=== PATIENT | female | born 1965 | race Caucasian/White ===

== ENCOUNTER 2019-11-27 10:09 | Outpatient (CLI) | payer OTHER, SELFPAY ==
--- NOTE | 2019-11-27 10:27 | XR_ITS ---
WS: [id number] Lumbar spine, 3 views, 11/27/2019 Clinical Data: sciatic nerve pain Comparison: Lumbar spine, 12/17/2013. Findings: No compression fractures or subluxation is seen. There is degenerative disc narrowing at L4-L5. Anter ior osteophyte formation at L4 and L5 is noted.. The transverse processes and SI joints are normal. XR/XR lumbar spine 2-3V* [id number] Impression: 1. Degenerative disc narrowing at L4-L5. 2. Moderate anterior osteophytes at L4 and L5.
== END 2019-11-27 10:10 | disposition home or self-care (01) ==
LOC: RAD 10:14
PROVIDERS: Family Provider Nurse Practitioner; PCP Nurse Practitioner; Visit Provider Nurse Practitioner Family
DX: M54.31 Sciatica, right side (principal); M54.32 Sciatica, left side; M47.896 Other spondylosis, lumbar region; M25.78 Osteophyte, vertebrae
CPT/HCPCS: 72100

== ENCOUNTER → 2021-03-26 11:26 | Outpatient (BNVA) | payer OTHER, SELFPAY | PROVIDERS: Family Provider Nurse Practitioner; PCP Nurse Practitioner; Visit Provider Family Medicine | DX: M35.3 Polymyalgia rheumatica (principal); M25.50 Pain in unspecified joint | CPT/HCPCS: 84550; 85651; 86160; 86162; 86235; 86255; 86376; 86431 ==

== ENCOUNTER 2021-05-09 15:45 | Emergency (ER) | payer OTHER, SELFPAY ==
[2021-05-09 16:16] VITALS: BP 144/89; PULSE 78; RESP 18; TEMP 36.7; O2SAT 98; BMI 23.6
[2021-05-09 16:37] VITALS: BP 128/82; PULSE 78; RESP 16; O2SAT 99
--- NOTE | 2021-05-09 17:51 | W.ED.GENADLT ---
HPI - General Adult General: Chief complaint: COVID symptoms Stated complaint: covid + with symptoms Time Seen by Provider: 05/09/21 16:26 History of Present Illness: HPI narrative: HPI: This is a 56 yo patient w/ hx of COVID diagnosis 7 days ago presenting to the ED with nausea/vomiting/diarrhea and decreased p.o. intake since diagnosis. Denies cough, malaise, generalized weakness, loss of taste, chest pain, N/V, diaphoresis, exertional shortness of breath, or complaints. Denies any pleuritic chest pain, recent surgery/immobilization/travel, or hematemesis or hx of VTE in the past. Patient has a portable pulse ox at home with normal reading, denies any exertional chest pain or shortness of breath Onset: 7 days ago Duration: ongoing for the last 7 days Location: home Severity: mild Review of Systems Narrative: Constitutional: No subjective fever, no generalized weakness HEENT: No vision changes CV: No chest pain, no palpitations PULM: no cough, no dyspnea. GI: No abdominal pain, +N/+V/+D. : No dysuria MSKEL: No muscle pain SKIN: No new rashes, no lesions. NEURO: No headache, no focal weakness. HEME: No visible bruises PSYCH: Normal mood PFSH ED PFSH: Medical History (Updated 05/09/21 @ 18:16 by Rose Phillips MD) Lumbago with sciatica Polymyalgia rheumatica Surgical History No history of previous surgery Family History Father Cancer Colon cancer Sister Cancer Colon cancer Diabetes Mother Diabetes Rheumatoid arthritis Grandmother CAD (coronary artery disease) Social History Smoking and tobacco status: never smoked Alcohol intake: never Lives independently: Yes Household members: family Housing: House Marital status: / History of recent travel: No Physical Exam Narrative: EXAM NARRATIVE: Head: Atraumatic Eyes: PERRL, conjunctiva without injection ENT: Mucous membrane moist NECK: Supple without lymphadenopathy LUNGS: Clear lung sounds, no crackles/wheezes/rhonchi on exam CV: RRR ABDOMEN: Soft, nontender in all quadrants, no guarding or rebound tenderness no CVA tenderness EXTREMITY: Normal ROM SKIN: No rash or erythema NEURO: Awake and alert. No focal motor deficits. PSYCH: Normal mood and affect. Course Vital Signs: Vital signs: Vital Signs Temperature 98.1 F 05/09/21 16:16 Pulse Rate 65 05/09/21 18:42 Respiratory Rate 18 05/09/21 18:42 Blood Pressure 121/83 05/09/21 18:42 Pulse Oximetry 97 05/09/21 18:42 MDM - General Adult MDM Narrative: Medical decision making narrative: 56yo patient presenting to the ED nausea vomiting diarrhea after diagnosis of Covid 7 days ago. Patient has had decreased p.o. intake. On arrival, patient has O2 sat greater than 95%. No signs of increased work of breathing. Intervention: Zofran, reassess [6:13] On reassessment, patient continues to in in respiratory distress. No signs of hypoxia. On ambulation, patient continues to have persistent O2 sat > 95%. Patient has been to tolerate p.o. without any difficulty in the emergency room after Zofran. Rx: Zofran as needed nausea vomiting Disposition: Discharge. Strict return instructions discussed at bedside including any signs of respiratory distress, dehydration, persistent fever, or any new or concerning symptoms. Patient in agreement with the plan and reassures me that the patient will follow up a primary care provider in 24-48 hrs for revaluation for any concerns or other issues. Discharge Plan Discharge Patient Disposition: Home Clinical Impression: Nausea & vomiting, Diarrhea, COVID-19 Condition: Stable Prescriptions: New Zofran 4 mg tablet 4 mg PO TID PRN (Reason: nausea and vomiting) 3 Days RF: 0 No Action celecoxib [Celebrex] 200 mg capsule 200 mg PO BID Qty: 60 RF: 1 ondansetron 8 mg tablet,disintegrating 8 mg PO Q8H PRN (Reason: nausea and vomiting) Qty: 20 RF: 1 Discharge Orders: Discharge ED (Routine); Ordered 05/09/21 Ordered By: Rose Phillips Referrals: Julisa Santiago MD [Primary Care Provider] - Discharge Diet: Advance as tolerated Discharge Activity: Resume usual activity Patient Instructions: Severe Acute Respiratory Syndrome (SARS) (ED) Activity Restrictions/Additional Instructions: Come back if your symptoms worsen. 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
[2021-05-09] MEDS: ondansetron 4 MG Tablet PO (17:52)
[2021-05-09 18:42] VITALS: BP 121/83; PULSE 65; RESP 18; O2SAT 97
== END 2021-05-09 18:42 | disposition home or self-care (01) ==
PROVIDERS: Emergency Provider Emergency Medicine; PCP Family Medicine
DX: U07.1 COVID-19 (principal)
CPT/HCPCS: 99282; Q0162

== ENCOUNTER 2021-05-19 11:37 | Outpatient (CLI) | payer OTHER, SELFPAY ==
--- NOTE | 2021-05-19 11:58 | XRR_ITS ---
PROCEDURE INFORMATION: Exam: XR Right Foot Exam date and time: 05/19/2021 11:58 AM Age: 56 years old Clinical indication: Pain; Foot; Bilateral; Additional info: Z79.899 - other retirement (current) drug therapy TECHNIQUE: Imaging protocol: XR Right foot. Views: 3 or more views. COMPARISON: CR XR knee RT 3V* [id number] 05/19/2021 12:20 PM FINDINGS: Bones/joints: No irregular osseous erosions. Joint spaces of the foot are preserved. Negative for fracture. Soft tissues: Normal. XR/XR foot RT min 3V* [id number] IMPRESSION: No radiographic sequela of inflammatory arthropathy involving the right foot.
--- NOTE | 2021-05-19 11:58 | XRR_ITS ---
PROCEDURE INFORMATION: Exam: XR Right Hand Exam date and time: 05/19/2021 11:58 AM Age: 56 years old Clinical indication: Pain; Hand; Bilateral; Additional info: Z79.899 - other skilled nursing (current) drug therapy TECHNIQUE: Imaging protocol: XR Right hand. Views: 3 or more views. COMPARISON: No relevant prior studies available. FINDINGS: Bones/joints: No irregular osseous erosions. Joint spaces of the hand and wrist are preserved. Negative for fracture. Soft tissues: Normal. XR/XR hand RT min 3V* [id number] IMPRESSION: No radiographic sequela of inflammatory arthropathy involving the right hand/wrist.
--- NOTE | 2021-05-19 11:58 | XRR_ITS ---
PROCEDURE INFORMATION: Exam: XR Chest Exam date and time: 05/19/2021 11:58 AM Age: 56 years old Clinical indication: Pain; Other: Joint; Additional info: Z79.899 - other [facility] (current[facility] drug therapy TECHNIQUE: Imaging protocol: XR of the chest. Views: 2 views. COMPARISON: CT Cervical Spine wo* [id number] 07/24/2016 12:02 PM FINDINGS: Lungs: Mild biapical scarring. Some suspected minor scarring at the right lung base. No consolidation. Pleural spaces: Unremarkable. No pleural effusion. No pneumothorax. Heart/Mediastinum: Unremarkable. No cardiomegaly. Bones/joints: Visualized osseous structures are intact. XR/XR chest 2V* [id number] IMPRESSION: Minor areas of scarring. No focal consolidation.
--- NOTE | 2021-05-19 11:58 | XRR_ITS ---
PROCEDURE INFORMATION: Exam: XR Left Foot Exam date and time: 05/19/2021 11:58 AM Age: 56 years old Clinical indication: Pain; Foot; Bilateral; Additional info: Z79.899 - other group home (current) drug therapy TECHNIQUE: Imaging protocol: XR Left foot. Views: 3 or more views. COMPARISON: CR XR knee LT 3V* [id number] 05/19/2021 12:23 PM FINDINGS: Bones/joints: No irregular osseous erosions. Joint spaces of the left foot are preserved. Negative for fracture. Soft tissues: Normal. XR/XR foot LT min 3V* [id number] IMPRESSION: No radiographic sequela of inflammatory arthropathy involving the left foot.
--- NOTE | 2021-05-19 11:58 | XRR_ITS ---
PROCEDURE INFORMATION: Exam: XR Left Hand Exam date and time: 05/19/2021 11:58 AM Age: 56 years old Clinical indication: Pain; Hand; Bilateral; Additional info: Z79.899 - other shelter (current) drug therapy TECHNIQUE: Imaging protocol: XR Left hand. Views: 3 or more views. COMPARISON: No relevant prior studies available. FINDINGS: Bones/joints: No irregular osseous erosions. Joint spaces are preserved. Negative for fracture. Soft tissues: Normal. XR/XR hand LT min 3V* [id number] IMPRESSION: No radiographic sequela of inflammatory arthropathy involving the left hand/wrist.
--- NOTE | 2021-05-19 11:58 | XRR_ITS ---
PROCEDURE INFORMATION: Exam: XR Right Knee Exam date and time: 05/19/2021 11:58 AM Age: 56 years old Clinical indication: Pain and condition or disease; Multiple sites; Type of osteoarthritis not specified; Bilateral; Knee; Additional info: M19.90 - unspecified osteoarthritis, unspecified site TECHNIQUE: Imaging protocol: XR Right knee. Views: 3 views. COMPARISON: No relevant prior studies available. FINDINGS: Bones/joints: No irregular osseous erosions. Joint spaces are preserved. Negative for fracture. Soft tissues: Normal. XR/XR knee RT 3V* [id number] IMPRESSION: No radiographic sequela of inflammatory arthropathy involving the right knee.
--- NOTE | 2021-05-19 11:58 | XRR_ITS ---
PROCEDURE INFORMATION: Exam: XR Left Knee Exam date and time: 05/19/2021 11:58 AM Age: 56 years old Clinical indication: Pain and condition or disease; Multiple sites; Type of osteoarthritis not specified; Bilateral; Knee; Additional info: M19.90 - unspecified osteoarthritis, unspecified site TECHNIQUE: Imaging protocol: XR Left knee. Views: 3 views. COMPARISON: No relevant prior studies available. FINDINGS: Bones/joints: No irregular osseous erosions. Joint spaces of the knee are preserved. Negative for fracture. Soft tissues: Normal. XR/XR knee LT 3V* [id number] IMPRESSION: No radiographic sequela of inflammatory arthropathy involving the left knee.
[2021-05-19 14:27] LABS: 25 Hydroxy Vitamin D 28 ng/mL (30-100); Alanine Aminotransferase 21 U/L (0-33); Alkaline Phosphatase 68 IU/L (35-105); Aspartate Amino Transferase 24 U/L (0-32); Globulin 3.3 g/dL (1.3-4.6); Glomerular Filtration Rate 56.9 mL/min (90-130); Total Bilirubin 0.2 mg/dL (0.15-1.2); Total Protein 7.3 g/dL (6.6-8.7)
[2021-05-19 15:06] LABS: Hepatitis B Core AB, Total Non-Reactive (Nonreactive); Hepatitis B Surface Antigen Non-Reactive (Nonreactive); Hepatitis C Virus Antibody Non-Reactive (Nonreactive)
[2021-05-20 15:28] LABS: Cyclic Citrullinated Peptide <16 UNITS
[2021-05-21 10:28] LABS: HLA-B27 NEGATIVE (NEGATIVE)
[2021-05-21 15:32] LABS: Quantiferon Mitogen 7.88 IU/mL; Quantiferon Nil 0.01 IU/mL; Quantiferon TB Gold NEGATIVE (NEGATIVE)
== END 2021-05-19 11:38 | disposition home or self-care (01) ==
LOC: RAD 11:50
PROVIDERS: PCP Family Medicine; Visit Provider Internal Medicine Rheumatology
DX: M19.90 Unspecified osteoarthritis, unspecified site (principal); M45.9 Ankylosing spondylitis of unspecified sites in spine; Z79.899 Other long term (current) drug therapy; Z11.59 Encounter for screening for other viral diseases; Z11.1 Encounter for screening for respiratory tuberculosis; Z82.61 Family history of arthritis; Z71.89 Other specified counseling
CPT/HCPCS: 71046; 73130; 73562; 73630; 80076; 82306; 82565; 86480; 86704; 86803; 86812; 87340; 99204

== ENCOUNTER → 2021-07-08 09:20 | Outpatient (BNVA) | payer OTHER, SELFPAY | PROVIDERS: PCP Family Medicine; Visit Provider Internal Medicine Rheumatology | DX: M19.90 Unspecified osteoarthritis, unspecified site (principal); Z79.899 Other long term (current) drug therapy; M70.61 Trochanteric bursitis, right hip; M70.62 Trochanteric bursitis, left hip; Y93.9 Activity, unspecified; Z82.61 Family history of arthritis; Z71.89 Other specified counseling | CPT/HCPCS: 99214 ==

== ENCOUNTER → 2021-08-06 14:39 | Outpatient (BNVA) | payer OTHER, SELFPAY | PROVIDERS: PCP Internal Medicine Rheumatology; Visit Provider Internal Medicine Rheumatology | DX: M19.90 Unspecified osteoarthritis, unspecified site (principal); Z79.899 Other long term (current) drug therapy | CPT/HCPCS: 80076; 82565; 85025; 86140 ==

== ENCOUNTER 2021-08-16 18:36 | Emergency (ER) | payer OTHER, SELFPAY ==
[2021-08-16 19:01] VITALS: BP 105/68; PULSE 108; RESP 18; TEMP 36.9; O2SAT 98; BMI 23.8
[2021-08-16 20:25] LABS: Hematocrit 37.7 % (37.0-47.0); Hemoglobin 12.7 g/dL (11.5-15.3); Mean Corpuscular HGB Conc 33.7 g/dL (30.0-36.0); Mean Corpuscular Hemoglobin 28.9 pg (28.0-34.0); Mean Corpuscular Volume 85.9 fl (81-99); Mean Platelet Volume 9.9 fL (7.4-10.4); Platelet Count 423 10^3/cmm (130-400); Red Blood Count 4.39 10^6/uL (4.1-5.3); Red Cell Distribution Width 13.5 % (12.1-15.1); White Blood Count 9.7 10^3/uL (4.0-10.0)
--- NOTE | 2021-08-16 20:31 | W.ED.GENADLT ---
HPI - General Adult General: Chief complaint: Nausea/Vomiting/Diarrhea Stated complaint: Dehydrated From Medicine Time Seen by Provider: 08/16/21 20:01 History of Present Illness: HPI narrative: Patient is a 56-year-old female with w/ hx of RA presenting to the emergency room with watery stool the source exacerbated with p.o. intake. Patient states that no other family member has had similar symptoms. Patient denies any recent antibiotics, recent hospitalization. Patient has any melena or hematochezia in stool. Patient tells me that every time she eats, she has to go to the bathroom and has liquidy stool. Patient reports mild retching without any significant nausea or vomiting. Patient denies any fever or chills, or abdominal pain. Patient has no associated chest pain, shortness breath, palpitation, lightheadedness, complaints. No hx of Crohn's or ulcerative colitis. Onset:3 days ago Duration:3 days Location:home Severity:moderate Review of Systems Narrative: Constitutional: No fever, no chills. HEENT: No vision changes CV: No chest pain, no palpitations PULM: no cough, no dyspnea. GI: No abdominal pain, -N/-V/+D. : No dysuria MSKEL: No muscle pain SKIN: No new rashes, no lesions. NEURO: No headache, no focal weakness. HEME: No visible bruises PSYCH: Normal mood PFSH ED PFSH: Medical History High risk medication use Immunization counseling Inflammatory arthritis Lumbago with sciatica Polymyalgia rheumatica Surgical History No history of previous surgery Family History Father Cancer Colon cancer Sister Cancer Colon cancer Diabetes Mother Diabetes Rheumatoid arthritis Grandmother CAD (coronary artery disease) Other Psychiatric illness Denies family history of PMR (polymyalgia rheumatica) Lupus Hyperlipidemia Lung disease Hypertension Stroke Social History Smoking and tobacco status: never smoked Alcohol intake: never Lives independently: Yes Household members: family Housing: House Marital status: / History of recent travel: No Physical Exam Narrative: EXAM NARRATIVE: Head: Atraumatic Eyes: PERRL, conjunctiva without injection ENT: Mucous membrane moist NECK: Supple, ROM intact LUNGS: LCTAB, no crackles/rhonchi CV: Sinus tachycardia ABDOMEN: Soft, no focal TTP. NO guarding rebound, guarding, rigidity. No CVA tenderness to percussion. Neg Palacio/Neg McBurney's point tenderness, no suprabupic tenderness to palpation. EXTREMITY: Normal ROM SKIN: No rash or erythema NEURO: Awake and alert, no focal motor deficits PSYCH: Normal mood and affect Course Vital Signs: Vital signs: Vital Signs Temperature 98.4 F 08/16/21 21:07 Pulse Rate 97 08/16/21 22:22 Respiratory Rate 16 08/16/21 22:22 Blood Pressure 96/54 08/16/21 22:22 Pulse Oximetry 98 08/16/21 21:07 MDM - General Adult MDM Narrative: Medical decision making narrative: Patient is a 56 female with a history of rheumatoid arthritis presenting to the emergency room with diarrhea x3 days worse with p.o. intake. On exam, patient is mild noted to be mild tachycardic. Afebrile. Abdominal exam benign. Otherwise does not appear to be dry on exam. Work-up today includes CBC, CMP, lipase, UA, and C diff Intervention: IVF, p.o. challenge On reassessment, patient's heart rate improved with IVF. Patient is able to tolerate p.o. White count of blank which is consistent with baseline. Do not suspect acute infection as patient is afebrile. Rx maalox, pepcid PRN dyspepsia I have given patient follow up with our correctional casework specialist to be seen by our PCP for evaluation of diarrhea. Patient aware of a call from our correctional casework specialist to schedule for appointment(s) and verbalizes understanding of the importance of following up. Patient is encouraged to drink plenty water and eat food to keep up with volume output from diarrhea. Suspect gastroenteritis at this time. No suspicion for other acute intra-abdominal pathology including SBO, biliary pathology, appendicitis, diverticulitis, or other emergent condition requiring surgery. Disposition: Discharge. Patient counseled regarding diagnostic impression, treatment plan. Patient given ED strict return precautions to return for continuation, worsening, or development of new symptoms. Instructed to f/u w/ PCP regarding symptoms today. Patient verbalized understanding. Lab Data: Labs: Lab Results 08/16/21 08/16/21 20:15 20:15 WBC 9.7 10^3/uL 10^3/ uL (4.0-10.0) RBC 4.39 10^6/uL 10^6 /uL (4.1-5.3) Hgb 12.7 g/dL g/dL (11.5-15.3) Hct 37.7 % % (37.0-47.0) MCV 85.9 fl fl (81-99) MCH 28.9 pg pg (28.0-34.0) MCHC 33.7 g/dL g/dL (30.0-36.0) RDW 13.5 % % (12.1-15.1) Plt Count 423 10^3/cmm H 10 ^3/cmm (130-400) MPV 9.9 fL fL (7.4-10.4) Lymph % (Auto) Not Reportable Daggett % (Auto) Not Reportable Lymph # (Auto) Not Reportable Daggett # (Auto) Not Reportable Total Counted 100 (0-100) Atypical Lymphs % 0.0 % % (0-5) Absolute Neutrophi ls 7.6 10^3/cmm H 10 ^3/cmm (1.4-6.5) Segmented Neutroph ils 52 % % Abs Segm Neuts (Ma n) 5.0 10/cmm 10/cmm (1.6-7.1) Band Neutrophils 26.0 % % Abs Band Neuts (Ma n) 2.5 10^3/cmm H 10 ^3/cmm (0.0-1.2) Absolute Lymphocyt es 1.4 10^3/cmm 10^3 /cmm (1.2-3.4) Lymphocytes (Manua l) 14 % % Monocytes (Manual) 4.0 % % Absolute Monocytes 0.4 10^3/cmm 10^3 /cmm (0.1-0.6) Eosinophils (Manua l) 1 % % Absolute Eosinophi ls 0.0 10^3/cmm 10^3 /cmm (0.0-0.7) Basophils (Manual) 0.0 % % Absolute Basophils 0.0 10^3/cmm 10^3 /cmm (0.0-0.2) Metamyelocytes 3.0 % % Platelet Estimate Increased H (Normal) Giant Platelets 1+ H Polychromasia Trace Spherocytes Trace Sodium 137 mmol/L mmol/L (136-145) Potassium 3.8 mmol/L mmol/L (3.5-5.1) Chloride 99 mmol/L mmol/L (98-107) Carbon Dioxide 22 mmol/L mmol/L (22-29) Anion Gap 19.8 H (5-19) BUN 11 mg/dL mg/dL (6-20) Creatinine 1.1 mg/dL H mg/dL (0.5-0.9) GFR Calculation 51.0 mL/min L mL/ min (90-130) Glucose 105 mg/dL mg/dL (65-115) Calculated Osmolal ity 284 mOsm/kg L mOs m/kg (285-295) Calcium 8.5 mg/dL mg/dL (8.5-10.5) Total Bilirubin 0.4 mg/dL mg/dL (0.15-1.2) AST 31 U/L U/L (0-32) ALT 36 U/L H U/L (0-33) Alkaline Phosphata se 144 IU/L H IU/L (35-105) Total Protein 6.7 g/dL g/dL (6.6-8.7) Albumin 3.9 g/dL g/dL (3.5-5.2) Globulin 2.8 g/dL g/dL (1.3-4.6) Lipase 46 U/L U/L (13-60) Discharge Plan Discharge Patient Disposition: Home Clinical Impression: Diarrhea Condition: Stable Prescriptions: New Pepcid 20 mg tablet 20 mg PO BID PRN (Reason: abdominal pain) 10 Days Qty: 20 RF: 0 Maalox Advanced 1,000-60 mg tablet,chewable 1 tab PO TID PRN (Reason: abdominal pain) 7 Days Qty: 21 RF: 0 No Action hydroxychloroquine 200 mg tablet 200 mg PO BID Qty: 60 RF: 3 prednisone 20 mg tablet See Rx Instructions PO .COMPLEX PRN (Reason: joint pain flare) Qty: 30 RF: 1 diclofenac sodium 1 % gel 2 g topical QID Qty: 100 RF: 2 leflunomide 20 mg tablet 20 mg PO DAILY Qty: 30 RF: 3 diclofenac sodium 75 mg tablet,delayed release (DR/EC) 75 mg PO BID PRN (Reason: PRN for moderate to severe pain ) Qty: 30 RF: 1 Discharge Orders: Discharge ED (Routine); Ordered 08/16/21 Ordered By: Rose Phillips Referrals: Ty Asif MD [Primary Care Provider] - Discharge Diet: Advance as tolerated Discharge Activity: Resume usual activity Patient Instructions: Acute Diarrhea (ED) Activity Restrictions/Additional Instructions: Follow-up with your primary care provider for evaluation of your diarrhea. Come back to the emergency room you have any new or concerning complaints including fever chills, pain, worsening diarrhea, blood in the stool, or any new concerning complaints. Coding Level of Care Code ED Shark Biologist for Bert Smith
[2021-08-16] MEDS: lactated ringers 1,000 ML 999 ML IV ×2 (20:39→22:03)
[2021-08-16 20:43] LABS: Alanine Aminotransferase 36 U/L (0-33); Albumin Level 3.9 g/dL (3.5-5.2); Alkaline Phosphatase 144 IU/L (35-105); Anion Gap 19.8 (5-19); Aspartate Amino Transferase 31 U/L (0-32); Blood Urea Nitrogen 11 mg/dL (6-20); Calcium 8.5 mg/dL (8.5-10.5); Carbon Dioxide 22 mmol/L (22-29); Chloride 99 mmol/L (98-107); Globulin 2.8 g/dL (1.3-4.6); Glucose 105 mg/dL (65-115); Lipase 46 U/L (13-60); Osmolality Calculated 284 mOsm/kg (285-295); Potassium 3.8 mmol/L (3.5-5.1); Sodium 137 mmol/L (136-145); Total Bilirubin 0.4 mg/dL (0.15-1.2); Total Protein 6.7 g/dL (6.6-8.7)
[2021-08-16 20:52] LABS: Slide Review Slide Review Perform; Total Cells Counted 100 (0-100)
[2021-08-16 20:53] LABS: Absolute Neutrophil 7.6 10^3/cmm (1.4-6.5); Band Neutrophils Absolute 2.5 10^3/cmm (0.0-1.2); Eosinophils 1 %; Giant Platelets 1+; Lymphocytes 14 %; Lymphocytes Absolute 1.4 10^3/cmm (1.2-3.4); Monocytes Absolute 0.4 10^3/cmm (0.1-0.6); Platelet Estimate Increased (Normal); Polychromasia Trace; Segmented Neutrophils 52 %; Spherocytes Trace
[2021-08-16 21:07] VITALS: BP 98/67; PULSE 101; RESP 18; TEMP 36.9; O2SAT 98
[2021-08-16] MEDS: lidocaine 2% viscous 15 ML, aluminum-mag hydrox-simethicon 30 ML, sucralfate oral liq 1 GM PO (21:31)
[2021-08-16 22:22] VITALS: BP 96/54; PULSE 97; RESP 16
[2021-08-16 23:17] VITALS: BP 109/60; PULSE 94; RESP 16; O2SAT 98
--- NOTE | 2021-08-24 14:03 | DCPLANNER ---
banquet manager had message to speak with patient about getting established with a primary care physician. banquet manager called phone number [phone], unable to speak with patient at this time. banquet manager did leave a voicemail for patient to return case investigator phone call.
== END 2021-08-16 23:21 | disposition home or self-care (01) ==
PROVIDERS: Emergency Provider Emergency Medicine; PCP Internal Medicine Rheumatology
DX: R19.7 Diarrhea, unspecified (principal)
CPT/HCPCS: 80053; 83690; 85007; 85025; 87493; 96360; 96361; 99284

== ENCOUNTER → 2021-08-19 13:25 | Outpatient (BNVA) | payer OTHER, SELFPAY | PROVIDERS: PCP Internal Medicine Rheumatology; Visit Provider Nurse Practitioner Family | DX: R19.7 Diarrhea, unspecified (principal); R11.0 Nausea; K29.70 Gastritis, unspecified, without bleeding; R11.10 Vomiting, unspecified | CPT/HCPCS: 80053; 85007 ==

== ENCOUNTER 2021-08-23 01:25 | Inpatient (IN) | payer OTHER, SELFPAY ==
[2021-08-23] VITALS (7 sets, daily range): BP systolic 90–110; BP diastolic 59–72; PULSE 91–123; RESP 14–20; TEMP 36.1–37.7; O2SAT 93–98; BMI 22.8
--- NOTE | 2021-08-23 02:11 | CTR_ITS ---
PROCEDURE INFORMATION: Exam: CT Abdomen And Pelvis With Contrast Exam date and time: 08/23/2021 2:11 AM Age: 56 years old Clinical indication: Nausea and vomiting; Abdominal pain; Epigastric; Additional info: Nausea vomiting abd pain TECHNIQUE: Imaging protocol: Computed tomography of the abdomen and pelvis with contrast. Radiation optimization: All CT scans at this facility use at least one of these dose optimization techniques: automated exposure control; mA and/or kV adjustment per patient size (includes targeted exams where dose is matched to clinical indication); or iterative reconstruction. Contrast material: OMNI 300; Contrast volume: 95 ml; Contrast route: INTRAVENOUS (IV); COMPARISON: CR XR chest 2V* [id number] 05/19/2021 12:15 PM RADIATION DOSE METRICS: Total DLP (mGy-cm): 1192.46 FINDINGS: Lungs: The lung bases are clear. No effusion Liver: There is a subcentimeter low-attenuation lesion of the liver which is too small to accurately characterize but may represent a cyst. There is focal fatty infiltration along the falciform ligament. Gallbladder and bile ducts: No wall thickening, pericholecystic fluid or stones. Pancreas: There is mild peripancreatic fat stranding. Normal pancreatic enhancement. Spleen: Spleen is normal. Adrenal glands: Normal. No mass. Kidneys and ureters: There is a subcentimeter low-attenuation lesion/lesions, of the left kidney which are too small to accurately characterize by CT. Stomach and bowel: Unremarkable. No obstruction. No mucosal thickening. Appendix: No evidence of appendicitis. Intraperitoneal space: Unremarkable. No free air. No significant fluid collection. Vasculature: Unremarkable. No abdominal aortic aneurysm. Lymph nodes: Unremarkable. No enlarged lymph nodes. Urinary bladder: Unremarkable as visualized. Reproductive: Unremarkable as visualized. Bones/joints: Unremarkable. No acute fracture. Soft tissues: Unremarkable. CT/CT abdomen pelvis w con* [id number] IMPRESSION: Mild Acute pancreatitis without necrosis. COMMENTS: Consistent with the [employer]'s Incidental Findings Committee white paper (J Am Vannesa Radiol 2018): Any incidental renal lesion less than 1 cm or classified as too small to characterize, or any incidental cystic renal lesion characterized as simple-appearing, is likely benign. No follow-up imaging is recommended for these lesions per consensus recommendations based on imaging criteria. Radiation Dose CTDIVOL = (mGy): DLP = 1192.46 (mGy-cm)
[2021-08-23] MEDS: ondansetron 2 mg/ML SDV 2 mL 4 MG IVP ×3 (02:21→14:07)
[2021-08-23] MEDS: sodium chloride 0.9% 1,000 ML 999 ML IV (02:21)
[2021-08-23 02:27] LABS: Basophils # 0.2 10^3/uL (0.0-0.1); Basophils % 0.9 %; Eosinophils # 0.1 10^3/uL (0.0-0.8); Eosinophils % 0.3 %; Hematocrit 40.2 % (37.0-47.0); Hemoglobin 13.5 g/dL (11.5-15.3); Lymphocytes # 0.4 10^3/uL (0.8-4.8); Lymphocytes % 2.3 %; Mean Corpuscular HGB Conc 33.6 g/dL (30.0-36.0); Mean Corpuscular Hemoglobin 28.2 pg (28.0-34.0); Mean Corpuscular Volume 84.1 fl (81-99); Mean Platelet Volume 9.8 fL (7.4-10.4); Monocytes # 0.8 10^3/uL (0.2-0.9); Monocytes % 4.7 %; Neutrophils # 15.36 10^3/uL (1.8-7.7); Nucleated Red Blood Cells % 0 %; Platelet Count 573 10^3/cmm (130-400); Red Blood Count 4.78 10^6/uL (4.1-5.3); Red Cell Distribution Width 13.8 % (12.1-15.1); White Blood Count 16.9 10^3/uL (4.0-10.0)
[2021-08-23 02:46] LABS: Alanine Aminotransferase 22 U/L (0-33); Albumin Level 3.8 g/dL (3.5-5.2); Alkaline Phosphatase 132 IU/L (35-105); Anion Gap 22.3 (5-19); Aspartate Amino Transferase 19 U/L (0-32); Blood Urea Nitrogen 21 mg/dL (6-20); C Reactive Protein 61.8 mg/L (0.0-4.9); Calcium 8.2 mg/dL (8.5-10.5); Carbon Dioxide 21 mmol/L (22-29); Chloride 96 mmol/L (98-107); Globulin 3.3 g/dL (1.3-4.6); Glomerular Filtration Rate 22.9 mL/min (90-130); Glucose 147 mg/dL (65-115); Lipase 215 U/L (13-60); Osmolality Calculated 288 mOsm/kg (285-295); Potassium 3.3 mmol/L (3.5-5.1); Sodium 136 mmol/L (136-145); Total Bilirubin 0.5 mg/dL (0.15-1.2); Total Protein 7.1 g/dL (6.6-8.7)
[2021-08-23] MEDS: iohexol 300 mg/mL 100 mL Btl IV (02:49)
[2021-08-23 02:53] LABS: Procalcitonin 0.61 ng/mL (0-0.5)
[2021-08-23 03:07] LABS: Add Urine Microscopic? YES; Bilirubin Urine 1+ (Negative); Blood Urine Neg (Negative); Glucose Urine UA Norm (Normal); Ketones Urine 1+ (Negative); Leukocyte Esterase Urine 2+ (Negative); Nitrate Urine Positive (Negative); Protein Urine 2+ (Negative); Specific Gravity, Urine 1.025 (1.005-1.030); Urine Appearance SL Hazy (CLEAR); Urine Color Amber (Yellow); Urobilinogen Urine 4 mg/dL (Negative); pH Urine 5 (5-7)
[2021-08-23 03:23] LABS: RBC Urine 0-4 /hpf (0-2); WBC Urine 80-100 /hpf (0-5)
[2021-08-23 03:25] LABS: Add Urine Culture? Yes; Amorphous Sediment Urine 1+ /hpf; Bacteria Urine 3+ /hpf; Calcium Oxalate Crystals Urine 0-4 /hpf
[2021-08-23] MEDS: cefTRIAXone 1,000 MG in sodium chloride 0.9% (plus) 50 ML 100 MG IV ×2 (04:14→15:35)
--- NOTE | 2021-08-23 05:15 | ED_ITS ---
HPI - Nausea/Vomiting/Diarrhea General: Chief complaint: Nausea/Vomiting/Diarrhea Stated complaint: N/V Time Seen by Provider: 08/23/21 01:58 History of Present Illness: HPI Narrative: 56-year-old female with no prior history of belly surgery. She presents for the second time for similar complaints of nausea and vomiting and diarrhea. She notes her diarrhea resolved after her visit to the ER, but she is continued to have vomiting. She saw her PCP, got a shot for nausea and is still vomiting. She complains of epigastric pain wrapping around her belly into her back. No fever. No blood in the vomitus. MD elicited complaint: nausea, vomiting and abdominal pain Onset (ago): day(s) Description of vomiting: food contents and watery Associated nausea: Yes Associated abdominal pain: Yes Location of pain: Epigastric Radiation: other Pain consistency: constant Quality: aching Exacerbating factors: eating Relieving factors: none Associated symtoms: Reports decreased urine output, dizziness and nausea; Denies altered mental status, bloating, chest pain, cough, diaphoresis, dysuria, epistaxis or fevers/chills Review of Systems Const: Denies: diaphoresis ENMT: Denies: epistaxis Card: Denies: chest pain GI: Reports: nausea; Denies: bloating : Denies: dysuria Neuro: Reports: dizziness PFSH ED PFSH: Medical History High risk medication use Immunization counseling Inflammatory arthritis Lumbago with sciatica Polymyalgia rheumatica Surgical History No history of previous surgery Family History Father Cancer Colon cancer Sister Cancer Colon cancer Diabetes Mother Diabetes Rheumatoid arthritis Grandmother CAD (coronary artery disease) Other Psychiatric illness Denies family history of PMR (polymyalgia rheumatica) Lupus Hyperlipidemia Lung disease Hypertension Stroke Social History Smoking and tobacco status: never smoked Alcohol intake: never Lives independently: Yes Household members: family Housing: House Marital status: / History of recent travel: No Physical Exam Const: EXAM LIMITATIONS: no altered mental status HENMT: COMMON NORMALS: normocephalic and atraumatic HEAD & SCALP: normocephalic and atraumatic MOUTH: moist mucous membranes not abnormal Chest: COMMONS NORMALS: normal inspection of the chest Resp: COMMON NORMALS: normal respiratory effort, No use of accessory muscles and clear to auscultation bilaterally AUSCULTATION: clear to auscultation bilaterally Cardio: COMMON NORMALS: regular rate and regular rhythm RATE: regular rate RHYTHM: regular rhythm GI: COMMON NORMALS: Soft to palpation INSPECTION: Yes normal to inspection and Yes abdominal distension (Mild) PALPATION: Yes Soft to palpation and Yes Tenderness to palpation present (GI) (Epigastric) Extremity: GENERAL: No edema Course Vital Signs: Vital signs: Vital Signs Temperature 97 F L 08/23/21 01:35 Pulse Rate 100 08/23/21 05:18 Respiratory Rate 14 08/23/21 04:12 Blood Pressure 94/67 08/23/21 05:18 Pulse Oximetry 97 08/23/21 05:18 MDM - Nausea/Vomiting/Diarrhea MDM Narrative: Medical decision making narrative: White blood cell count is 17. Potassium 3.3, bicarbonate 21. Creatinine is up to 2.2 from 1.1 a few days ago. She has a urinary tract infection by urinalysis as well. She is receiving antibiotics for that. Fluid resuscitation for the pancreatitis, which appears mild by CT. Lab Data: Labs: Lab Results 08/23/21 08/23/21 08/23/21 02:18 02:18 02:40 WBC 16.9 10^3/uL H 10 ^3/uL (4.0-10.0) RBC 4.78 10^6/uL 10^6 /uL (4.1-5.3) Hgb 13.5 g/dL g/dL (11.5-15.3) Hct 40.2 % % (37.0-47.0) MCV 84.1 fl fl (81-99) MCH 28.2 pg pg (28.0-34.0) MCHC 33.6 g/dL g/dL (30.0-36.0) RDW 13.8 % % (12.1-15.1) Plt Count 573 10^3/cmm H 10 ^3/cmm (130-400) MPV 9.8 fL fL (7.4-10.4) Neut % (Auto) 91.0 % % Lymph % (Auto) 2.3 % % [place] % (Auto) 4.7 % % Eos % (Auto) 0.3 % % Baso % (Auto) 0.9 % % Neut # (Auto) 15.36 10^3/uL H 1 0^3/uL (1.8-7.7) Lymph # (Auto) 0.4 10^3/uL L 10^ 3/uL (0.8-4.8) [place] # (Auto) 0.8 10^3/uL 10^3/ uL (0.2-0.9) Eos # (Auto) 0.1 10^3/uL 10^3/ uL (0.0-0.8) Baso # (Auto) 0.2 10^3/uL H 10^ 3/uL (0.0-0.1) Nucleated RBC % (a uto) 0 % % Nucleated RBCs # 0.0 /100WBC /100W BC Sodium 136 mmol/L mmol/L (136-145) Potassium 3.3 mmol/L L mmol /L (3.5-5.1) Chloride 96 mmol/L L mmol/ L (98-107) Carbon Dioxide 21 mmol/L L mmol/ L (22-29) Anion Gap 22.3 H (5-19) BUN 21 mg/dL H mg/dL (6-20) Creatinine 2.2 mg/dL H mg/dL (0.5-0.9) GFR Calculation 22.9 mL/min L mL/ min (90-130) Glucose 147 mg/dL H mg/dL (65-115) Calculated Osmolal ity 288 mOsm/kg mOsm/ kg (285-295) Calcium 8.2 mg/dL L mg/dL (8.5-10.5) Total Bilirubin 0.5 mg/dL mg/dL (0.15-1.2) AST 19 U/L U/L (0-32) ALT 22 U/L U/L (0-33) Alkaline Phosphata se 132 IU/L H IU/L (35-105) C-Reactive Protein 61.8 mg/L H mg/L (0.0-4.9) Total Protein 7.1 g/dL g/dL (6.6-8.7) Albumin 3.8 g/dL g/dL (3.5-5.2) Globulin 3.3 g/dL g/dL (1.3-4.6) Lipase 215 U/L H U/L (13-60) Procalcitonin 0.61 ng/mL H ng/m L (0-0.5) Urine Color Gisel (Yellow) Urine Appearance Sl hazy (CLEAR) Urine pH 5 (5-7) Ur Specific Gravit y 1.025 (1.005-1.030) Urine Protein 2+ H (Negative) Urine Glucose (UA) Norm (Normal) Urine Ketones 1+ H (Negative) Urine Blood Neg (Negative) Urine Nitrate Positive H (Negative) Urine Bilirubin 1+ H (Negative) Urine Urobilinogen 4 mg/dL H mg/dL (Negative) Ur Leukocyte Gale ase 2+ H (Negative) Urine RBC 0-4 /hpf H /hpf (0-2) Urine WBC 80-100 /hpf H /hp f (0-5) Ur Squamous Epith Cells 5-10 /hpf H /hpf (0-5) Calcium Oxalate Cr ystal 0-4 /hpf H /hpf Amorphous Sediment 1+ /hpf /hpf Urine Bacteria 3+ /hpf H /hpf (NONE) Hyaline Casts 5-10 /lpf H /lpf Discharge Plan Discharge Patient Disposition: Admitted As Inpatient Admit Provider: Karely Siu Clinical Impression: Acute pancreatitis, Urinary tract infection Condition: Stable Discharge Diet: Advance as tolerated Discharge Activity: Increase activity as tolerated Coding Level of Care Code ED Multigraph Operator for [facility] Fwd Exam Detailed
--- NOTE | 2021-08-23 05:35 | PC.NURSE ---
Patient arrived to room 252 bed 2 from ER. Patient c/o of upper abd pain rates at a 4/10. Will call hospitalist for orders. No other needs voiced at this time.
--- NOTE | 2021-08-23 07:30 | P.HP_ITS ---
Providers/Chief Complaint Admitting Physician: Karely Siu MD Primary Care Provider: Julisa Santiago MD Chief Complaint: N/V History of Present Illness Jana Arriaga is a 56 year old female with past medical history of polyarthralgia, concerning for inflammatory arthritis, currently on treatment with leflunomide and hydroxychloroquine as outpatient, history of COVID-07 May 2021, currently presenting with 1 week of nausea vomiting and diarrhea which has not resolved with conservative measures. She presents today with epigastric pain, intractable nausea vomiting dehydration and MONICA. CT of the abdomen and pe, lvis showed mild acute pancreatitis. Elevated lipase noted. UA positive for nitrates, leukocyte esterase, WBC 80-100. No signs of hydronephrosis. Review of Systems General: Reports: 10 or more systems reviewed and unremarkable except in HPI and below Const: Denies: fever(s), chills or body aches Eyes: Denies: change in vision, blurry vision or photophobia ENMT: Reports: hoarseness; Denies: throat pain, enlarged tonsils, odynophagia or nasal congestion Card: Denies: chest pain, palpitations, irregular heart rhythm, edema, swelling of feet/ankles, lightheadedness, pre-syncope, dyspnea on exertion or or thopnea Resp: Denies: dyspnea, productive cough, non-productive cough, wheezing, stridor, pain on inspiration, change in phlegm color, hemoptysis or chest congestion GI: Reports: abdominal pain, nausea and vomiting; Denies: hematemesis, coffee ground emesis, dysphagia, heartburn, diarrhea, constipation, GI cramping, change in stool character, hematochezia or melena : Denies: flank pain, difficulty voiding, dysuria, urinary frequency, urinary urgency, urinary hesitancy or hematuria Musc: Denies: neck pain, back pain, extremity pain, joint swelling, joint warmth or deformity Neuro: Denies: headache(s), numbness in extremities, weakness in extremities, sensory changes, difficulty walking, frequent falls, dizziness, vertigo, behavioral changes, Slurred speech present or seizure-like activity Psych: Denies: anxiety, depression, suicidal ideation or homicidal ideation Endo: Denies: polyuria, polydipsia, tired all the time, cold intolerance or hot flashes Gregg/Lymph: Denies: easy bruising or easy bleeding Medications/Allergies Home Medications Medication Instructions Recorded Confirmed Last Taken Type diclofenac sodium 1 % topical gel 2 g TOPICAL QID #100 g 05/19/21 08/19/21 Unknown Rx hydroxychloroquine 200 mg tablet 200 mg PO BID #60 tab 05/19/21 08/19/21 Unknown Rx prednisone 20 mg tablet See Rx Instructions PO .COMPLEX 05/19/21 08/19/21 Unkn own Rx PRN #30 tab diclofenac sodium 75 mg 75 mg PO BID PRN #30 tab 07/08/21 08/19/21 Unknown Rx tablet,delayed release leflunomide 20 mg tablet 20 mg PO DAILY #30 tab 07/08/21 08/19/21 Unknown Rx famotidine [Pepcid] 20 mg PO BID PRN 10 Days #20 tab 08/16/21 08/19/21 Unknown Rx diphenoxylate-atropine 2.5 1 tab PO QID PRN 10 Days #40 tab 08/19/21 08/19/21 Unknown Rx mg-0.025 mg tablet metronidazole 500 mg tablet 500 mg PO TID 10 Days #30 tab 08/19/21 Unknown Rx promethazine 25 mg tablet 25 mg PO QID PRN 10 Days #40 tab 08/19/21 08/19/21 Unknown Rx Allergies Allergy/AdvReac Type Severity Reaction Status Date / Time Penicillins Allergy ALGY-Hives Verified 08/19/21 11:29 Sulfa (Sulfonamide Allergy ALGY-Hives Verified 08/19/21 11:29 Antibiotics) PFSH Acute PFSH: Medical History (Updated 08/23/21 @ 07:34 by Karely Siu MD) COVID-19 04/2021 High risk medication use Immunization counseling Inflammatory arthritis Lumbago with sciatica Polymyalgia rheumatica Surgical History No history of previous surgery Family History Father Cancer Colon cancer Sister Cancer Colon cancer Diabetes Mother Diabetes Rheumatoid arthritis Grandmother CAD (coronary artery disease) Other Psychiatric illness Denies family history of PMR (polymyalgia rheumatica) Lupus Hyperlipidemia Lung disease Hypertension Stroke Social History Smoking and tobacco status: never smoked Alcohol intake: never Lives independently: Yes Household members: family Housing: House Marital status: / History of recent travel: No Vitals/I&O/Wt Last Vital Signs Temp 97 F L 08/23/21 01:35 Pulse 100 08/23/21 05:18 Resp 14 08/23/21 04:12 BP 94/67 08/23/21 05:18 Pulse Ox 97 08/23/21 05:18 08/22/21 08/23/21 08/23/21 22:59 06:59 14:59 Intake Total 1050 / 1050 Balance 1050 / 1050 Weight last 48 hrs Weight 70.307 kg Weight 70.307 kg Physical Exam Narrative: EXAM NARRATIVE: General: No acute distress, AO x3 HEENT: PERRLA, pupils bilaterally equal and reactive, pallors not present Chest: Normal vesicular breath sounds, no added sounds, equal good air entry bilaterally CVS: S1-S2 regular, no murmurs, no tachycardia, no gallops, no rubs Abdomen: Soft, ttp epigastric region, no organomegaly, bowel sounds present Neuro: No focal deficits, no facial deformity, AO x3, power 5/5 in all limbs Extremities: Healthy surgical dressing present on the right hip, mild tenderness, soft no erythema. Data : 08/23/21 02:18 08/23/21 02:18 Attestation for Other Data: I personally reviewed and interpreted the following: Other data: Laboratory Results WBC 16.9 10^3/uL (4.0-10.0) H 08/23/21 02:18 RBC 4.78 10^6/uL (4.1-5.3) 08/23/21 02:18 Hgb 13.5 g/dL (11.5-15.3) 08/23/21 02:18 Hct 40.2 % (37.0-47.0) 08/23/21 02:18 MCV 84.1 fl (81-99) 08/23/21 02:18 MCH 28.2 pg (28.0-34.0) 08/23/21 02:18 MCHC 33.6 g/dL (30.0-36.0) 08/23/21 02:18 RDW 13.8 % (12.1-15.1) 08/23/21 02:18 Plt Count 573 10^3/cmm (130-400) H 08/23/21 02:18 MPV 9.8 fL (7.4-10.4) 08/23/21 02:18 Neut % (Auto) 91.0 % 08/23/21 02:18 Lymph % (Auto) 2.3 % 08/23/21 02:18 [place] % (Auto) 4.7 % 08/23/21 02:18 Eos % (Auto) 0.3 % 08/23/21 02:18 Baso % (Auto) 0.9 % 08/23/21 02:18 Neut # (Auto) 15.36 10^3/uL (1.8-7.7) H 08/23/21 02:18 Lymph # (Auto) 0.4 10^3/uL (0.8-4.8) L 08/23/21 02:18 [place] # (Auto) 0.8 10^3/uL (0.2-0.9) 08/23/21 02:18 Eos # (Auto) 0.1 10^3/uL (0.0-0.8) 08/23/21 02:18 Baso # (Auto) 0.2 10^3/uL (0.0-0.1) H 08/23/21 02:18 Nucleated RBC % (auto) 0 % 08/23/21 02:18 Nucleated RBCs # 0.0 /100WBC 08/23/21 02:18 Sodium 136 mmol/L (136-145) 08/23/21 02:18 Potassium 3.3 mmol/L (3.5-5.1) L 08/23/21 02:18 Chloride 96 mmol/L (98-107) L 08/23/21 02:18 Carbon Dioxide 21 mmol/L (22-29) L 08/23/21 02:18 Anion Gap 22.3 (5-19) H 08/23/21 02:18 BUN 21 mg/dL (6-20) H 08/23/21 02:18 Creatinine 2.2 mg/dL (0.5-0.9) H 08/23/21 02:18 GFR Calculation 22.9 mL/min (90-130) L 08/23/21 02:18 Glucose 147 mg/dL (65-115) H 08/23/21 02:18 Calculated Osmolality 288 mOsm/kg (285-295) 08/23/21 02:18 Calcium 8.2 mg/dL (8.5-10.5) L 08/23/21 02:18 Total Bilirubin 0.5 mg/dL (0.15-1.2) 08/23/21 02:18 AST 19 U/L (0-32) 08/23/21 02:18 ALT 22 U/L (0-33) 08/23/21 02:18 Alkaline Phosphatase 132 IU/L (35-105) H 08/23/21 02:18 C-Reactive Protein 61.8 mg/L (0.0-4.9) H 08/23/21 02:18 Total Protein 7.1 g/dL (6.6-8.7) 08/23/21 02:18 Albumin 3.8 g/dL (3.5-5.2) 08/23/21 02:18 Globulin 3.3 g/dL (1.3-4.6) 08/23/21 02:18 Lipase 215 U/L (13-60) H 08/23/21 02:18 Procalcitonin 0.61 ng/mL (0-0.5) H 08/23/21 02:18 Urine Color Gisel (Yellow) 08/23/21 02:40 Urine Appearance Sl hazy (CLEAR) 08/23/21 02:40 Urine pH 5 (5-7) 08/23/21 02:40 Ur Specific [place] 1.025 (1.005-1.030) 08/23/21 02:40 Urine Protein 2+ (Negative) H 08/23/21 02:40 Urine Glucose (UA) Norm (Normal) 08/23/21 02:40 Urine Ketones 1+ (Negative) H 08/23/21 02:40 Urine Blood Neg (Negative) 08/23/21 02:40 Urine Nitrate Positive (Negative) H 08/23/21 02:40 Urine Bilirubin 1+ (Negative) H 08/23/21 02:40 Urine Urobilinogen 4 mg/dL (Negative) H 08/23/21 02:40 Ur Leukocyte Esterase 2+ (Negative) H 08/23/21 02:40 Urine RBC 0-4 /hpf (0-2) H 08/23/21 02:40 Urine WBC 80-100 /hpf (0-5) H 08/23/21 02:40 Ur Squamous Epith Cells 5-10 /hpf (0-5) H 08/23/21 02:40 Calcium Oxalate Crystal 0-4 /hpf H 08/23/21 02:40 Amorphous Sediment 1+ /hpf 08/23/21 02:40 Urine Bacteria 3+ /hpf (NONE) H 08/23/21 02:40 Hyaline Casts 5-10 /lpf H 08/23/21 02:40 Impressions Abdomen/Pelvis CT 08/23/21 02:11 IMPRESSION: Mild Acute pancreatitis without necrosis. COMMENTS: Consistent with the [employer]'s Incidental Findings Committee white paper (J Am Vannesa Radiol 2018): Any incidental renal lesion less than 1 cm or classified as too small to characterize, or any incidental cystic renal lesion characterized as simple-appearing, is likely benign. No follow-up imaging is recommended for these lesions per consensus recommendations based on imaging criteria. Radiation Dose CTDIVOL = (mGy): DLP = 1192.46 (mGy-cm) A&P Assessment and plan (1) Acute pancreatitis: Status: Acute (2) Urinary tract infection: Status: Acute (3) Vomiting: Status: Acute (4) Inflammatory arthritis: Status: Acute (5) MONICA (acute kidney injury): Status: Acute Additional A&P Information Admit to [facility] for acute pancreatitis. Intractable nausea, unable to tolerate p.o. intake, signs of dehydration, start IV fluids normal saline at 125 cc an hour with additional KCl 20 for hypokalemia Abdomen pelvis CT with normal gallbladder, no biliary ductal dilatation. Check triglyceride level As needed Zofran for nausea management, as needed morphine for pain control. Avoiding NSAIDs due to noted MONICA. MONICA likely secondary to volume loss from multiple episodes of vomiting, creatinine currently at 2.2. Patient does also have a UTI, however no signs of hydronephrosis on CT or clinical pyelonephritis. Ceftriaxone 1 g IV every 24 hours, await urine culture Hold leflunomide, resume hydroxychloroquine once able to tolerate p.o. intake. Monitor for signs of development of necrosis infection etc. Attestations Medical Necessity Statement*: Greater than 2 midnight admission anticipated for management of acute pancreatitis, MONICA, IV fluids, bowel rest, IV antibiotics for UTI Coding Level of Care Code Acute Product Advisor for [facility] Fwd Diagnoses Acute pancreatitis K85.90 Urinary tract infection N39.0 Vomiting R11.10 Inflammatory arthritis M19.90 MONICA (acute kidney injury) N17.9
[2021-08-23] MEDS: pantoprazole DR 40 mg Tablet PO (07:37)
[2021-08-23] MEDS: enoxaparin 40 mg/0.4 mL Syringe SUBCUT (07:37)
[2021-08-23] MEDS: sodium chlor 0.9% + KCl 20 mEq 20 MEQ/1,000 ML BAG 100 MEQ IV (07:38)
[2021-08-23] MEDS: lactated ringers 1,000 ML 999 ML IV ×2 (09:02→10:10)
[2021-08-23 10:14] LABS: Triglycerides 114 mg/dL (0-150)
--- NOTE | 2021-08-23 11:55 | PM.MISC ---
Miscellaneous Note Note: Patient was seen and examined, she is tolerating liquid diet, she has been vomiting for last 2 weeks, severe dehydration Give 2 L LR bolus this morning for low blood pressure Abdomen soft, no active signs of peritonitis, tender on palpation Looks dehydrated S1, S2 Nonfocal neuro exam Plan: Advance diet as tolerated Continue IV fluids Trend lipase This seems to be drug-induced pancreatitis to me no cholecystitis or gallstones patient is a non-smoker nonalcoholic No active signs of sepsis or necrotic pancreas, no need of antibiotics for now MONICA related to dehydration: Anticipating provement with IV fluids Hypokalemia: Repleted Full code Anticipating discharge within 48 hours
[2021-08-24] VITALS: BP 98/64; PULSE 102; RESP 17; TEMP 37.1; O2SAT 93
[2021-08-24 04:00] VITALS: BP 101/65; PULSE 96; RESP 18; TEMP 37.1; O2SAT 93
[2021-08-24] MEDS: ondansetron 2 mg/ML SDV 2 mL 4 MG IVP (06:23)
[2021-08-24 06:27] LABS: Alanine Aminotransferase 18 U/L (0-33); Albumin Level 2.7 g/dL (3.5-5.2); Alkaline Phosphatase 84 IU/L (35-105); Aspartate Amino Transferase 22 U/L (0-32); Blood Urea Nitrogen 15 mg/dL (6-20); Calcium 7.3 mg/dL (8.5-10.5); Carbon Dioxide 21 mmol/L (22-29); Chloride 103 mmol/L (98-107); Globulin 2.4 g/dL (1.3-4.6); Glomerular Filtration Rate 38.6 mL/min (90-130); Glucose 108 mg/dL (65-115); Osmolality Calculated 287 mOsm/kg (285-295); Sodium 138 mmol/L (136-145); Total Bilirubin 0.2 mg/dL (0.15-1.2); Total Protein 5.1 g/dL (6.6-8.7)
[2021-08-24 06:31] LABS: Lipase 39 U/L (13-60)
[2021-08-24 06:34] LABS: Procalcitonin 0.53 ng/mL (0-0.5)
[2021-08-24 06:37] LABS: Basophils # 0.1 10^3/uL (0.0-0.1); Basophils % 0.6 %; Eosinophils # 0.3 10^3/uL (0.0-0.8); Lymphocytes # 1.4 10^3/uL (0.8-4.8); Lymphocytes % 12.3 %; Mean Corpuscular HGB Conc 33.3 g/dL (30.0-36.0); Mean Corpuscular Hemoglobin 28.1 pg (28.0-34.0); Mean Corpuscular Volume 84.3 fl (81-99); Monocytes % 8.8 %; Neutrophils % 74.8 %; Nucleated Red Blood Cells % 0 %; Platelet Count 425 10^3/cmm (130-400); Red Blood Count 3.56 10^6/uL (4.1-5.3); Red Cell Distribution Width 14.1 % (12.1-15.1)
[2021-08-24] MEDS: enoxaparin 40 mg/0.4 mL Syringe SUBCUT (06:37)
[2021-08-24 07:18] VITALS: BP 90/52; PULSE 93; RESP 16; TEMP 37.7; O2SAT 94
[2021-08-24] MEDS: potassium chloride oral liq 20 mEq/15 mL UDC 40 MEQ PO (08:29)
[2021-08-24] MEDS: pantoprazole DR 40 mg Tablet PO (08:29)
--- NOTE | 2021-08-24 09:54 | PC.CHAP ---
Pastoral Care Encounter/Spiritual Assessment Type of Contact [] Declined pet store merchandiser visit [] Patient/Family/Request visit [] Outpatient visit [] Follow-up visit [] Physician referral [] Code/Alert [x] Routine visit [] Staff referral [] Actively dying [] Patient sleeping [] Family support [] [] Out of room [] Palliative care [] [] Receiving care in room [] Pre-surgical visit [] Trauma [] Long length of stay [] ICU visit [] Other: Relational/Emotional Strength [x Patient feels connected with others/family/visitors/staff [] Distress [] Loneliness/isolation [] Abandonment Spirituality of Patient [x] Person of Jenny [] Attends Mormon of their Jenny [x] Believes in Prayer [] Reads Bible or Presybeterian materials [] There are Spiritual issues to be addressed Narcotics Detective Interventions [x] Prayer [x] Active listening [x] Non-anxious presence [x] Spiritual/emotional support [] Crisis/trauma care [] Spiritual counseling [] Bereavement support [] Provided bereavement packet [] Provided Bible/devotional materials [] Provided toy/stuffed animal, coloring book to patient or family member [] Provided Communion [] Anointing/Anchor [] Salvation [x] Completed spiritual assessment [] Other: Impact on Illness or Injury [] Angry [] Fearful [] Anxious [] Often cries [] Exhaustion [] Unable to work [] Unable to attend muslim [] Unable to walk/stand [] Unable to read [] Unable to drive [] Unable to eat/drink [] Unable to sleep [] Unable to be with family [] Patient intubated [] Other: Summary Time spent with patient 10 min
[2021-08-24] MEDS: metoclopramide 5 mg/mL SDV 2 mL 10 MG IVP (10:30)
[2021-08-24 11:09] VITALS: BP 94/57; PULSE 84; RESP 16; TEMP 37.2; O2SAT 94
--- NOTE | 2021-08-24 11:55 | P.PN_ITS ---
Subjective Subjective: Interval history: Patient states that she has been having diarrhea for the last 2 weeks which is green spinach in color. She also had 3 episodes of diarrhea overnight. She says he it does seem that it has slowed down from prior but she still having it. She is unsure if she would like to go home today since she does not want to end back in the hospital due to the diarrhea. She was transition to regular diet this morning however. She is tolerating it well. She had Jell-O and milk. She is looking forward to having lunch to see how she feels. Does still complain of mild pain in the right upper quadrant epigastric region but has significantly improved compared to admission. Otherwise denies any chest pain, shortness of breath. Vitals/I&O/Wt Last Vital Signs Temp 98.9 F 08/24/21 11:09 Pulse 84 08/24/21 11:09 Resp 16 08/24/21 11:09 BP 94/57 08/24/21 11:09 Pulse Ox 94 08/24/21 11:09 08/23/21 08/24/21 08/24/21 22:59 06:59 14:59 Intake Total 290 / 3340 1350 / 4690 Balance 290 / 3090 1350 / 4440 Weight last 48 hrs Weight 70.307 kg Weight 70.307 kg Physical Exam Narrative: EXAM NARRATIVE: General: Alert oriented x3, patient seen laying in bed appearing comfortable at this time but slightly anxious. HEENT: Normocephalic, atraumatic, EOMI, breathing room air. Cardio: Regular rate rhythm, normal S1-S2 Respiratory: Good bilateral air entry, no wheezes no rhonchi appreciated GI: Abdomen soft, mildly tender to palpation around epigastric right upper quadrant area, nondistended, bowel sounds normoactive. No rigidity or guarding present. Behavior: Appropriate and cooperative, slightly anxious. Extremities:no edema, no cyanosis Data : 08/24/21 06:18 08/24/21 04:25 Micro: Microbiology 08/23/21 02:40 Urine Culture - Preliminary Urine,Clean Catch A&P Assessment and plan (1) Acute pancreatitis: Status: Acute (2) Urinary tract infection: Status: Acute (3) Gastritis: Status: Acute (4) MONICA (acute kidney injury): Status: Acute Additional A&P Information #Acute pancreatitis #Nausea vomiting secondary to gastritis #Diarrhea x2 weeks #Acute kidney injury #UTI ?She was admitted for intractable nausea and unable to tolerate oral intake. Patient was dehydrated on admission as per admission note. She was started on normal saline 125 cc an hour with potassium. Abdominal pelvis CT showed normal gallbladder no biliary ductal dilatation. No signs of hydronephrosis on CT or clinical pyelonephritis. Urinalysis was abnormal. ?Continue ceftriaxone 1 g IV 24 hours, await urine culture ?Hold leflunomide, resume hydroxychloroquine once able to tolerate p.o. intake. I will restart that today ?Still complaining of diarrhea. Will order stool culture ova parasite screen and bacterial culture ?Creatinine has improved to 1.4 today. 2.2 on admission. We will continue patient on Ringer's lactate at this time ?We will replete potassium orally now that patient is able to tolerate a diet. ?We will plan for discharge tomorrow and continue to monitor patient in the hospital today due to her active diarrhea. #Anemia, acute ?Hemoglobin 13 on admission, hemoglobin 10 today. We will check occult blood test Patient did get IV fluids. Could possibly be dilutional as well. We will repeat labs in a.m. No evidence of any gross rectal bleed at this time. Full code Regular diet, DVT prophylaxis: Lovenox Attestations Medical Necessity Statement*: Anticipate greater than 24-hour stay at this point. Coding Level of Care Code Acute Vacuum Cooker Operator for [facility] Diagnoses Acute pancreatitis K85.90 Urinary tract infection N39.0 Gastritis K29.70 MONICA (acute kidney injury) N17.9
[2021-08-24] MEDS: lactated ringers 1,000 ML 100 ML IV ×2 (12:25→21:32)
[2021-08-24 15:11] VITALS: BP 93/58; PULSE 86; RESP 15; TEMP 36.9; O2SAT 95
[2021-08-24] MEDS: cefTRIAXone 1,000 MG in sodium chloride 0.9% (plus) 50 ML 100 MG IV (15:18)
[2021-08-24 20:00] VITALS: BP 105/68; PULSE 88; RESP 17; TEMP 36.6; O2SAT 95
[2021-08-25] VITALS: BP 101/69; PULSE 85; RESP 18; TEMP 36.8; O2SAT 96
[2021-08-25] MEDS: metoclopramide 5 mg/mL SDV 2 mL 10 MG IVP (02:17)
[2021-08-25 04:00] VITALS: BP 100/65; PULSE 89; RESP 18; TEMP 36.8
[2021-08-25 06:11] LABS: Basophils % 0.6 %; Eosinophils # 0.3 10^3/uL (0.0-0.8); Eosinophils % 4.3 %; Hematocrit 26.6 % (37.0-47.0); Hemoglobin 8.9 g/dL (11.5-15.3); Lymphocytes # 0.8 10^3/uL (0.8-4.8); Lymphocytes % 11.5 %; Mean Corpuscular HGB Conc 33.5 g/dL (30.0-36.0); Mean Corpuscular Hemoglobin 28.3 pg (28.0-34.0); Mean Corpuscular Volume 84.4 fl (81-99); Mean Platelet Volume 10.9 fL (7.4-10.4); Monocytes # 0.7 10^3/uL (0.2-0.9); Monocytes % 9.3 %; Neutrophils # 5.32 10^3/uL (1.8-7.7); Neutrophils % 73.9 %; Nucleated Red Blood Cells % 0 %; Platelet Count 363 10^3/cmm (130-400); Red Blood Count 3.15 10^6/uL (4.1-5.3); Red Cell Distribution Width 14.4 % (12.1-15.1); White Blood Count 7.2 10^3/uL (4.0-10.0)
[2021-08-25] MEDS: enoxaparin 40 mg/0.4 mL Syringe SUBCUT (06:33)
[2021-08-25] MEDS: lactated ringers 1,000 ML 100 ML IV (06:33)
[2021-08-25 07:28] LABS: Anion Gap 16.1 (5-19); Blood Urea Nitrogen 11 mg/dL (6-20); Calcium 7.3 mg/dL (8.5-10.5); Carbon Dioxide 23 mmol/L (22-29); Chloride 102 mmol/L (98-107); Glucose 106 mg/dL (65-115); Magnesium 1.6 mg/dL (1.7-2.3); Osmolality Calculated 286 mOsm/kg (285-295); Potassium 3.1 mmol/L (3.5-5.1); Sodium 138 mmol/L (136-145)
[2021-08-25 07:31] LABS: Creatinine Clr Calc Pharmacy 59.7051
[2021-08-25 07:32] VITALS: BP 103/68; PULSE 82; RESP 16; TEMP 36.6; O2SAT 94
[2021-08-25] MEDS: pantoprazole DR 40 mg Tablet PO (08:00)
--- NOTE | 2021-08-25 09:11 | PM.PN ---
Subjective Subjective: Interval history: Seen this morning. She still reports 3-4 episodes of diarrhea overnight which was green in color. Stool sample has not been collected yet. I discussed with nurse to collect stool sample for occult blood test and stool ova parasite and bacterial PCR. Patient is tolerating a diet now and feels well from abdominal pain aspect has not been nauseous again. He states he is doing well but is very concerned about her diarrhea. Vitals/I&O/Wt Last Vital Signs Temp 97.7 F 08/25/21 12:00 Pulse 82 08/25/21 12:00 Resp 18 08/25/21 12:00 BP 97/66 08/25/21 12:00 Pulse Ox 94 08/25/21 12:00 08/24/21 08/25/21 08/25/21 22:59 06:59 14:59 Intake Total 1879 1140 / 3140 120 / 120 Balance 1879 1140 / 3140 120 / 120 Physical Exam Narrative: EXAM NARRATIVE: General: Alert oriented x3, not in acute distress. Cardio: Regular rate rhythm, normal S1-S2 Respiratory: Good bilateral air entry, no wheezes no rhonchi appreciated GI: Abdomen soft, nontender bowel sounds normoactive. Behavior: Appropriate and cooperative Extremities:no edema Data : 08/25/21 05:13 08/25/21 05:13 Micro: Microbiology 08/23/21 02:40 Urine Culture - Final Urine,Clean Catch A&P Assessment and plan (1) Acute pancreatitis: Status: Acute (2) Urinary tract infection: Status: Acute (3) Gastritis: Status: Acute (4) MONICA (acute kidney injury): Status: Acute Additional A&P Information #Acute pancreatitis - Resolved #Nausea vomiting secondary to gastritis - Resolved #Diarrhea x2 weeks - Active #Acute kidney injury - Resolved #UTI - Ruled out. ?She was admitted for intractable nausea and unable to tolerate oral intake. Patient was dehydrated on admission as per admission note. She was started on normal saline 125 cc an hour with potassium. Abdominal pelvis CT showed normal gallbladder no biliary ductal dilatation. No signs of hydronephrosis on CT or clinical pyelonephritis. Urinalysis was abnormal. ?Urine culture only showed superficial normal naav. I will stop antibiotics at this time. Diarrhea could be also associated to antibiotics. We will stop ceftriaxone. ?Hold leflunomide, continue hydroxychloroquine. ?Still complaining of diarrhea. Sample to be collected for stool culture ova parasite screen and bacterial culture ?Creatinine has improved to 1.1 today. 2.2 on admission. I will stop IV fluids as pt able to tolerate diet. ?Potassium repleted. ?Continue to monitor patient in the hospital today due to her active diarrhea. - Will start flagyl after obtaining stool sample. #Anemia, acute ?Hemoglobin 13 on admission, hemoglobin 8 today. We will check occult blood test. Sample waiting to be collected Patient did get IV fluids. Could possibly be dilutional as well. We will repeat labs in a.m. No evidence of any gross rectal bleed at this time. Check iron studies Full code Regular diet, DVT prophylaxis: Lovenox Attestations Medical Necessity Statement*: Potential DC in AM. Coding Level of Care Code Acute Payroll Administrative Assistant for Bert Smith Diagnoses Acute pancreatitis K85.90 Urinary tract infection N39.0 Gastritis K29.70 MONICA (acute kidney injury) N17.9
[2021-08-25] MEDS: potassium chloride oral liq 20 mEq/15 mL UDC 40 MEQ PO (09:18)
[2021-08-25] MEDS: magnesium sulfate premix 4 GM/100 ML PREMIX IV (09:18)
[2021-08-25] MEDS: potassium chloride oral liq 20 mEq/15 mL UDC PO (09:18)
[2021-08-25 12:00] VITALS: BP 97/66; PULSE 82; RESP 18; TEMP 36.5; O2SAT 94
[2021-08-25 14:01] LABS: Iron 22 ug/dL (37-145); Percent Saturation 19.4 % (20-50); Total Iron Binding Capacity 113 mcg/dl; Unsaturated Iron Binding 91 ug/dL (112-347)
[2021-08-25] MEDS: metroNIDAZOLE 500 MG Tablet PO ×2 (14:07→22:41)
--- NOTE | 2021-08-25 15:53 | PC.NURSE ---
END OF SHIFT SUMMARY PT SHANDRA MEALS WITHOUT DIFFICULTY - HAS COMPLAINED OF DIARRHEA SEVERAL TIMES THROUGHOUT SHIFT - STOOL SENT - STOOL DESCRIPTION SENT TO DR NICHOLSON PER REQUEST - PIID REMAINS INTACT TO RIGHT ARM - WILL CONTINUE TO MONITOR
[2021-08-25 16:00] VITALS: BP 106/68; PULSE 79; RESP 18; TEMP 36.7; O2SAT 94
[2021-08-25] MEDS: hydroxychloroquine 200 mg Tablet PO (16:19)
[2021-08-25 20:00] VITALS: BP 107/71; PULSE 91; RESP 19; TEMP 36.9; O2SAT 93
[2021-08-26] VITALS: BP 93/55; PULSE 78; RESP 18; TEMP 36.8; O2SAT 94
[2021-08-26 04:00] VITALS: BP 96/58; PULSE 84; RESP 17; TEMP 36.9; O2SAT 93
[2021-08-26 06:22] LABS: Basophils % 0.6 %; Eosinophils # 0.3 10^3/uL (0.0-0.8); Eosinophils % 4.5 %; Hemoglobin 8.7 g/dL (11.5-15.3); Lymphocytes # 1.2 10^3/uL (0.8-4.8); Lymphocytes % 19.1 %; Mean Corpuscular HGB Conc 33.5 g/dL (30.0-36.0); Mean Corpuscular Hemoglobin 27.9 pg (28.0-34.0); Mean Corpuscular Volume 83.3 fl (81-99); Mean Platelet Volume 10.1 fL (7.4-10.4); Monocytes # 0.7 10^3/uL (0.2-0.9); Monocytes % 11.3 %; Neutrophils # 3.99 10^3/uL (1.8-7.7); Neutrophils % 64.2 %; Nucleated Red Blood Cells % 0 %; Platelet Count 438 10^3/cmm (130-400); Red Blood Count 3.12 10^6/uL (4.1-5.3); Red Cell Distribution Width 14.4 % (12.1-15.1); White Blood Count 6.2 10^3/uL (4.0-10.0)
[2021-08-26 06:38] LABS: Anion Gap 16.2 (5-19); Blood Urea Nitrogen 10 mg/dL (6-20); Calcium 7.5 mg/dL (8.5-10.5); Carbon Dioxide 22 mmol/L (22-29); Chloride 104 mmol/L (98-107); Glomerular Filtration Rate 56.9 mL/min (90-130); Glucose 108 mg/dL (65-115); Magnesium 2.2 mg/dL (1.7-2.3); Osmolality Calculated 288 mOsm/kg (285-295); Potassium 3.2 mmol/L (3.5-5.1); Sodium 139 mmol/L (136-145)
--- NOTE | 2021-08-26 07:08 | CT_ITS ---
WS: [id number] CT ABDOMEN PELVIS TECHNIQUE: Noncontrast CT of the abdomen and pelvis with coronal and sagittal reformatted images. CLINICAL INFORMATION: r/o retroperitoneal bleed COMPARISON: CT August 23, 2021 DLP: 985.[address] scans at [facility] use at least one of these dose optimization techniques: automated e xposure control; mA and/or kV adjustment per patient size (includes targeted exams where dose is matc hed to clinical indication); or iterative reconstruction. FINDINGS: No evidence of retroperitoneal hematoma. No free fluid in the abdomen or pelvis. Previous described m ild pancreatitis unchanged. Normal noncontrast liver and spleen. Gallbladder is contracted. Normal GE junction. Subsegmental atelectasis in the lung bases. Adrenal glands are normal. No hydronephrosis. A few sigmoid diverticuli. No evidence of acute diverticulitis. A few air-fluid levels in the transve rse colon. Disc space narrowing L4-5. CT/CT abdomen pelvis wo con [id number] IMPRESSION: 1. No evidence for retroperitoneal hematoma. No free fluid in the abdomen or p kevin. 2. Mild acute pancreatitis is unchanged. No drainable fluid collections. 3. No hydronephrosis. 4. Mild ileus in the colon with a few air-fluid levels.
[2021-08-26 07:20] VITALS: BP 114/76; PULSE 81; RESP 17; TEMP 36.6; O2SAT 85
--- NOTE | 2021-08-26 11:00 | P.DS_ITS ---
Discharge Providers Date of Admission: 08/23/21 04:50 Date of Discharge: August 26, 2021 Attending Provider at Admission: Karely Siu MD Attending Provider at Discharge: Doretha Ramon MD Primary Care Provider: Julisa Santiago MD Diagnoses at Discharge Discharge Diagnosis (1) Acute pancreatitis: Status: Acute (2) Urinary tract infection: Status: Acute (3) Gastritis: Status: Acute (4) MONICA (acute kidney injury): Status: Acute Reason for Visit Reason for Visit: N/V Hospital Course Hospital Course HPI as per Dr. Sherron Gurrolaernesto Arriaga is a 56 year old female with past medical history of polyarthralgia, concerning for inflammatory arthritis, currently on treatment with leflunomide and hydroxychloroquine as outpatient, history of COVID-07 May 2021, currently presenting with 1 week of nausea vomiting and diarrhea which has not resolved with conservative measures. She presents today with epigastric pain, intractable nausea vomiting dehydration and MONICA. CT of the abdomen and pe, lvis showed mild acute pancreatitis. Elevated lipase noted. UA positive for nitrates, leukocyte esterase, WBC 80-100. No signs of hydronep hrosis. Course Patient was admitted for acute pancreatitis. She was given IV fluids. Pancreatitis did get better lipase returned to normal. Urinalysis was also abnormal but urine culture did not grow anything besides superficial nava. No signs of hydronephrosis. Incidentally patient was also found to be anemic. FOBT negative. It is possible that patient was dehydrated after nausea vomiting on initial presentation to hospital and hemoglobin is showing up as a higher value. Iron studies were also done. It seems patient might have iron deficiency anemia. She does state that she has a history of anemia and unsure if there was a work-up done but she states that she was not really treated for it. She denied any rectal bleed, melena, hemoptysis or hematemesis. Patient felt in good spirits today. She also had diarrhea before presenting to the hospital for the last 2 weeks. Stool culture was obtained but so far has not resulted. Flagyl was added which has improved her diarrhea significantly. Today patient feels a lot better and would like to go home. She has agreed to follow-up with hematology and her primary care physician and has agreed to get labs rechecked in 2 to 3 days to keep an eye on her hemoglobin. She was told to call her primary care physician for close follow-up. Hemoglobin has been stable around 8.58.7 range. There could be a dilutional aspect as well. We will discharge patient home today. Patient agreeable to the above plan and was explained everything in detail and all questions answered. Physical Exam Narrative: EXAM NARRATIVE: General: Alert oriented x3, not in acute distress. Feels great today. Requesting to go home. Cardio: Regular rate rhythm, normal S1-S2 Respiratory: Good bilateral air entry, no wheezes no rhonchi appreciated GI: Abdomen soft, nontender bowel sounds normoactive. Behavior: Appropriate and cooperative Extremities:no edema Discharge Data Data Completed and Pending: Completed Studies During Hospitalization Category Date Time Status CT abdomen pelvis w con* [id number] Urge nt Cat Scan 08/23/21 02:[address] abdomen pelvis wo con [id number] Urge nt Cat Scan 08/26/21 07:08 Completed Pending at discharge Category Date Time Status Enteric Bacterial Panel by PCR Stat Lab 08/24/21 14:30 Received Enteric Parasite Panel by PCR Stat Lab 08/24/21 14:30 Received Urinalysis Stat Lab 08/26/21 07:08 Uncollected Labs from last 24 hours 08/26/21 08/26/21 08/25/21 04:59 04:59 04:55 WBC 6.2 RBC 3.12 L Hgb 8.7 L Hct 26.0 L MCV 83.3 MCH 27.9 L MCHC 33.5 RDW 14.4 Plt Count 438 H MPV 10.1 Neut % (Auto) 64.2 Lymph % (Auto) 19.1 [place] % (Auto) 11.3 Eos % (Auto) 4.5 Baso % (Auto) 0.6 Neut # (Auto) 3.99 Lymph # (Auto) 1.2 [place] # (Auto) 0.7 Eos # (Auto) 0.3 Baso # (Auto) 0.0 Nucleated RBC % (a uto) 0 Nucleated RBCs # 0.0 Sodium 139 Potassium 3.2 L Chloride 104 Carbon Dioxide 22 Anion Gap 16.2 BUN 10 Creatinine 1.0 H GFR Calculation 56.9 L Glucose 108 Calculated Osmolal ity 288 Calcium 7.5 L Magnesium 2.2 Iron 22 L TIBC 113 % Saturation 19.4 L Unsat Iron Binding 91 L Vitals: Last Vital Signs Temp 97.9 F 08/26/21 07:20 Pulse 81 08/26/21 07:20 Resp 17 08/26/21 07:20 BP 114/76 08/26/21 07:20 Pulse Ox 85 L 08/26/21 07:20 Discharge Plan Discharge Patient Disposition: Home Condition: Stable Prescriptions: Continued hydroxychloroquine 200 mg tablet 200 mg PO BID Qty: 60 RF: 3 prednisone 20 mg tablet See Rx Instructions PO .COMPLEX PRN (Reason: joint pain flare) Qty: 30 RF: 1 diclofenac sodium 1 % gel 2 g topical QID Qty: 100 RF: 2 promethazine 25 mg tablet 25 mg PO QID PRN (Reason: nausea and vomiting) 10 Days Qty: 40 RF: 0 famotidine [Pepcid] 20 mg tablet 20 mg PO BID PRN (Reason: abdominal pain) 10 Days Qty: 20 RF: 0 Flagyl 500 mg tablet 500 mg PO TID 5 Days Qty: 15 RF: 0 Held leflunomide 20 mg tablet 20 mg PO DAILY Qty: 30 RF: 3 Hold Instructions: see pcp diclofenac sodium 75 mg tablet,delayed release (DR/EC) 75 mg PO BID PRN (Reason: PRN for moderate to severe pain ) Qty: 30 RF: 1 Hold Instructions: see pcp Discontinued diphenoxylate-atropine [Lomotil] 2.5-0.025 mg tablet 1 tab PO QID PRN (Reason: diarrhea) 10 Days Qty: 40 RF: 0 Discharge Orders: Discharge Order (Routine); Ordered 08/26/21 Ordered By: Doretha Ramon Other Ambulatory Orders: Basic Metabolic Panel (Routine) Timeframe: 3 Days Facility: [facility] - Location: Lab - Main Lab Ordered By: Doretha Ramon Complete Blood Count w/Auto (Routine) Timeframe: 3 Days Location: Determined by Patient Ordered By: Doretha Ramon Referrals: Arianna Skelton MD [Staff Physician] - 2 weeks (Anemia DR SKELTON WILL CALL WITH APPOINTMENT) Julisa Santiago MD [Primary Care Provider] - 4-7 days (Anemia follow up) Discharge Diet: Advance as tolerated Discharge Activity: Increase activity as tolerated Patient Instructions: Opioid Safety Activity Restrictions/Additional Instructions: Please return to ER if increasing diarrhea or if you develop light headedness, shortness of breath, chest pain, abdominal pain. Please get your lab work done as scheduled. Follow up with primary care physician and manager code for further workup of your anemia. Discharge Attestations Time Spent in Discharge Care*: greater than 30 min Quality Metrics Clinical Quality Measures During this hospital stay, did patient experience: None Coding Level of Care Code Acute [facility] note Diagnoses Acute pancreatitis K85.90 Urinary tract infection N39.0 Gastritis K29.70 MONICA (acute kidney injury) N17.9
[2021-08-26] MEDS: potassium chloride oral liq 20 mEq/15 mL UDC 40 MEQ PO (11:29)
[2021-08-26] MEDS: potassium chloride oral liq 20 mEq/15 mL UDC PO (11:29)
[2021-08-26] MEDS: hydroxychloroquine 200 mg Tablet PO (11:30)
[2021-08-26] MEDS: pantoprazole DR 40 mg Tablet PO (11:30)
[2021-08-26] MEDS: metroNIDAZOLE 500 MG Tablet PO (11:30)
[2021-08-26 11:54] VITALS: BP 114/76; PULSE 81; RESP 17; TEMP 36.6; O2SAT 85
== END 2021-08-26 11:15 | disposition home or self-care (01) | DRG 439 ==
LOC: ER 04:13 → MEDSURG 04:51
PROVIDERS: Internal Medicine; Admitting Provider Student in an Organized Health Care Education/Training Program; Emergency Provider Emergency Medicine; PCP Family Medicine; Visit Provider Internal Medicine
DX: K85.90 Acute pancreatitis without necrosis or infection, unspecified (principal); N39.0 Urinary tract infection, site not specified; N17.9 Acute kidney failure, unspecified; K29.70 Gastritis, unspecified, without bleeding; E86.0 Dehydration; D64.9 Anemia, unspecified; M35.3 Polymyalgia rheumatica; E87.6 Hypokalemia; R19.7 Diarrhea, unspecified; Z86.16 Personal history of COVID-19; Z79.52 Long term (current) use of systemic steroids
CPT/HCPCS: 36415; 74176; 74177; 80048; 80053; 81001; 82274; 83540; 83550; 83690; 83735; 84145; 84478; 85025; 86140; 87086; 87493; 87506; 96365; 96372; 96375; 99285; J0696; J1650; J2405; J2765; J3475; J3480; J7030; Q9967

== ENCOUNTER 2021-08-31 12:37 | Emergency (ER) | payer OTHER, SELFPAY ==
[2021-08-31 12:42] VITALS: BP 123/81; PULSE 89; RESP 18; TEMP 36.4; O2SAT 98; BMI 24.3
[2021-08-31 12:59] VITALS: BP 116/84; PULSE 91; RESP 16; O2SAT 99
--- NOTE | 2021-08-31 13:02 | W.ED.BACK ---
HPI - Back Pain/Injury General: Chief Complaint: Back Pain/Injury Stated Complaint: PAIN IN LEFT SIDE INTO BACK Time Seen by Provider: 08/31/21 12:52 Source: patient Mode of arrival: ambulatory Limitations: no limitations History of Present Illness: HPI Narrative: Patient is a 56-year-old female presents to ED today with a complaint of left-sided flank pain/back pain that began today. 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 Patient was recently discharged from the hospital approximately 5 days ago with diagnoses of UTI (her culture came back normal), gastritis, acute pancreatitis, and MONICA. Patient states she was doing well upon discharge. She has finished all of her medications that she was placed on. She denies nausea vomiting, diarrhea. No urinary symptoms. No fevers. MD elicited complaint: back pain Onset (ago): hour(s) Timing: constant Associated symptoms: Reports abdominal pain; Deny chills, dysuria, fatigue, fever(s), nausea, syncope, urinary urgency or vomiting Review of Systems Const: Denies: fever(s), chills, body aches, fatigue or malaise Card: Denies: chest pain, palpitations, irregular heart rhythm, edema, lightheadedness, syncope or pre-syncope Resp: Denies: dyspnea, productive cough or non-productive cough GI: Reports: abdominal pain; Denies: nausea, vomiting or diarrhea : Reports: flank pain; Denies: difficulty voiding, dysuria, urinary frequency, urinary urgency or urinary hesitancy Musc: Reports: back pain; Denies: neck pain, extremity pain or joint pain Skin/Breast: Denies: rash Neuro: Denies: headache(s), numbness in extremities, weakness in extremities, sensory changes or dizziness PFS ED PFSH: Medical History (Updated 08/31/21 @ 16:10 by ABY Tompkins) COVID-19 04/2021 High risk medication use Immunization counseling Inflammatory arthritis Lumbago with sciatica Polymyalgia rheumatica Surgical History No history of previous surgery Family History Father Cancer Colon cancer Sister Cancer Colon cancer Diabetes Mother Diabetes Rheumatoid arthritis Grandmother CAD (coronary artery disease) Other Psychiatric illness Denies family history of PMR (polymyalgia rheumatica) Lupus Hyperlipidemia Lung disease Hypertension Stroke Social History Smoking and tobacco status: never smoked Alcohol intake: never Lives independently: Yes Household members: family Housing: House Marital status: / History of recent travel: No Physical Exam Const: COMMON NORMALS: no acute distress, patient oriented x3, no limitations and alert GENERAL APPEARANCE: cooperative NUTRITIONAL APPEARANCE: overweight ORIENTATION/CONSCIOUSNESS: Yes awake, Yes oriented to person, Yes oriented to place and Yes oriented to time HENMT: COMMON NORMALS: normocephalic and atraumatic HEAD & SCALP: normocephalic and atraumatic Resp: COMMON NORMALS: normal respiratory effort and clear to auscultation bilaterally AUSCULTATION: clear to auscultation bilaterally Cardio: COMMON NORMALS: regular rate and regular rhythm RATE: regular rate RHYTHM: regular rhythm GI: COMMON NORMALS: Normal to inspection, nondistended, normoactive bowel sounds present, Soft to palpation, No hepatosplenomegaly present and no masses PALPATION: Yes Soft to palpation, Yes Tenderness to palpation present (GI) (mild epigastic, LUQ) and Yes No hepatosplenomegaly present : COMMON NORMALS: Yes no CVA tenderness (TTP below L CVA) BLADDER/KIDNEY EXAM: Yes no CVA tenderness (TTP below L CVA) Back/Pelvis: COMMON NORMALS: no CVA tenderness (TTP below L CVA) BACK IMAGE (FEMALE): 1. TTP Neuro: COMMON NORMALS: patient oriented x3 SENSORIUM/ORIENTATION: Yes alert, Yes oriented to person, Yes oriented to place and Yes oriented to time Skin: COMMON NORMALS: no rashes or lesions noted GENERAL SKIN EXAM: no rashes or lesions noted Course Vital Signs: Vital signs: Vital Signs Temperature 97.5 F L 08/31/21 12:42 Pulse Rate 91 08/31/21 12:59 Respiratory Rate 16 08/31/21 15:47 Blood Pressure 116/84 08/31/21 12:59 Pulse Oximetry 98 08/31/21 14:40 MDM - Back Pain/Injury MDM Narrative: Medical decision making narrative: Patient clinically appears well. Her vital signs are normal. She is mildly anemic however her hemoglobin is higher than it was when she was in the hospital. Chemistry panel reveals some mild elevations to her LFTs. Patient is not having any right sided or right upper quadrant pain. Her lipase which was elevated during her hospitalization is back to normal at 56. UA slightly suspicious for infection however patient denies any urinary symptoms. She had a negative UA culture while she was in the hospital. She just finished a course of Cipro/Flagyl which should have covered for UTI anyway. Urine culture pending. CT scan essentially normal. At this time I would recommend conservative therapies at home with close observation of symptoms with strict return to ED precautions. Patient states she has an appointment with PCP in 2 days. Lab Data: Labs: Lab Results 08/31/21 08/31/21 08/31/21 13:30 13:52 13:52 WBC 6.3 10^3/uL 10^3/ uL (4.0-10.0) RBC 3.80 10^6/uL L 10 ^6/uL (4.1-5.3) Hgb 10.6 g/dL L g/dL (11.5-15.3) Hct 32.8 % L % (37.0-47.0) MCV 86.3 fl fl (81-99) MCH 27.9 pg L pg (28.0-34.0) MCHC 32.3 g/dL g/dL (30.0-36.0) RDW 15.8 % H % (12.1-15.1) Plt Count 671 10^3/cmm H 10 ^3/cmm (130-400) MPV 9.6 fL fL (7.4-10.4) Neut % (Auto) 66.7 % % Lymph % (Auto) 19.7 % % [place] % (Auto) 9.6 % % Eos % (Auto) 2.7 % % Baso % (Auto) 1.1 % % Neut # (Auto) 4.23 10^3/uL 10^3 /uL (1.8-7.7) Lymph # (Auto) 1.3 10^3/uL 10^3/ uL (0.8-4.8) [place] # (Auto) 0.6 10^3/uL 10^3/ uL (0.2-0.9) Eos # (Auto) 0.2 10^3/uL 10^3/ uL (0.0-0.8) Baso # (Auto) 0.1 10^3/uL 10^3/ uL (0.0-0.1) Nucleated RBC % (a uto) 0 % % Nucleated RBCs # 0.0 /100WBC /100W BC Sodium 134 mmol/L L mmol /L (136-145) Potassium 4.0 mmol/L mmol/L (3.5-5.1) Chloride 102 mmol/L mmol/L (98-107) Carbon Dioxide 23 mmol/L mmol/L (22-29) Anion Gap 13.0 (5-19) BUN 6 mg/dL mg/dL (6-20) Creatinine 0.9 mg/dL mg/dL (0.5-0.9) GFR Calculation 64.3 mL/min L mL/ min (90-130) Glucose 93 mg/dL mg/dL (65-115) Calculated Osmolal ity 275 mOsm/kg L mOs m/kg (285-295) Calcium 8.2 mg/dL L mg/dL (8.5-10.5) Total Bilirubin 0.2 mg/dL mg/dL (0.15-1.2) AST 38 U/L H U/L (0-32) ALT 51 U/L H U/L (0-33) Alkaline Phosphata se 112 IU/L H IU/L (35-105) Total Protein 6.7 g/dL g/dL (6.6-8.7) Albumin 3.5 g/dL g/dL (3.5-5.2) Globulin 3.2 g/dL g/dL (1.3-4.6) Lipase 56 U/L U/L (13-60) Urine Color Dark yellow (Yellow) Urine Appearance Hazy A (CLEAR) Urine pH 5 (5-7) Ur Specific Gravit y 1.025 (1.005-1.030) Urine Protein Trace (Negative) Urine Glucose (UA) Trace H (Normal) Urine Ketones 1+ H (Negative) Urine Blood Neg (Negative) Urine Nitrate Negative (Negative) Urine Bilirubin Neg (Negative) Urine Urobilinogen Norm mg/dL mg/dL (Negative) Ur Leukocyte Gale ase 1+ H (Negative) Urine RBC 15-25 /hpf H /hpf (0-2) Urine WBC 5-10 /hpf H /hpf (0-5) Ur Squamous Epith Cells 5-10 /hpf H /hpf (0-5) Amorphous Sediment Not Reportable Urine Bacteria 1+ /hpf H /hpf (NONE) Urine Mucus 1+ /hpf /hpf Imaging Data^: CT Abd/Pel: Radiologist's impression: [id number] [place], [place] [address]DM Scan ReportSigned Patient: Jana Arriaga AUnit #: [id number]: [id number]#:[id number]/Sex: 56 / FADM Date: 08/31/21Loc: ERRoom/Bed:Attending Dr: Ordering Provider/Ordering MD: Carol Klein Date of Service: 08/31/21 Procedure(s): CT abdomen pelvis w con* [id number] Accession Number(s): [id number] Report Number: [id number] WS: [id number] CT ABDOMEN PELVIS TECHNIQUE: Contrast-enhanced CT of the abdomen and pelvis with coronal and sagittal reformatted images. CLINICAL INFORMATION: L back, upper abdominal pain COMPARISON: None. DLP: 1243.[address] [facility] use at least one of these dose optimization techniques: automated exposure control; mA and/or kV adjustment per patient size (includes targeted exams where dose is matched to clinical indication); or iterative reconstruction. FINDINGS: Diffuse fatty infiltration of the liver. Previously described pancreatitis appears improved and nearly resolved. No pseudocyst or fluid. Normal portal vein. Normal spleen. Normal GE junction. Subsegmental atelectasis left lower lobe. Adrenal glands are normal. Normal renal parenchymal enhancement. No hydronephrosis. Normal pancreatic parenchymal enhancement. Normal gallbladder. Mild prominence of the common bile duct appears unchanged. Minimal intrahepatic biliary ductal dilatation is unchanged. Normal sigmoid colon. No evidence of high-grade small or large bowel obstruction. Tiny fat-containing umbilical hernia. Normal caliber abdominal aorta. Disc space narrowing L4-L5 and L5-S1. CT/CT abdomen pelvis w con* [id number] IMPRESSION: 1. Diffuse fatty infiltration of the liver. 2. Previously described mild pancreatitis appears improved and nearly resolved. No pseudocyst. Recommend correlation with pancreatic function studies. 3. Normal renal parenchymal enhancement. No hydronephrosis. 4. A few air-fluid levels in the transverse colon. No evidence of high-grade obstruction. 5. No other significant findings. Dictated By:Daniel Monson MDSigned By:Daniel Monson MDSigned Date/Time:08/31/21 1547DD/ 1539 Discharge Plan Discharge Patient Disposition: Home Clinical Impression: Acute left-sided back pain Qualifiers: Back pain location: thoracic back pain Qualified Code(s): M54.6 - Pain in thoracic spine Condition: Stable Prescriptions: No Action hydroxychloroquine 200 mg tablet 200 mg PO BID Qty: 60 RF: 3 prednisone 20 mg tablet See Rx Instructions PO .COMPLEX PRN (Reason: joint pain flare) Qty: 30 RF: 1 diclofenac sodium 1 % gel 2 g topical QID Qty: 100 RF: 2 leflunomide 20 mg tablet 20 mg PO DAILY Qty: 30 RF: 3 Hold Instructions: see pcp diclofenac sodium 75 mg tablet,delayed release (DR/EC) 75 mg PO BID PRN (Reason: PRN for moderate to severe pain ) Qty: 30 RF: 1 Hold Instructions: see pcp promethazine 25 mg tablet 25 mg PO QID PRN (Reason: nausea and vomiting) 10 Days Qty: 40 RF: 0 Flagyl 500 mg tablet 500 mg PO TID 5 Days Qty: 15 RF: 0 Discharge Orders: Discharge ED (Routine); Ordered 08/31/21 Ordered By: Carol Klein Referrals: Julisa Santiago MD [Primary Care Provider] - Activity Restrictions/Additional Instructions: As we discussed please follow-up with your primary care provider at your scheduled appointment on Tuesday. You need to return to the emergency department for worsening or uncontrollable pain, repetitive episodes of vomiting, fevers, or any other concerns you may have. I hope you begin to feel better soon. Coding Level of Care Code ED Director Of Labor And Delivery for Bert Smith Exam Detailed
[2021-08-31 14:01] LABS: Basophils # 0.1 10^3/uL (0.0-0.1); Basophils % 1.1 %; Eosinophils # 0.2 10^3/uL (0.0-0.8); Eosinophils % 2.7 %; Hematocrit 32.8 % (37.0-47.0); Hemoglobin 10.6 g/dL (11.5-15.3); Lymphocytes # 1.3 10^3/uL (0.8-4.8); Lymphocytes % 19.7 %; Mean Corpuscular HGB Conc 32.3 g/dL (30.0-36.0); Mean Corpuscular Hemoglobin 27.9 pg (28.0-34.0); Mean Corpuscular Volume 86.3 fl (81-99); Mean Platelet Volume 9.6 fL (7.4-10.4); Monocytes # 0.6 10^3/uL (0.2-0.9); Monocytes % 9.6 %; Neutrophils # 4.23 10^3/uL (1.8-7.7); Neutrophils % 66.7 %; Nucleated Red Blood Cells % 0 %; Platelet Count 671 10^3/cmm (130-400); Red Cell Distribution Width 15.8 % (12.1-15.1); White Blood Count 6.3 10^3/uL (4.0-10.0)
[2021-08-31 14:21] LABS: Glucose Urine UA Trace (Normal); Ketones Urine 1+ (Negative); Protein Urine Trace (Negative); Specific Gravity, Urine 1.025 (1.005-1.030); Urine Appearance Hazy (CLEAR); Urine Color Dark Yellow (Yellow); pH Urine 5 (5-7)
[2021-08-31 14:22] LABS: Add Urine Microscopic? YES; Bilirubin Urine Neg (Negative); Blood Urine Neg (Negative); Leukocyte Esterase Urine 1+ (Negative); Nitrate Urine Negative (Negative); RBC Urine 15-25 /hpf (0-2); Urobilinogen Urine Norm (Negative)
[2021-08-31 14:23] LABS: Add Urine Culture? Yes; Bacteria Urine 1+ /hpf; Mucus Urine 1+ /hpf
[2021-08-31 14:30] LABS: Alanine Aminotransferase 51 U/L (0-33); Albumin Level 3.5 g/dL (3.5-5.2); Alkaline Phosphatase 112 IU/L (35-105); Aspartate Amino Transferase 38 U/L (0-32); Blood Urea Nitrogen 6 mg/dL (6-20); Calcium 8.2 mg/dL (8.5-10.5); Carbon Dioxide 23 mmol/L (22-29); Chloride 102 mmol/L (98-107); Globulin 3.2 g/dL (1.3-4.6); Glomerular Filtration Rate 64.3 mL/min (90-130); Glucose 93 mg/dL (65-115); Lipase 56 U/L (13-60); Osmolality Calculated 275 mOsm/kg (285-295); Sodium 134 mmol/L (136-145); Total Bilirubin 0.2 mg/dL (0.15-1.2); Total Protein 6.7 g/dL (6.6-8.7)
--- NOTE | 2021-08-31 14:34 | CT_ITS ---
WS: [id number] CT ABDOMEN PELVIS TECHNIQUE: Contrast-enhanced CT of the abdomen and pelvis with coronal and sagittal reformatted image s. CLINICAL INFORMATION: L back, upper abdominal pain COMPARISON: None. DLP: 1243.[address] scans at [facility] use at least one of these dose optimization techniques: automated e xposure control; mA and/or kV adjustment per patient size (includes targeted exams where dose is matc hed to clinical indication); or iterative reconstruction. FINDINGS: Diffuse fatty infiltration of the liver. Previously described pancreatitis appears improved and nearl y resolved. No pseudocyst or fluid. Normal portal vein. Normal spleen. Normal GE junction. Subsegment al atelectasis left lower lobe. Adrenal glands are normal. Normal renal parenchymal enhancement. No h ydronephrosis. Normal pancreatic parenchymal enhancement. Normal gallbladder. Mild prominence of the common bile duct appears unchanged. Minimal intrahepatic biliary ductal dilatation is unchanged. Normal sigmoid colon. No evidence of high-grade small or large bowel obstruction. Tiny fat-containing umbilical hernia. Normal caliber abdominal aorta. Disc space narrowing L4-L5 and L5-S1. CT/CT abdomen pelvis w con* [id number] IMPRESSION: 1. Diffuse fatty infiltration of the liver. 2. Previously described mild pancreatitis appears improved and nearly resolved . No pseudocyst. Recommend correlation with pancreatic function studies. 3. Normal renal parenchymal enhancement. No hydronephrosis. 4. A few air-fluid levels in the transverse colon. No evidence of high-grade o bstruction. 5. No other significant findings.
[2021-08-31] MEDS: ondansetron 2 mg/ML SDV 2 mL 4 MG IVP (14:36)
[2021-08-31 14:40] VITALS: RESP 18; O2SAT 98
[2021-08-31] MEDS: morphine 4 mg/mL SDV 1 mL IVP (14:40)
[2021-08-31] MEDS: iohexol 300 mg/mL 100 mL Btl IV (15:19)
[2021-08-31 15:47] VITALS: RESP 16
[2021-08-31] MEDS: morphine 4 mg/mL SDV 1 mL 2 MG IVP (15:47)
== END 2021-08-31 16:34 | disposition home or self-care (01) ==
PROVIDERS: Emergency Provider Physician Assistant; PCP Family Medicine
DX: M54.6 Pain in thoracic spine (principal)
CPT/HCPCS: 74177; 80053; 81001; 83690; 85025; 87086; 96374; 96375; 96376; 99284; J2270; J2405; Q9967

== ENCOUNTER → 2021-09-02 14:43 | Outpatient (BNVA) | payer OTHER, SELFPAY | PROVIDERS: PCP Family Medicine; Visit Provider Family Medicine | DX: K85.90 Acute pancreatitis without necrosis or infection, unspecified (principal); D64.9 Anemia, unspecified | CPT/HCPCS: 80053; 83690; 85025 ==

== ENCOUNTER → 2021-12-15 09:30 | Outpatient (BNVA) | payer OTHER, SELFPAY | PROVIDERS: PCP Family Medicine; Visit Provider Family Medicine | DX: D64.9 Anemia, unspecified (principal); R73.9 Hyperglycemia, unspecified | CPT/HCPCS: 80053; 83036; 83540; 85025 ==

== ENCOUNTER → 2022-02-24 10:20 | Outpatient (BNVA) | payer OTHER, SELFPAY | PROVIDERS: PCP Electrodiagnostic Medicine; Visit Provider Internal Medicine Rheumatology | DX: M35.3 Polymyalgia rheumatica (principal); M06.041 Rheumatoid arthritis without rheumatoid factor, right hand; M06.042 Rheumatoid arthritis without rheumatoid factor, left hand; M47.896 Other spondylosis, lumbar region; M47.897 Other spondylosis, lumbosacral region; M47.898 Other spondylosis, sacral and sacrococcygeal region; Z79.899 Other long term (current) drug therapy | CPT/HCPCS: 72040; 72100; 72202 ==

== ENCOUNTER → 2022-03-18 08:21 | Outpatient (BNVA) | payer OTHER, SELFPAY | PROVIDERS: PCP Electrodiagnostic Medicine; Visit Provider Electrodiagnostic Medicine | DX: R73.9 Hyperglycemia, unspecified (principal) | CPT/HCPCS: 80048; 83036 ==

== ENCOUNTER → 2022-06-07 14:37 | Outpatient (BNVA) | payer OTHER, SELFPAY | PROVIDERS: PCP Electrodiagnostic Medicine; Visit Provider Internal Medicine Rheumatology | DX: M06.041 Rheumatoid arthritis without rheumatoid factor, right hand (principal); M06.042 Rheumatoid arthritis without rheumatoid factor, left hand; Z79.899 Other long term (current) drug therapy; Z71.89 Other specified counseling; M17.0 Bilateral primary osteoarthritis of knee | CPT/HCPCS: 80076; 82565; 85025; 86140 ==

== ENCOUNTER 2022-09-29 21:14 | Emergency (ER) | payer OTHER, SELFPAY ==
[2022-09-29 22:35] LABS: Basophils % 0.6 %; Hematocrit 43.7 % (37.0-47.0); Hemoglobin 14.5 g/dL (11.5-15.3); Lymphocytes # 0.9 10^3/uL (0.8-4.8); Lymphocytes % 17.4 %; Mean Corpuscular HGB Conc 33.2 g/dL (30.0-36.0); Mean Corpuscular Hemoglobin 30.5 pg (28.0-34.0); Mean Platelet Volume 10.8 fL (7.4-10.4); Monocytes # 0.5 10^3/uL (0.2-0.9); Neutrophils # 3.66 10^3/uL (1.8-7.7); Neutrophils % 71.6 %; Nucleated Red Blood Cells % 0 %; Platelet Count 396 10^3/cmm (130-400); Red Blood Count 4.75 10^6/uL (4.1-5.3); Red Cell Distribution Width 13.6 % (12.1-15.1); White Blood Count 5.1 10^3/uL (4.0-10.0)
[2022-09-29 22:55] VITALS: BP 120/81; PULSE 77; RESP 18; TEMP 36.6; O2SAT 98
[2022-09-29 23:11] LABS: Alanine Aminotransferase 13 U/L (0-33); Albumin Level 4.4 g/dL (3.5-5.2); Alkaline Phosphatase 83 U/L (35-105); Anion Gap 17.4 (5-19); Aspartate Amino Transferase 12 U/L (0-32); Blood Urea Nitrogen 17 mg/dL (6-20); Calcium 9.3 mg/dL (8.5-10.5); Carbon Dioxide 26 mmol/L (22-29); Chloride 99 mmol/L (98-107); Globulin 3.8 g/dL (1.3-4.6); Glomerular Filtration Rate 50.8 mL/min (90-130); Glucose 139 mg/dL (65-115); Osmolality Calculated 292 mOsm/kg (285-295); Potassium 3.4 mmol/L (3.5-5.1); Sodium 139 mmol/L (136-145); Total Bilirubin 0.3 mg/dL (0.15-1.2); Total Protein 8.2 g/dL (6.6-8.7)
--- NOTE | 2022-09-29 23:54 | W.ED.NAVMDI ---
HPI - Nausea/Vomiting/Diarrhea General: Chief complaint: Nausea/Vomiting/Diarrhea Stated complaint: diarrhea x 2 days Time Seen by Provider: 09/29/22 23:52 Source: patient Mode of arrival: ambulatory Limitations: no limitations History of Present Illness: Patient is a 57-year-old female who presents to ED today with complaints of nausea, vomiting, diarrhea, and upper abdominal soreness . Patient states she started with diarrhea approximately 48 hours ago and has had a total of approximately 12 watery stools. She states today she began feeling nauseous and had one episode of vomiting. She has not noticed any blood in her stool or emesis. She is not running fevers. He is concerned her upper abdominal soreness could be secondary to pancreatitis as she does have a history of this. Denies poor food exposures. Denies sick contacts. MD elicited complaint: nausea, vomiting, diarrhea and abdominal pain Pertinent past history: pacreatitis Onset (ago): day(s) Description of diarrhea: watery Associated nausea: Yes Associated abdominal pain: Yes Location of pain: Epigastric Severity: mild Quality: aching Exacerbating factors: eating Relieving factors: none Associated symtoms: Reports nausea; Denies chest pain, dizziness, dysuria, fatigue, headache(s) or malaise Treatment prior to arrival: other (zofran without relief) Review of Systems Const: Denies: fever(s), chills, body aches, fatigue or malaise Card: Denies: chest pain Resp: Denies: dyspnea GI: Reports: abdominal pain, nausea, vomiting and diarrhea; Denies: hematemesis, rectal pain, hematochezia, melena, mucus in stool, white/light colored stool or steatorrhea : Denies: flank pain or dysuria Musc: Denies: back pain Skin/Breast: Denies: rash Neuro: Denies: headache(s) or dizziness PFS ED PFSH: Medical History COVID-19 04/2021 High risk medication use Immunization counseling Inflammatory arthritis Lumbago with sciatica Osteoarthritis of knees, bilateral Polymyalgia rheumatica Seronegative rheumatoid arthritis of both hands Surgical History No history of previous surgery Family History Father Cancer Colon cancer Sister Cancer Colon cancer Diabetes Mother Diabetes Rheumatoid arthritis Grandmother CAD (coronary artery disease) Other Psychiatric illness Denies family history of PMR (polymyalgia rheumatica) Lupus Hyperlipidemia Lung disease Hypertension Stroke Social History Smoking and tobacco status: never smoked Alcohol intake: never Lives independently: Yes Household members: family Housing: House Marital status: / History of recent travel: No Physical Exam Const: COMMON NORMALS: no acute distress, patient oriented x3, no limitations, alert and well nourished GENERAL APPEARANCE: cooperative ORIENTATION/CONSCIOUSNESS: Yes awake, Yes oriented to person, Yes oriented to place and Yes oriented to time HENMT: COMMON NORMALS: normocephalic and atraumatic HEAD & SCALP: normal to inspection, normocephalic and atraumatic Resp: COMMON NORMALS: normal respiratory effort and clear to auscultation bilaterally AUSCULTATION: clear to auscultation bilaterally Cardio: COMMON NORMALS: regular rate and regular rhythm RATE: regular rate RHYTHM: regular rhythm GI: COMMON NORMALS: Normal to inspection, nondistended, normoactive bowel sounds present, Soft to palpation, No hepatosplenomegaly present and no masses INSPECTION: Yes normal to inspection AUSCULTATION: Yes normoactive bowel sounds PALPATION: Yes Soft to palpation, Yes Tenderness to palpation present (GI) (epigastric ), No Guarding due to palpation present (GI), No Rigid due to palpation and Yes No hepatosplenomegaly present : COMMON NORMALS: Yes no CVA tenderness BLADDER/KIDNEY EXAM: Yes no CVA tenderness Back/Pelvis: COMMON NORMALS: no CVA tenderness Extremity: COMMON NORMALS: normal to inspection Neuro: ESTHELA COMA SCALE: document GCS findings Esthela coma scale eye opening: Spontaneous [place] coma scale verbal response: Orientated Esthela coma scale motor response: Obey commands [place] coma scale total score: 15 COMMON NORMALS: patient oriented x3, moves all extremities, no focal motor deficits, no sensory deficits noted and gait normal SENSORIUM/ORIENTATION: Yes alert, Yes oriented to person, Yes oriented to place and Yes oriented to time Skin: COMMON NORMALS: no rashes or lesions noted GENERAL SKIN EXAM: no rashes or lesions noted Course Vital Signs: Vital signs: Vital Signs Temperature 98 F 09/29/22 22:55 Pulse Rate 77 09/29/22 22:55 Respiratory Rate 18 09/29/22 22:55 Blood Pressure 120/81 09/29/22 22:55 Pulse Oximetry 98 09/29/22 22:55 Oxygen Delivery Me thod 09/29/22 22:55 MDM - Nausea/Vomiting/Diarrhea Medical Decision Making Patient clinically appears in no acute distress. She has not had any episodes of vomiting or diarrhea while here. Her vital signs are stable. She has a normal white count. Chemistry is overall fairly unremarkable. She is mildly hypokalemic at 3.4. She was given oral potassium supplementation here. Lipase is scantly elevated at 72. Recommend bland liquid diet over the next 24 to 48 hours and advance as tolerated. Discussed conservative care at home. Most likely patient has a viral gastroenteritis. Discussed how these are usually self-limited. Return to ED precautions given. Lab Data I reviewed the patient's lab results. 09/29/22 21:53 09/29/22 21:53 Laboratory Results WBC 5.1 10^3/uL (4.0-10.0) 09/29/22 21:53 RBC 4.75 10^6/uL (4.1-5.3) 09/29/22 21:53 Hgb 14.5 g/dL (11.5-15.3) 09/29/22 21:53 Hct 43.7 % (37.0-47.0) 09/29/22 21:53 MCV 92.0 fl (81-99) 09/29/22 21:53 MCH 30.5 pg (28.0-34.0) 09/29/22 21:53 MCHC 33.2 g/dL (30.0-36.0) 09/29/22 21:53 RDW 13.6 % (12.1-15.1) 09/29/22 21:53 Plt Count 396 10^3/cmm (130-400) 09/29/22 21:53 MPV 10.8 fL (7.4-10.4) H 09/29/22 21:53 Neut % (Auto) 71.6 % 09/29/22 21:53 Lymph % (Auto) 17.4 % 09/29/22 21:53 Crisp % (Auto) 10.0 % 09/29/22 21:53 Eos % (Auto) 0.0 % 09/29/22 21:53 Baso % (Auto) 0.6 % 09/29/22 21:53 Neut # (Auto) 3.66 10^3/uL (1.8-7.7) 09/29/22 21:53 Lymph # (Auto) 0.9 10^3/uL (0.8-4.8) 09/29/22 21:53 Crisp # (Auto) 0.5 10^3/uL (0.2-0.9) 09/29/22 21:53 Eos # (Auto) 0.0 10^3/uL (0.0-0.8) 09/29/22 21:53 Baso # (Auto) 0.0 10^3/uL (0.0-0.1) 09/29/22 21:53 Nucleated RBC % (auto) 0 % 09/29/22 21:53 Nucleated RBCs # 0.0 /100WBC 09/29/22 21:53 Sodium 139 mmol/L (136-145) 09/29/22 21:53 Potassium 3.4 mmol/L (3.5-5.1) L 09/29/22 21:53 Chloride 99 mmol/L (98-107) 09/29/22 21:53 Carbon Dioxide 26 mmol/L (22-29) 09/29/22 21:53 Anion Gap 17.4 (5-19) 09/29/22 21:53 BUN 17 mg/dL (6-20) 09/29/22 21:53 Creatinine 1.1 mg/dL (0.5-0.9) H 09/29/22 21:53 GFR Calculation 50.8 mL/min (90-130) L 09/29/22 21:53 Glucose 139 mg/dL (65-115) H 09/29/22 21:53 Calculated Osmolality 292 mOsm/kg (285-295) 09/29/22 21:53 Calcium 9.3 mg/dL (8.5-10.5) 09/29/22 21:53 Total Bilirubin 0.3 mg/dL (0.15-1.2) 09/29/22 21:53 AST 12 U/L (0-32) 09/29/22 21:53 ALT 13 U/L (0-33) 09/29/22 21:53 Alkaline Phosphatase 83 U/L (35-105) 09/29/22 21:53 Total Protein 8.2 g/dL (6.6-8.7) 09/29/22 21:53 Albumin 4.4 g/dL (3.5-5.2) 09/29/22 21:53 Globulin 3.8 g/dL (1.3-4.6) 09/29/22 21:53 Lipase 72 U/L (13-60) H 09/30/22 00:00 Discharge Plan Discharge Patient Disposition: Home Clinical Impression: Gastroenteritis Condition: Stable Prescriptions: No Action diclofenac sodium 75 mg tablet,delayed release (DR/EC) 75 mg PO BID PRN (Reason: PRN for moderate to severe pain ) Qty: 30 1RF Hold Instructions: see pcp diclofenac sodium 1 % gel 2 g topical QID Qty: 100 2RF Rx Instructions: apply to affected area as needed hydroxychloroquine 200 mg tablet 200 mg PO BID Qty: 60 3RF leflunomide 20 mg tablet 20 mg PO DAILY Qty: 30 3RF duloxetine [Cymbalta] 60 mg capsule,delayed release(DR/EC) 60 mg PO DAILY Qty: 30 3RF gabapentin 300 mg capsule See Rx Instructions PO TID Qty: 120 3RF Rx Instructions: take 300mg in the AM, 300mg in the lori and 600mg at bedtime prednisone 5 mg tablet 5 mg PO DAILY Qty: 90 1RF prednisone 20 mg tablet See Rx Instructions PO .COMPLEX PRN (Reason: joint pain flare) Qty: 30 1RF Rx Instructions: take 1 tab daily for 3-7 days as needed for arthritis flare PO PRN; tramadol 50 mg tablet 50 mg PO TID PRN (Reason: pain) Qty: 60 0RF folic acid 1 mg tablet 1 mg PO DAILY Qty: 90 1RF Discharge Orders: Discharge ED (Routine); Ordered 09/30/22 Ordered By: Carol Klein Referrals: Uriel Lopez DO [Primary Care Provider] - Patient Instructions: Gastroenteritis (DC) Coding Level of Care Code ED [employer] Developer for Chg Fwd Exam Comprehensive
[2022-09-30] MEDS: potassium chloride ER 20 mEq Tablet 40 MEQ PO (00:14)
[2022-09-30 00:16] LABS: Lipase 72 U/L (13-60)
[2022-09-30] MEDS: promethazine 25 mg/mL SDV 1 mL 50 MG IM (01:19)
== END 2022-09-30 01:24 | disposition home or self-care (01) ==
PROVIDERS: Emergency Provider Physician Assistant; PCP Electrodiagnostic Medicine
DX: K52.9 Noninfective gastroenteritis and colitis, unspecified (principal)
CPT/HCPCS: 36415; 80053; 83690; 85025; 96372; 99284; J2550

== ENCOUNTER 2022-11-15 10:45 | Emergency (ER) | payer OTHER, SELFPAY ==
[2022-11-15 11:03] VITALS: BP 130/89; PULSE 85; RESP 16; TEMP 36.6; O2SAT 96; BMI 25.9
--- NOTE | 2022-11-15 11:29 | W.ED.BACK ---
HPI - Back Pain/Injury General: Chief Complaint: Back Pain/Injury Stated Complaint: Pain in neck and back Source: patient Mode of arrival: ambulatory Limitations: no limitations History of Present Illness: Patient is a 57-year-old female presents to ED today with a complaint of diffuse neck and back pain radiating across her back and into her hips. Patient tells me that she will have flares similar to this every few months. She states she has seen her primary care provider as well as her electronic news gathering editor for the symptoms. She states she was told it was secondary to fibromyalgia and her polymyalgia rheumatica. Patient had x-rays of the entire spine and SI joints performed by rheumatology for evaluation last year. MD elicited complaint: back pain Pertinent past history: prior back pain Onset (ago): day(s) Timing: constant Severity: moderate Similar Symptoms Previously: Yes Quality: burning Location: lumbar spine and thoracic spine Exacerbating factors: none Relieving factors: none Associated symptoms: Reports no associated symptoms; Deny abdominal pain, chills, difficulty walking, fatigue or fever(s) Work related injury: No Review of Systems Const: Denies: fever(s), chills, body aches, fatigue or malaise Card: Denies: chest pain Resp: Denies: dyspnea GI: Denies: abdominal pain Musc: Reports: neck pain and back pain; Denies: joint pain, joint swelling, joint redness or joint warmth Neuro: Denies: weakness in extremities, sensory changes or difficulty walking PFS ED PFSH: Medical History COVID-19 04/2021 High risk medication use Immunization counseling Inflammatory arthritis Lumbago with sciatica Osteoarthritis of knees, bilateral Polymyalgia rheumatica Seronegative rheumatoid arthritis of both hands Surgical History No history of previous surgery Family History Father Cancer Colon cancer Sister Cancer Colon cancer Diabetes Mother Diabetes Rheumatoid arthritis Grandmother CAD (coronary artery disease) Other Psychiatric illness Denies family history of PMR (polymyalgia rheumatica) Lupus Hyperlipidemia Lung disease Hypertension Stroke Social History Smoking and tobacco status: never smoked Alcohol intake: never Lives independently: Yes Household members: family Housing: House Marital status: / Physical Exam Const: COMMON NORMALS: no acute distress, average body habitus, patient oriented x3, no limitations, healthy appearing, alert and well nourished GENERAL APPEARANCE: cooperative ORIENTATION/CONSCIOUSNESS: Yes awake, Yes oriented to person, Yes oriented to place and Yes oriented to time HENMT: COMMON NORMALS: normocephalic and atraumatic HEAD & SCALP: normal to inspection, normocephalic and atraumatic Neck/C-Spine: COMMON NORMALS: full ROM GENERAL: Yes normal visual inspection, No anterior neck swelling and No submandibular swelling CERVICAL SPINE: Yes cervical ROM normal, Yes pain with cervical ROM, Yes Cervical spine tenderness, No step off deformity, Yes Paracervical muscle tenderness and Yes Trapezius muscle tenderness OTHER: tenderness throughout cervical spine and back Back/Pelvis: THORACIC SPINE/UPPER BACK: Yes normal to inspection, Yes pain with ROM, Yes thoracic spinal tenderness, Yes paraspinal muscle tenderness and No paraspinal muscle spasm LUMBAR SPINE/LOWER BACK: Yes normal to inspection, Yes pain with ROM, Yes lumbar spinal tenderness, Yes paraspinal muscle tenderness, No paraspinal muscle spasm and Yes straight leg raise negative bilaterally PELVIS: Yes buttocks normal SACROILIAC JOINTS: Yes SI joint(s) abnormal SI joint details: tender to palpation SACRUM: no tenderness COCCYX: no tenderness Extremity: COMMON NORMALS: normal to inspection, full ROM, capillary refill normal, no joint enlargement, no clubbing, cyanosis or edema, no calf tenderness and no pedal edema GENERAL: Yes normal exam except as noted Neuro: COMMON NORMALS: patient oriented x3, moves all extremities, no focal motor deficits, no sensory deficits noted and gait normal SENSORIUM/ORIENTATION: Yes alert, Yes oriented to person, Yes oriented to place and Yes oriented to time Course Vital Signs: Vital signs: Vital Signs Temperature 97.8 F 11/15/22 11:03 Pulse Rate 85 11/15/22 11:03 Respiratory Rate 16 11/15/22 11:03 Blood Pressure 130/89 11/15/22 11:03 Pulse Oximetry 96 11/15/22 11:03 Oxygen Delivery Me thod 11/15/22 11:03 MDM - Back Pain/Injury Medical Decision Making Patient here with complaints of intermittent diffuse neck and back pains that she has had for least 8 months. She states she will have flares and has been told it is secondary to her fibromyalgia and her polymyalgia rheumatica. I do not see any need for emergent imaging today. Patient will be discharged home on a steroid taper. She takes diclofenac daily she can continue this. Recommend she follow-up with her PCP and/or electronic news gathering editor if pain does not improve. Discharge Plan Discharge Patient Disposition: Home Clinical Impression: Polymyalgia rheumatica, Chronic neck and back pain Condition: Stable Prescriptions: New methylprednisolone [Medrol (Reji)] 4 mg tablets,dose pack See Rx Instructions .ROUTE .COMPLEX Qty: 21 0RF Rx Instructions: orally per package directions No Action diclofenac sodium 75 mg tablet,delayed release (DR/EC) 75 mg PO BID PRN (Reason: PRN for moderate to severe pain ) Qty: 30 1RF Hold Instructions: see pcp diclofenac sodium 1 % gel 2 g topical QID Qty: 100 2RF Rx Instructions: apply to affected area as needed leflunomide 20 mg tablet 20 mg PO DAILY Qty: 30 3RF duloxetine [Cymbalta] 60 mg capsule,delayed release(DR/EC) 60 mg PO DAILY Qty: 30 3RF gabapentin 300 mg capsule See Rx Instructions PO TID Qty: 120 3RF Rx Instructions: take 300mg in the AM, 300mg in the lori and 600mg at bedtime prednisone 5 mg tablet 5 mg PO DAILY Qty: 90 1RF prednisone 20 mg tablet See Rx Instructions PO .COMPLEX PRN (Reason: joint pain flare) Qty: 30 1RF Rx Instructions: take 1 tab daily for 3-7 days as needed for arthritis flare PO PRN; tramadol 50 mg tablet 50 mg PO TID PRN (Reason: pain) Qty: 60 0RF folic acid 1 mg tablet 1 mg PO DAILY Qty: 90 1RF hydroxychloroquine 200 mg tablet 200 mg PO BID Qty: 60 3RF Discharge Orders: Discharge ED (Routine); Ordered 11/15/22 Ordered By: Carol Klein Referrals: Uriel Lopez DO [Primary Care Provider] - Activity Restrictions/Additional Instructions: As we discussed I am placing you on a steroid taper. You may hold your 5 mg prednisone tablets until you finish taper and then you may resume this again. You may continue your diclofenac as directed which is your anti-inflammatory medication. You may continue all other medications as prescribed. Coding Level of Care Code ED Resort Host for Bert Smith
[2022-11-15] MEDS: dexamethasone 10 mg/mL INJ 8 MG IM (12:12)
[2022-11-15] MEDS: morphine 4 mg/mL SDV 1 mL IM (12:14)
== END 2022-11-15 12:15 | disposition home or self-care (01) ==
PROVIDERS: Emergency Provider Physician Assistant; PCP Electrodiagnostic Medicine
DX: M35.3 Polymyalgia rheumatica (principal); G89.29 Other chronic pain; M54.2 Cervicalgia; M54.9 Dorsalgia, unspecified
CPT/HCPCS: 96372; 99284; J1100; J2270

== ENCOUNTER 2022-12-20 11:26 | Outpatient (CLI) | payer OTHER, SELFPAY ==
--- NOTE | 2022-12-20 11:35 | XR_ITS ---
WS: [id number] XR lumbar spine 6V w f/e [id number] REASON FOR EXAM: back pain FINDINGS: There are 6 lumbar vertebrae without ribs. Last lumbar vertebrae is transitional and may be fused to the sacrum. The last true lumbar vertebrae will be considered L5. Mild rotatory scoliosis convex left. No vertebral body compression deformity or focal lesion. Moderate narrowing of the L5-transitional vertebrae disc space with vacuum disc and endplate sclerosi s and osteophytosis. Remainder of the intervertebral disc spaces are intact and relatively well-prese rved. No spondylolysis. No significant spondylolisthesis. No significant vertebral body movement with flexion or extension. XR/XR lumbar spine 6V w f/e [id number] IMPRESSION: Degenerative spondylosis as above.
== END 2022-12-20 11:27 | disposition home or self-care (01) ==
LOC: RAD 11:29
PROVIDERS: PCP Nurse Practitioner Family; Visit Provider Nurse Practitioner Family
DX: M47.816 Spondylosis without myelopathy or radiculopathy, lumbar region
CPT/HCPCS: 72114

== ENCOUNTER 2023-01-07 14:08 | Outpatient (CLI) | payer OTHER, SELFPAY ==
--- NOTE | 2023-01-07 14:30 | MR_ITS ---
WS: [id number] MRI LUMBAR SPINE NONCONTRAST TECHNIQUE: Sagittal T1, T2 and STIR imaging. Axial T1 and T2 imaging. CLINICAL INFORMATION: increased back pain COMPARISON: None. FINDINGS: Mild lumbar curve. No acute compression. Disc space narrowing worse L4-L5. Mild disc bulging L3-L4 L4 -L5. No high-grade central canal stenosis. L1-L2: Mild annular bulging. Spinal canal and foramen are patent. L2-L3: Minimal annular bulging. Mild facet arthropathy. Spinal canal and foramen are patent. L3-L4: Mild annular bulging with mild central canal stenosis. Impingement traversing L4 nerve roots b ilaterally. Mild facet arthropathy. Mild RIGHT foraminal narrowing. LEFT foramen is patent. L4-L5: Disc space narrowing with impingement on the traversing LEFT L5 nerve root in the subarticular recess. Mild central canal stenosis. LEFT eccentric disc bulging slightly encroaches on the far exit ing LEFT L4 nerve root. Foramen are patent. Mild facet arthropathy. L5-S1: Mild annular bulging. Slight contact of the traversing S1 nerve roots bilaterally. Spinal jay l and foramen are patent. Mild facet arthropathy. Visualized pelvic bony structures: Normal. Paravertebral soft tissues: Normal. MR/MR lumbar spine wo con* [id number] IMPRESSION: 1. Mild lumbar curve. No acute compression. No high-grade mild central canal s tenosis 2. Mild central canal stenosis L3-L4 with slight impingement traversing L4 ner ve roots bilaterally. 3. Disc bulging L4-L5 with disc space narrowing. Impingement traversing LEFT L 5 nerve root in the subarticular recess. Recommend correlation with L5 nerve ro ot symptoms. 4. Mild disc bulging L5-S1 with slight impingement traversing S1 nerve roots b ilaterally. 5. Tiny RIGHT foraminal protrusion L3-L4 with slight contact of the exiting RI GHT L3 nerve root. Recommend correlation for RIGHT L3 nerve root symptoms. 6. Mild facet arthropathy L3-L4 and L4-L5.
== END 2023-01-07 14:09 | disposition home or self-care (01) ==
LOC: RAD 14:13
PROVIDERS: PCP Nurse Practitioner Family; Visit Provider Nurse Practitioner Family
DX: M51.36 Other intervertebral disc degeneration, lumbar region (principal); R93.7 Abnormal findings on diagnostic imaging of other parts of musculoskeletal system; M43.8X6 Other specified deforming dorsopathies, lumbar region; M48.061 Spinal stenosis, lumbar region without neurogenic claudication; M51.37 Other intervertebral disc degeneration, lumbosacral region; M51.26 Other intervertebral disc displacement, lumbar region; M47.816 Spondylosis without myelopathy or radiculopathy, lumbar region
CPT/HCPCS: 72148

== ENCOUNTER → 2023-01-20 11:54 | Outpatient (BNVA) | payer OTHER, SELFPAY | PROVIDERS: PCP Nurse Practitioner Family; Visit Provider Internal Medicine Rheumatology | DX: M06.041 Rheumatoid arthritis without rheumatoid factor, right hand (principal); M06.042 Rheumatoid arthritis without rheumatoid factor, left hand; Z79.899 Other long term (current) drug therapy; Z71.89 Other specified counseling; M17.0 Bilateral primary osteoarthritis of knee; M19.90 Unspecified osteoarthritis, unspecified site | CPT/HCPCS: 36415; 80076; 82565; 85025; 86140 ==

== ENCOUNTER → 2023-02-22 09:40 | Outpatient (BNVA) | payer OTHER, SELFPAY | PROVIDERS: PCP Nurse Practitioner Family; Visit Provider Internal Medicine Rheumatology | DX: M19.90 Unspecified osteoarthritis, unspecified site (principal); M06.041 Rheumatoid arthritis without rheumatoid factor, right hand; M06.042 Rheumatoid arthritis without rheumatoid factor, left hand; Z79.899 Other long term (current) drug therapy | CPT/HCPCS: 80076; 82565; 85025 ==

== ENCOUNTER → 2023-06-15 11:30 | Outpatient (BNVA) | payer OTHER, SELFPAY | PROVIDERS: PCP Nurse Practitioner Family; Visit Provider Internal Medicine Rheumatology | DX: M06.041 Rheumatoid arthritis without rheumatoid factor, right hand (principal); M06.042 Rheumatoid arthritis without rheumatoid factor, left hand; Z79.899 Other long term (current) drug therapy; Z71.89 Other specified counseling; M17.0 Bilateral primary osteoarthritis of knee | CPT/HCPCS: 36415; 80076; 82565; 85025; 85651; 86140 ==

== ENCOUNTER → 2023-10-05 11:15 | Outpatient (BNVA) | payer OTHER, SELFPAY | PROVIDERS: PCP Nurse Practitioner Family; Visit Provider Internal Medicine Rheumatology | DX: M06.041 Rheumatoid arthritis without rheumatoid factor, right hand (principal); M06.042 Rheumatoid arthritis without rheumatoid factor, left hand; Z79.899 Other long term (current) drug therapy; Z71.89 Other specified counseling; M17.0 Bilateral primary osteoarthritis of knee | CPT/HCPCS: 36415; 80076; 82565; 85025; 86140 ==

== ENCOUNTER 2023-10-19 13:05 | Emergency (ER) | payer SELFPAY ==
[2023-10-19 13:09] VITALS: BP 154/105; PULSE 89; RESP 18; TEMP 36.3; O2SAT 97
[2023-10-19] MEDS: ondansetron 2 mg/ML SDV 2 mL 4 MG IVP (13:42)
[2023-10-19] MEDS: sodium chloride 0.9% 1,000 ML 999 ML IV (13:43)
[2023-10-19 13:44] VITALS: BP 148/101; PULSE 94; RESP 18; O2SAT 96
--- NOTE | 2023-10-19 13:56 | PC.PHAR ---
PT STATES MEDS NOT TAKEN TODAY SINCE SHE CAN'T KEEP ANYTHING DOWN. 10/19/23
--- NOTE | 2023-10-19 14:00 | W.ED.NAVMDI ---
HPI - Nausea/Vomiting/Diarrhea General: Chief complaint: Nausea/Vomiting/Diarrhea Stated complaint: n/v, diarrhea Time Seen by Provider: 10/19/23 13:25 Source: patient Mode of arrival: ambulatory History of Present Illness: 58-year-old female presents emergency room complaining nausea and vomiting began yesterday morning has been persistent feels like she cannot keep anything down including her medications. She has bilious like vomit. She denies any medication melena hematemesis coffee-ground emesis several other failures of movement 6 she is also little bit of a cough. No previous abdominal surgeries no diarrhea. She denies dysuria urgency or frequency. MD elicited complaint: nausea and vomiting Onset (ago): day(s) (1) Description of vomiting: bilious Associated nausea: Yes Associated abdominal pain: No Location of pain: None Exacerbating factors: none Relieving factors: none Associated symtoms: Reports anorexia, malaise and nausea; Denies altered mental status, anxiety, bloating, change in vision, chest pain, cough, diaphoresis, decreased urine output, dizziness, dysuria, epistaxis, fatigue, fecal incontinence, fevers/chills, headache(s), myalgias, numbness, palpitations, rash, short of breath, syncope, tenesmus, tinnitus or weakness Review of Systems Const: Reports: malaise; Denies: fever(s), chills, fatigue or diaphoresis Eyes: Denies: change in vision ENMT: Denies: tinnitus or epistaxis Card: Denies: chest pain, palpitations or syncope Resp: Denies: dyspnea GI: Reports: nausea; Denies: abdominal pain, bloating or fecal incontinence : Denies: dysuria, urinary frequency or urinary urgency Musc: Denies: neck pain or back pain Skin/Breast: Denies: rash Neuro: Denies: headache(s) or dizziness Psych: Denies: anxiety PFSH ED PFSH: Medical History Seronegative rheumatoid arthritis of both hands Osteoarthritis of knees, bilateral Immunization counseling High risk medication use Inflammatory arthritis COVID-19 04/2021 Polymyalgia rheumatica Lumbago with sciatica Surgical History No history of previous surgery Family History Father Cancer Colon cancer Sister Cancer Colon cancer Diabetes Mother Diabetes Rheumatoid arthritis Grandmother CAD (coronary artery disease) Other Psychiatric illness Denies family history of PMR (polymyalgia rheumatica) Lupus Hyperlipidemia Lung disease Hypertension Stroke Social History Smoking and tobacco/nicotine status: never used tobacco/nicotine Alcohol intake: never Substance/Drug Use: never Lives independently: Yes Household members: family Housing: House Marital status: / Physical Exam Const: COMMON NORMALS: no acute distress EXAM LIMITATIONS: no altered mental status GENERAL APPEARANCE: cooperative and comfortable ORIENTATION/CONSCIOUSNESS: Yes awake, Yes oriented to person, Yes oriented to place and Yes oriented to time HENMT: COMMON NORMALS: normocephalic, atraumatic and hearing grossly normal bilaterally HEAD & SCALP: normocephalic and atraumatic Resp: COMMON NORMALS: normal respiratory effort, No retractions, No use of accessory muscles and clear to auscultation bilaterally AUSCULTATION: clear to auscultation bilaterally Cardio: COMMON NORMALS: regular rate, regular rhythm and No murmurs present (Cardio) RATE: regular rate RHYTHM: regular rhythm GI: COMMON NORMALS: Soft to palpation and No hepatosplenomegaly present AUSCULTATION: Yes normoactive bowel sounds PALPATION: Yes Soft to palpation, No Tenderness to palpation present (GI), No Guarding due to palpation present (GI) and Yes No hepatosplenomegaly present Extremity: COMMON NORMALS: normal to inspection, capillary refill normal, no clubbing, cyanosis or edema, no calf tenderness and no pedal edema Neuro: SENSORIUM/ORIENTATION: Yes oriented to person, Yes oriented to place and Yes oriented to time Skin: COMMON NORMALS: no rashes or lesions noted GENERAL SKIN EXAM: no rashes or lesions noted Course Vital Signs: Vital signs: Vital Signs Temperature 97.3 F L 10/19/23 13:09 Pulse Rate 94 10/19/23 13:44 Respiratory Rate 18 10/19/23 13:44 Blood Pressure 148/101 10/19/23 13:44 Pulse Oximetry 95 10/19/23 15:36 Oxygen Delivery Me thod Room Air 10/19/23 15:36 MDM - Nausea/Vomiting/Diarrhea Medical Decision Making Nausea vomiting improved with medications and IV fluids. Will discharge patient home with antiemetics clear liquid diet advance as tolerated Medical Records I reviewed the patient's medical records. Lab Data I reviewed the patient's lab results. 10/19/23 13:43 10/19/23 13:43 Laboratory Results WBC 7.40 10^3/uL (3.29-11.43) 10/19/23 13:43 RBC 4.82 10^6/uL (3.85-5.65) 10/19/23 13:43 Hgb 14.40 g/dL (11.27-16.99) 10/19/23 13:43 Hct 44.4 % (36-47) 10/19/23 13:43 MCV 92.1 fl (85-98) 10/19/23 13:43 MCH 29.9 pg (27-33) 10/19/23 13:43 MCHC 32.4 g/dL (30-55) 10/19/23 13:43 RDW 13.6 % (12.1-15.1) 10/19/23 13:43 Plt Count 307 10^3/cmm (157-399) 10/19/23 13:43 MPV 11.1 fL (7.4-10.4) H 10/19/23 13:43 Neut % (Auto) 69.7 % 10/19/23 13:43 Lymph % (Auto) 15.9 % 10/19/23 13:43 [place] % (Auto) 10.5 % 10/19/23 13:43 Eos % (Auto) 2.6 % 10/19/23 13:43 Baso % (Auto) 0.8 % 10/19/23 13:43 Neut # (Auto) 5.15 10^3/uL (1.8-7.7) 10/19/23 13:43 Lymph # (Auto) 1.2 10^3/uL (0.8-4.8) 10/19/23 13:43 [place] # (Auto) 0.8 10^3/uL (0.2-0.9) 10/19/23 13:43 Eos # (Auto) 0.2 10^3/uL (0.0-0.8) 10/19/23 13:43 Baso # (Auto) 0.1 10^3/uL (0.0-0.1) 10/19/23 13:43 Nucleated RBC % (auto) 0 % 10/19/23 13:43 Nucleated RBCs # 0.0 /100WBC 10/19/23 13:43 Sodium 136 mmol/L (136-145) 10/19/23 13:43 Potassium 4.0 mmol/L (3.5-5.1) 10/19/23 13:43 Chloride 97 mmol/L (98-107) L 10/19/23 13:43 Carbon Dioxide 24 mmol/L (22-29) 10/19/23 13:43 Anion Gap 19.0 (5-19) 10/19/23 13:43 BUN 13 mg/dL (8-23) 10/19/23 13:43 Creatinine 0.9 mg/dL (0.5-0.9) 10/19/23 13:43 GFR Calculation 63.9 mL/min (90-130) L 10/19/23 13:43 Glucose 112 mg/dL (65-115) 10/19/23 13:43 Calculated Osmolality 283 mOsm/kg (285-295) L 10/19/23 13:43 Calcium 9.6 mg/dL (8.5-10.5) 10/19/23 13:43 Total Bilirubin 0.4 mg/dL (0.15-1.2) 10/19/23 13:43 AST 29 U/L (0-32) 10/19/23 13:43 ALT 41 U/L (0-33) H 10/19/23 13:43 Alkaline Phosphatase 104 U/L (35-105) 10/19/23 13:43 Total Protein 7.3 g/dL (6.6-8.7) 10/19/23 13:43 Albumin 3.8 g/dL (3.5-5.2) 10/19/23 13:43 Globulin 3.5 g/dL (1.3-4.6) 10/19/23 13:43 Lipase 18 U/L (13-60) 10/19/23 13:43 Urine Color Yellow (Yellow) 10/19/23 14:20 Urine Appearance Sl hazy (CLEAR) A 10/19/23 14:20 Urine pH 5 (5-7) 10/19/23 14:20 Ur Specific [place] 1.025 (1.005-1.030) 10/19/23 14:20 Urine Protein Neg (Negative) 10/19/23 14:20 Urine Glucose (UA) Norm (Normal) 10/19/23 14:20 Urine Ketones 2+ (Negative) H 10/19/23 14:20 Urine Blood Neg (Negative) 10/19/23 14:20 Urine Nitrate Negative (Negative) 10/19/23 14:20 Urine Bilirubin Neg (Negative) 10/19/23 14:20 Urine Urobilinogen Norm mg/dL (Negative) 10/19/23 14:20 Ur Leukocyte Esterase 2+ (Negative) H 10/19/23 14:20 Urine RBC 0-4 /hpf (0-2) H 10/19/23 14:20 Urine WBC 5-10 /hpf (0-5) H 10/19/23 14:20 Ur Squamous Epith Cells 0-4 /hpf (0-5) H 10/19/23 14:20 Ur Transition Epith Cell 0-4 /hpf 10/19/23 14:20 Amorphous Sediment Not Reportable 10/19/23 14:20 Urine Bacteria Trace /hpf (NONE) 10/19/23 14:20 Hyaline Casts 0-4 /lpf H 10/19/23 14:20 Urine Mucus 3+ /hpf 10/19/23 14:20 All radiology interpretation(s) finalized by discharge Discharge Plan Discharge Patient Disposition: Home Clinical Impression: Gastroenteritis Condition: Stable Prescriptions: New ondansetron HCl 4 mg tablet 4 mg PO Q6H PRN (Reason: nausea and vomiting) Qty: 20 0RF No Action tizanidine 4 mg tablet 4 mg PO BID PRN (Reason: muscle spasticity) Qty: 60 0RF Humira Pen 40 mg/0.8 mL pen injector kit 40 mg SUBCUT Q14D Qty: 2 3RF duloxetine [Cymbalta] 60 mg capsule,delayed release(DR/EC) 60 mg PO DAILY Qty: 90 1RF hydroxychloroquine 200 mg tablet 200 mg PO BID Qty: 180 1RF leflunomide 10 mg tablet 10 mg PO DAILY Qty: 90 1RF pregabalin 150 mg capsule 150 mg PO BID Qty: 60 3RF prednisone 5 mg tablet See Rx Instructions PO .COMPLEX Qty: 90 1RF Rx Instructions: 1tab BID c40bysm, then 1.5 QD x7days, 1 QD x7days then stay on 0.5 tab daily orally ; tramadol 50 mg tablet 50 mg PO TID PRN (Reason: pain) Qty: 60 0RF baclofen 10 mg tablet See Rx Instructions .ROUTE .COMPLEX Rx Instructions: TAKE ONE TABLET BY MOUTH UP TO TWICE DAILY NEEDED FOR SEVERE MUSCLE CRAMPS AND PAIN diclofenac sodium 1 % gel 2 g topical QID PRN (Reason: Pain) Discharge Orders: Discharge ED (Routine); Ordered 10/19/23 Ordered By: Jonh Rodriguez Referrals: Margarita Sarmiento NP [Primary Care Provider] - Discharge Diet: Clear Liquid Discharge Activity: Increase activity as tolerated Patient Instructions: Clear Liquid Diet (ED), Gastroenteritis (ED), Opioid Safety, Pain Management Activity Restrictions/Additional Instructions: Thank you for choosing [facility] for your healthcare needs today. Please realize this is an emergency room and that we are providing you with a medical screening exam and this may not be complete and all inclusive of all the testing and or work up that you may need to determine your ailment or severity of your illness. It is very important that you follow up as instructed or that you return to the Emergency Department should you have concerns or if your condition changes or worsens in any way. 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
[2023-10-19 14:06] LABS: Basophils # 0.1 10^3/uL (0.0-0.1); Basophils % 0.8 %; Eosinophils # 0.2 10^3/uL (0.0-0.8); Eosinophils % 2.6 %; Hematocrit 44.4 % (36-47); Lymphocytes # 1.2 10^3/uL (0.8-4.8); Lymphocytes % 15.9 %; Mean Corpuscular HGB Conc 32.4 g/dL (30-55); Mean Corpuscular Hemoglobin 29.9 pg (27-33); Mean Corpuscular Volume 92.1 fl (85-98); Mean Platelet Volume 11.1 fL (7.4-10.4); Monocytes # 0.8 10^3/uL (0.2-0.9); Monocytes % 10.5 %; Neutrophils # 5.15 10^3/uL (1.8-7.7); Neutrophils % 69.7 %; Nucleated Red Blood Cells % 0 %; Platelet Count 307 10^3/cmm (157-399); Red Blood Count 4.82 10^6/uL (3.85-5.65); Red Cell Distribution Width 13.6 % (12.1-15.1)
[2023-10-19 14:25] LABS: Alanine Aminotransferase 41 U/L (0-33); Albumin Level 3.8 g/dL (3.5-5.2); Alkaline Phosphatase 104 U/L (35-105); Aspartate Amino Transferase 29 U/L (0-32); Blood Urea Nitrogen 13 mg/dL (8-23); Calcium 9.6 mg/dL (8.5-10.5); Carbon Dioxide 24 mmol/L (22-29); Chloride 97 mmol/L (98-107); Globulin 3.5 g/dL (1.3-4.6); Glomerular Filtration Rate 63.9 mL/min (90-130); Glucose 112 mg/dL (65-115); Lipase 18 U/L (13-60); Osmolality Calculated 283 mOsm/kg (285-295); Sodium 136 mmol/L (136-145); Total Bilirubin 0.4 mg/dL (0.15-1.2); Total Protein 7.3 g/dL (6.6-8.7)
[2023-10-19 15:28] LABS: Glucose Urine UA Norm (Normal); Protein Urine Neg (Negative); Specific Gravity, Urine 1.025 (1.005-1.030); Urine Appearance SL Hazy (CLEAR); Urine Color Yellow (Yellow); pH Urine 5 (5-7)
[2023-10-19 15:29] LABS: Add Urine Microscopic? YES; Bilirubin Urine Neg (Negative); Blood Urine Neg (Negative); Ketones Urine 2+ (Negative); Leukocyte Esterase Urine 2+ (Negative); Nitrate Urine Negative (Negative); Urobilinogen Urine Norm (Negative)
[2023-10-19 15:32] LABS: Add Urine Culture? No; Bacteria Urine TRACE /hpf; Hyaline Casts Urine 0-4 /lpf; Mucus Urine 3+ /hpf; RBC Urine 0-4 /hpf (0-2); Squamous Epithelial Cell Urine 0-4 /hpf (0-5); Transitional Epi Cells Urine 0-4 /hpf
[2023-10-19 15:36] VITALS: O2SAT 95
== END 2023-10-19 17:04 | disposition home or self-care (01) ==
PROVIDERS: Emergency Provider Family Medicine; PCP Nurse Practitioner Family
DX: K52.9 Noninfective gastroenteritis and colitis, unspecified (principal)
CPT/HCPCS: 36415; 80053; 81001; 83690; 85025; 96374; 99284; J2405; J7030

== ENCOUNTER → 2023-11-16 16:34 | Outpatient (BNVA) | payer SELFPAY | PROVIDERS: PCP Nurse Practitioner Family; Visit Provider Nurse Practitioner Family | DX: R60.9 Edema, unspecified (principal); Z79.899 Other long term (current) drug therapy | CPT/HCPCS: 80053; 83880; 85025 ==

== ENCOUNTER 2023-11-25 13:12 | Outpatient (CLI) | payer OTHER, SELFPAY ==
--- NOTE | 2023-11-25 13:30 | USCV_ITS ---
Bart Jana Age: 58 Gender: F : 1965 Exam Date: 11/25/2023 13:56 Ordering Phys: Margarita Sarmiento NP Technologist: MICHAEL [place]am Location[place] [facility] [place] Indication: EDEMA AND CHEST PAIN BP: 128 / 82 HR: 87 Rhythm: Sinus Technical Quality: Adequate MEASUREMENTS (Male / Female) Normal Values 2D ECHO LV Diastolic Diameter PLAX 4.3 cm 4.2 - 5.9 / 3.9 - 5.3 cm IVS Diastolic Thickness 1.0 cm 0.6 - 1.0 / 0.6 - 0.9 cm IVS Systolic Thickness 1.4 cm LVPW Diastolic Thickness 1.1 cm 0.6 - 1.0 / 0.6 - 0.9 cm LVPW Systolic Thickness 2.2 cm LVOT Diameter 2.0 cm LV Ejection Fraction 2D Teich 79.3 % LV Ejection Fraction MOD 2C 61.3 % LV Ejection Fraction 2C AL 60.5 % LA Diameter 2.5 cm RA Systolic Volume 4C AL 22.6 ml RA Systolic Volume 4C MOD 20.6 ml Aorta at Sinotubular Diameter 2.3 cm IVC Diameter 1.4 cm M-MODE LA Ao Ratio MM 0.8 AV Cusp Separation MM 1.8 cm DOPPLER AV Peak Velocity 105.0 cm/s LVOT Peak Velocity 78.0 cm/s AV Area Cont Eq vti 2.5 cm squared AV Area Cont Eq pk 2.4 cm squared MV Peak Velocity 84.0 cm/s MV Area PHT 5.2 cm squared Mitral E to A Ratio 1.1 TR Peak Velocity 127.0 cm/s TR Peak Gradient 6.5 mmHg TR Mean Velocity 102.0 cm/s TR Mean Gradient 4.6 mmHg TR Velocity Time Integral 33.9 cm TV Peak E Velocity 48.0 cm/s Right Atrial Pressure 3.0 mmHg Pulmonary Artery Systolic Pressu 9.5 mmHg PV Peak Velocity 106.0 cm/s RV Ejection Time 0.3 s FINDINGS Left Ventricle Normal left ventricular size, systolic function and wall thickness, with no regional wall motion abnormalities. Grade I/IV diastolic dysfunction (abnormal relaxation filling pattern), normal to mildly elevated filling pressures. Left ventricular ejection fraction is estimated at 65 %. Right Ventricle Normal right ventricular size and systolic function. Normal right ventricular systolic pressure. Right Atrium The right atrium is normal in size. Left Atrium The left atrium is normal in size. Mitral Valve Structurally normal mitral valve. Trace mitral valve regurgitation. Aortic Valve Structurally normal aortic valve without significant sclerosis or stenosis. There is no aortic regurgitation. Tricuspid Valve Structurally normal tricuspid valve without significant stenosis or regurgitation. Pulmonary artery systolic pressure is normal. Pulmonic Valve Pulmonic valve not well visualized. Pericardium Aorta Normal ascending aorta dimension. IVC The inferior vena cava appears normal. CONCLUSIONS Normal left ventricular size, systolic function and wall thickness, with no regional wall motion abnormalities. Grade I/IV diastolic dysfunction (abnormal relaxation filling pattern), normal to mildly elevated filling pressures. Left ventricular ejection fraction is estimated at 65 %. Structurally normal mitral valve. Trace mitral valve regurgitation. Trivial pericardial effusion. Echocardiographic findings suggest a non hemodynamically significant pericardial effusion. There are no prior echocardiogram studies to compare. Dr. Ariel Hernandez MD (Electronically Signed) Final Date: 25 November 2023 19:14 S
== END 2023-11-25 13:13 | disposition home or self-care (01) ==
LOC: RAD 13:20
PROVIDERS: PCP Nurse Practitioner Family; Visit Provider Nurse Practitioner Family
DX: R60.9 Edema, unspecified (principal); R07.9 Chest pain, unspecified; I51.89 Other ill-defined heart diseases
CPT/HCPCS: 93306

== ENCOUNTER 2023-12-20 10:49 | Outpatient (CLI) | payer OTHER, SELFPAY ==
[2023-12-20 11:17] LABS: Basophils # 0.1 10^3/uL (0.0-0.1); Basophils % 1.2 %; Eosinophils # 0.5 10^3/uL (0.0-0.8); Hematocrit 40.6 % (36-47); Lymphocytes # 1.4 10^3/uL (0.8-4.8); Lymphocytes % 24.2 %; Mean Corpuscular HGB Conc 31.8 g/dL (30-55); Mean Corpuscular Hemoglobin 28.1 pg (27-33); Mean Corpuscular Volume 88.5 fl (85-98); Mean Platelet Volume 10.7 fL (7.4-10.4); Monocytes # 0.7 10^3/uL (0.2-0.9); Monocytes % 12.2 %; Neutrophils # 3.14 10^3/uL (1.8-7.7); Neutrophils % 53.2 %; Nucleated Red Blood Cells % 0 %; Platelet Count 409 10^3/cmm (157-399); Red Blood Count 4.59 10^6/uL (3.85-5.65); Red Cell Distribution Width 13.9 % (12.1-15.1)
[2023-12-20 11:48] LABS: Alanine Aminotransferase 16 U/L (0-33); Albumin Level 3.7 g/dL (3.5-5.2); Alkaline Phosphatase 97 U/L (35-105); Aspartate Amino Transferase 28 U/L (0-32); Blood Urea Nitrogen 8 mg/dL (8-23); Carbon Dioxide 27 mmol/L (22-29); Chloride 104 mmol/L (98-107); Globulin 3.4 g/dL (1.3-4.6); Glomerular Filtration Rate 50.7 mL/min (90-130); Glucose 111 mg/dL (65-115); NT Pro B Type Natriuretic Pept 219 pg/mL (0-125); Osmolality Calculated 291 mOsm/kg (285-295); Sodium 141 mmol/L (136-145); Total Bilirubin 0.3 mg/dL (0.15-1.2); Total Protein 7.1 g/dL (6.6-8.7)
== END 2023-12-20 10:50 | disposition home or self-care (01) ==
LOC: LAB 10:53
PROVIDERS: PCP Nurse Practitioner Family; Visit Provider Nurse Practitioner Family
DX: N18.31 Chronic kidney disease, stage 3a (principal); E87.6 Hypokalemia; R60.9 Edema, unspecified
CPT/HCPCS: 36415; 80053; 83880; 85025

== ENCOUNTER → 2024-02-01 14:09 | Outpatient (BNVA) | payer OTHER, SELFPAY | PROVIDERS: PCP Nurse Practitioner Family; Visit Provider Nurse Practitioner Family | DX: N18.31 Chronic kidney disease, stage 3a (principal) | CPT/HCPCS: 80053; 85025 ==

== ENCOUNTER → 2024-02-21 11:08 | Outpatient (BNVA) | payer OTHER, SELFPAY | PROVIDERS: PCP Nurse Practitioner Family; Referring Provider Nurse Practitioner Family; Visit Provider Student in an Organized Health Care Education/Training Program | DX: S42.031A Displaced fracture of lateral end of right clavicle, initial encounter for closed fracture; S43.101A Unspecified dislocation of right acromioclavicular joint, initial encounter; W01.198A Fall on same level from slipping, tripping and stumbling with subsequent striking against other object, initial encounter | CPT/HCPCS: 73000 ==

== ENCOUNTER → 2024-06-06 10:26 | Outpatient (BNVA) | payer OTHER, SELFPAY | PROVIDERS: PCP Nurse Practitioner Family; Visit Provider Internal Medicine Rheumatology | DX: M06.041 Rheumatoid arthritis without rheumatoid factor, right hand (principal); M06.042 Rheumatoid arthritis without rheumatoid factor, left hand; Z79.899 Other long term (current) drug therapy | CPT/HCPCS: 80076; 82565; 85025; 86140 ==

== ENCOUNTER → 2024-06-13 11:39 | Outpatient (BNVA) | payer OTHER, SELFPAY | PROVIDERS: PCP Nurse Practitioner Family; Visit Provider Nurse Practitioner Family | DX: R73.9 Hyperglycemia, unspecified (principal); E55.9 Vitamin D deficiency, unspecified | CPT/HCPCS: 80061; 82306; 83036 ==

== ENCOUNTER → 2024-08-08 15:16 | Outpatient (BNVA) | payer OTHER, SELFPAY | PROVIDERS: Visit Provider Nurse Practitioner Family | DX: M06.041 Rheumatoid arthritis without rheumatoid factor, right hand (principal); M06.042 Rheumatoid arthritis without rheumatoid factor, left hand; Z79.899 Other long term (current) drug therapy | CPT/HCPCS: 80076; 82565; 85025; 85651; 86140 ==

== ENCOUNTER 2024-08-28 09:28 | Outpatient (CLI) | payer OTHER, SELFPAY ==
--- NOTE | 2024-08-28 09:20 | MM_ITS ---
WS: [id number] VIEWS: MLO and CC views both breasts. 3D digital tomosynthesis is also included in this exam. Comparison made with prior exam of 12/25/2013, 07/15/2014, 02/24/2018,. Findings: There are scattered areas of fibroglandular density. No sign of suspicious mass, tumor calcification or architectural distortion. MM/MM scr BI tomosynthesis [id number] Impression: BI-RADS: 2 - Benign. FOLLOW-UP: 1 Year Follow-up This mammogram was also analyzed by the Computer Aided Detection System R2 Imag e Mri Ct Tech.
== END 2024-08-28 09:29 | disposition home or self-care (01) ==
LOC: MOBLMAM 09:34
PROVIDERS: PCP Nurse Practitioner Family; Visit Provider Nurse Practitioner Family
DX: Z12.31 Encounter for screening mammogram for malignant neoplasm of breast (principal); R92.323 Mammographic fibroglandular density, bilateral breasts
CPT/HCPCS: 77063; 77067

== ENCOUNTER → 2024-10-31 10:24 | Outpatient (BNVA) | payer OTHER, SELFPAY | PROVIDERS: Family Provider Nurse Practitioner Family; PCP Nurse Practitioner Family; Visit Provider Nurse Practitioner Family | DX: R50.9 Fever, unspecified (principal) | CPT/HCPCS: 87400 ==

== ENCOUNTER → 2024-12-03 14:36 | Outpatient (BNVA) | payer OTHER, SELFPAY | PROVIDERS: Family Provider Nurse Practitioner Family; PCP Nurse Practitioner Family; Visit Provider Nurse Practitioner Family | DX: E78.5 Hyperlipidemia, unspecified (principal); R73.9 Hyperglycemia, unspecified; E55.9 Vitamin D deficiency, unspecified | CPT/HCPCS: 80053; 80061; 82306; 83036; 84443; 85025 ==

== ENCOUNTER 2024-12-25 07:43 | Day surgery (SDC) | payer OTHER, SELFPAY ==
[2024-12-25 07:58] VITALS: BP 109/82; PULSE 86; RESP 18; TEMP 36.1; O2SAT 97; BMI 23.5
--- NOTE | 2024-12-25 08:10 | ANES.PREANE2 ---
Pre-Anesthetic Assessment Height/Weight: Height 1.78 m Weight 74.389 kg Temp Pulse Resp BP Pulse Ox O2 Del Method 97 F L 86 18 109/82 97 Room Air 12/25/24 07:58 12/25/24 07:58 12/25/24 07:58 12/25/24 07:58 12/25/24 07:58 12/25/24 07:58 Operation Date: 12/25/24 08:15 Proposed Procedures p Colonoscopy 23212 G0105 Z12.11(Not Applicable) - Rylan Harrington MD Familial anesthetic complications: None Was Beta Justin taken within 24 hours: N/A Was Clonidine taken within 24 hours: N/A Last intake: Intake Last Liquid Date 12/24/24 Last Liquid Time 22:00 Last Solid Date 12/23/24 Last Solid Time 22:00 Social No alcohol and No tobacco Exam alert, oriented x 3, clear to auscultation bilaterally and regular rate & rhythm Airway Submandibular: within normal limits (Small mouth opening) Cervical ROM: within normal limits Mallampati: Class III Dentition: chipped Comments: Comments: Per patient a lot of teeth are broken all teeth will be pulled on the History/ROS No significant history except as noted and No significant complaints Pulmonary None reported CV/HEM None reported CONCLUSIONS Normal left ventricular size, systolic function and wall thickness, with no regional wall motion abnormalities. Grade I/IV diastolic dysfunction (abnormal relaxation filling pattern), normal to mildly elevated filling pressures. Left ventricular ejection fraction is estimated at 65 %. Structurally normal mitral valve. Trace mitral valve regurgitation. Trivial pericardial effusion. Echocardiographic findings suggest a non hemodynamically significant pericardial effusion. There are no prior echocardiogram studies to compare. Chronic Renal Insufficiency (CKD stage 3, patient denies) Hepatic None reported GI None reported Metabolic Hyperlipidemia [facility] – [place], [place] Fibromyalgia, Osteoarthritis/DJD and Rheumatoid Arthritis Neuropsych Neuropathy Anesthetic Plan ASA status: 3 Anesthesia: Anesthesia Evaluation, General and MAC Risk of > 500 ml blood loss (7ml/kg in children): No Medications/Allergies Home Medications ?Medication ?Instructions ?Recorded ?Confirmed ?Last Taken ?Type diclofenac sodium 1 % topical gel 2 g topical QID PRN Pain 10/19/23 12/19/24 12/19/24 History hydrocodone 5 mg-acetaminophen 325 1 tab PO TID PRN Pain 06/13/24 12/19/24 12/24/24 History mg tablet duloxetine 60 mg capsule,delayed 60 mg PO DAILY #90 caps 06/28/24 12/19/24 12/24/24 Rx release (Cymbalta) hydroxychloroquine 200 mg tablet 200 mg PO DAILY #90 tabs 06/28/24 12/19/24 12/24/24 Rx leflunomide 10 mg tablet 10 mg PO DAILY #90 tabs 06/28/24 12/19/24 12/24/24 Rx pregabalin 150 mg capsule 150 mg PO TID #90 caps 06/28/24 12/19/24 12/24/24 Rx albuterol sulfate 90 mcg/actuation 2 puff inhalation QID PRN 10/31/24 12/19/24 12/24/24 Rx aerosol inhaler (Ventolin HFA) shortness of breath or wheezing #6.7 grams rosuvastatin 5 mg tablet 5 mg PO DAILY 12/19/24 12/19/24 12/24/24 History adalimumab 40 mg/0.8 mL 40 mg (0.8 mL) SUBCUT Q14D #2 ea 12/24/24 12/25/24 12/16/24 Rx subcutaneous pen kit (Humira Pen) Allergies Allergy/AdvReac Type Severity Reaction Status Date / Time Penicillins Allergy ALGY-Hives Verified 12/10/24 08:52 Sulfa (Sulfonamide Allergy ALGY-Hives Verified 12/10/24 08:52 Antibiotics) [facility] Anesthesia Medical History Hyperlipidemia Seronegative rheumatoid arthritis of both hands Osteoarthritis of knees, bilateral Immunization counseling High risk medication use Inflammatory arthritis COVID-19 04/2021 Polymyalgia rheumatica Lumbago with sciatica Surgical History History of tubal ligation No history of previous surgery Family History Father Cancer Colon cancer Sister Cancer Colon cancer Diabetes Mother Diabetes Rheumatoid arthritis Grandmother CAD (coronary artery disease) Other Psychiatric illness Denies family history of PMR (polymyalgia rheumatica) Lupus Hyperlipidemia Lung disease Hypertension Stroke Social History Smoking and tobacco/nicotine status: never used tobacco/nicotine Alcohol intake: never Substance/Drug Use: never Lives independently: Yes Household members: family Housing: House Marital status: / Data Anesthesia Cardiac Studies: Echocardiogram 11/25/23
[2024-12-25] MEDS: sodium chloride 0.9% 1,000 ML 15 ML IV (08:12)
--- NOTE | 2024-12-25 10:01 | W.PM.OPSUD ---
Surgery/Procedure H&P Update DATE OF PROCEDURE: December 25, 2024 DATE H&P PERFORMED: 12/10/24 H&P UPDATE INFORMATION: I have reviewed H&P completed within last 30 days, I have examined patient prior to procedure and No changes to prior documentation PLANNED PROCEDURE: Operation Date: 12/25/24 08:15 Proposed Procedures p Colonoscopy 44878 G0105 Z12.11(Not Applicable) - Rylan Harrington MD
[2024-12-25 10:17] VITALS: BP 111/76; PULSE 81; RESP 16; TEMP 36.1; O2SAT 96
[2024-12-25 10:31] VITALS: BP 110/78; PULSE 72; RESP 16; O2SAT 95
--- NOTE | 2024-12-25 10:45 | ANE.PACU2 ---
Inpatient post-anesthesia follow up: Airway intact: Yes Vital signs: Temperature 97.0 F Pulse Rate 72 Respiratory Rate 16 Blood Pressure 110/78 Pulse Oximetry 95 Oxygen Delivery Me thod Room Air Oxygen Flow Rate Fraction of Inspir ed Oxygen Hydration adequate: Yes Nausea and vomiting: No Pain level: 1 Mental status: Baseline
== END 2024-12-25 10:45 | disposition home or self-care (01) ==
PROVIDERS: PCP Nurse Practitioner Family; Visit Provider Student in an Organized Health Care Education/Training Program
PROC: 0DJD8ZZ Inspection of Lower Intestinal Tract, Via Natural or Artificial Opening Endoscopic (ICD-10-PCS; CPT 45378; principal; 2024-12-25 08:15)
DX: Z12.11 Encounter for screening for malignant neoplasm of colon (principal); E78.5 Hyperlipidemia, unspecified; M06.042 Rheumatoid arthritis without rheumatoid factor, left hand; M06.041 Rheumatoid arthritis without rheumatoid factor, right hand; K08.89 Other specified disorders of teeth and supporting structures; M35.3 Polymyalgia rheumatica; Z80.0 Family history of malignant neoplasm of digestive organs; Z79.899 Other long term (current) drug therapy; Z79.620 Long term (current) use of immunosuppressive biologic; Z88.0 Allergy status to penicillin; Z88.2 Allergy status to sulfonamides
CPT/HCPCS: 45378; J2704; J7030

== ENCOUNTER 2025-01-17 05:00 | Outpatient (CLI) | payer MEDICAID, SELFPAY | END 2025-01-17 05:01 | disposition home or self-care (01) | LOC: SPT 02-14 09:42 | PROVIDERS: Visit Provider Physician Assistant | DX: Z46.89 Encounter for fitting and adjustment of other specified devices (principal); S52.591D Other fractures of lower end of right radius, subsequent encounter for closed fracture with routine healing; X58.XXXD Exposure to other specified factors, subsequent encounter | CPT/HCPCS: L3908 ==

== ENCOUNTER → 2025-01-24 13:43 | Outpatient (BNVA) | payer MEDICAID, SELFPAY | PROVIDERS: PCP Nurse Practitioner Family; Visit Provider Internal Medicine Rheumatology | DX: M06.041 Rheumatoid arthritis without rheumatoid factor, right hand (principal); M06.042 Rheumatoid arthritis without rheumatoid factor, left hand; Z79.899 Other long term (current) drug therapy; Z71.89 Other specified counseling; M17.0 Bilateral primary osteoarthritis of knee | CPT/HCPCS: 99214 ==

== ENCOUNTER 2025-01-26 15:10 | Emergency (ER) | payer MEDICAID, SELFPAY ==
[2025-01-26 15:14] VITALS: BP 121/81; PULSE 89; RESP 20; TEMP 36.4; O2SAT 96
--- NOTE | 2025-01-26 15:18 | XRR_ITS ---
PROCEDURE INFORMATION: Exam: XR Left Wrist Exam date and time: 01/26/2025 3:23 PM Age: 60 years old Clinical indication: Injury or trauma; Fall; Blunt trauma (contusions or hematomas); Injury details: PT fell injuring her left wrist. Obvious swelling noted to area. TECHNIQUE: Imaging protocol: Radiologic exam of the left wrist. Views: 1 or 2 views. COMPARISON: No relevant prior studies available. FINDINGS: Bones/joints: Acute comminuted fracture of the distal radial metaphysis with intra-articular extension into the radiocarpal joint. Mild apex volar angulation. Mildly displaced ulnar styloid fracture. No dislocation. Soft tissues: Mild soft tissue swelling about the wrist. XR/XR wrist LT 2V [id number] IMPRESSION: 1. Acute comminuted distal radial metaphysis fracture with intra-articular extension. 2. Mildly displaced ulnar styloid fracture.
--- NOTE | 2025-01-26 15:48 | XRR_ITS ---
PROCEDURE INFORMATION: Exam: XR Left Elbow Exam date and time: 01/26/2025 4:02 PM Age: 60 years old Clinical indication: Injury or trauma; Fall; Blunt trauma (contusions or hematomas); Elbow; Left TECHNIQUE: Imaging protocol: Radiologic exam of the left elbow. Views: 3 or more views. COMPARISON: CR ( EX, ) 01/26/2025 3:23 PM FINDINGS: Bones/joints: Normal. Soft tissues: Normal. XR/XR elbow LT min 3V* [id number] IMPRESSION: No acute findings.
[2025-01-26] MEDS: HYDROcodone-acetaminophen 5-325 mg Tablet 1 TAB PO (16:00)
--- NOTE | 2025-01-26 16:25 | W.ED.EXTPRO ---
HPI - Extremity Problem General: Chief complaint: Extremity Injury, Upper Stated complaint: left wrist injury Time Seen by Provider: 01/26/25 15:14 Source: patient Mode of arrival: ambulatory Limitations: no limitations History of Present Illness: Patient is a 60-year-old female who presents the emergency department with left wrist pain status post fall just prior to arrival. Patient states that she was rollerskating, lost her balance and fell on an outstretched left hand, stating she was trying to catch herself. Notes swelling and pain radiating towards her elbow, has limited range of motion secondary to the pain. Mild deformity is noted, and she notes that her fingers are numb. Has not taken anything for pain prior to presentation, reporting severe pain at this time. No other injuries with the fall. Vitals unremarkable at this time. MD Complaint: joint swelling and joint pain Onset (ago): minute(s) Pain Consistency: constant Location: left and upper extremity (wrist) Severity scale (1-10): 10 Radiation: proximal Exacerbating factors: range of motion Associated symptoms: Deny chest pain, fever(s) or rash Related Data Home Medications ?Medication ?Instructions ?Recorded ?Confirmed hydrocodone 5 mg-acetaminophen 325 1 tab PO TID PRN Pain 06/13/24 01/26/25 mg tablet rosuvastatin 5 mg tablet 5 mg PO QPM 12/19/24 01/26/25 prednisone 20 mg tablet See Rx Instructions .Route .COMPLEX 01/26/25 01/26/25 Previous Rx's ?Medication ?Instructions ?Recorded albuterol sulfate 90 mcg/actuation 2 puff inhalation QID PRN 10/31/24 aerosol inhaler (Ventolin HFA) shortness of breath or wheezing #6.7 grams adalimumab 40 mg/0.8 mL 40 mg (0.8 mL) SUBCUT .Q7Day #4 ea 01/24/25 subcutaneous pen kit (Humira Pen) diclofenac sodium 1 % topical gel 4 g topical QID PRN Pain #100 grams 01/24/25 duloxetine 60 mg capsule,delayed 60 mg PO DAILY #90 caps 01/24/25 release (Cymbalta) hydroxychloroquine 200 mg tablet 200 mg PO DAILY #90 tabs 01/24/25 leflunomide 10 mg tablet 10 mg PO DAILY #90 tabs 01/24/25 pregabalin 150 mg capsule 150 mg PO TID #90 caps 01/24/25 Allergies Allergy/AdvReac Type Severity Reaction Status Date / Time Penicillins Allergy ALGY-Hives Verified 01/24/25 14:07 Sulfa (Sulfonamide Allergy ALGY-Hives Verified 01/24/25 14:07 Antibiotics) Review of Systems General: Reports: 10 or more systems reviewed and unremarkable except in HPI and below Const: Denies: fever(s) or chills Card: Denies: chest pain Resp: Denies: dyspnea or productive cough GI: Denies: abdominal pain, nausea, vomiting or diarrhea : Denies: flank pain Musc: Reports: joint pain, joint swelling and limited range of motion; Denies: neck pain, back pain, joint redness, joint warmth or muscle weakness Skin/Breast: Denies: rash Neuro: Denies: headache(s), numbness in extremities or weakness in extremities PFSH ED PFSH: Medical History Hyperlipidemia Seronegative rheumatoid arthritis of both hands Osteoarthritis of knees, bilateral Immunization counseling High risk medication use Inflammatory arthritis COVID-19 04/2021 Polymyalgia rheumatica Lumbago with sciatica Surgical History History of tubal ligation No history of previous surgery Family History Father Cancer Colon cancer Sister Cancer Colon cancer Diabetes Mother Diabetes Rheumatoid arthritis Grandmother CAD (coronary artery disease) Other Psychiatric illness Denies family history of PMR (polymyalgia rheumatica) Lupus Hyperlipidemia Lung disease Hypertension Stroke Social History Smoking and tobacco/nicotine status: never used tobacco/nicotine Alcohol intake: never Substance/Drug Use: never Lives independently: Yes Household members: family Housing: House Marital status: / Physical Exam Const: COMMON NORMALS: no acute distress, patient oriented x3, no limitations, healthy appearing, alert and well nourished HENMT: COMMON NORMALS: normocephalic and atraumatic HEAD & SCALP: normocephalic and atraumatic Neck/C-Spine: COMMON NORMALS: full ROM, supple and no meningeal signs Resp: COMMON NORMALS: normal respiratory effort, No use of accessory muscles and clear to auscultation bilaterally AUSCULTATION: clear to auscultation bilaterally Cardio: COMMON NORMALS: regular rate and regular rhythm RATE: regular rate RHYTHM: regular rhythm Extremity: COMMON NORMALS: capillary refill normal NARRATIVE EXTREMITY EXAM: Swelling and mild deformity noted to left wrist. Limited range of motion secondary to pain at the wrist as well as in the fingers. Mild tenderness to palpation of proximal left radius, the range of motion is normal at the elbow with flexion/extension. No skin tenting or color changes of the left wrist. Neuro: COMMON NORMALS: patient oriented x3, moves all extremities, no focal motor deficits and no sensory deficits noted SENSORIUM/ORIENTATION: Yes alert MENINGEAL SIGNS: Yes no meningeal signs Skin: COMMON NORMALS: no rashes or lesions noted GENERAL SKIN EXAM: no rashes or lesions noted Course Vital Signs: Vital signs: Vital Signs Temperature 97.5 F L 01/26/25 15:14 Pulse Rate 89 01/26/25 15:14 Respiratory Rate 20 H 01/26/25 15:14 Blood Pressure 121/81 01/26/25 15:14 Pulse Oximetry 96 01/26/25 15:14 MDM - Extremity (Nontraumatic) Medical Decision Making Patient presents after falling on outstretched left hand, mild deformity on examination with tender to palpation and limited range of motion due to pain. However neurovascular status noted to be intact, there was acute distal radial fracture as well as associated ulnar styloid fracture, though does not appear to need or would benefit from reduction here in the ED at this time. She will be placed in sugar-tong splint and sling for immobilization, with referral to orthopedist. She was given [place], notes significant decrease in her pain here. In addition an elbow x-ray was normal as she did note some proximal extension of the pain. Post splint neurovascular status is intact, and return precautions were given of which the patient verbalized understanding. Discharged at this time. Lab Data Radiology Impressions Wrist X-Ray 01/26/25 15:18 IMPRESSION: 1. Acute comminuted distal radial metaphysis fracture with intra-articular extension. 2. Mildly displaced ulnar styloid fracture. Elbow X-Ray 01/26/25 15:48 IMPRESSION: No acute findings. All radiology interpretation(s) finalized by discharge Discharge Plan Discharge Patient Disposition: Home Clinical Impression: Displaced fracture of left ulna styloid process, initial encounter for closed fracture Distal radius fracture, left Qualifiers: Encounter type: initial encounter Fracture type: closed Fracture morphology: unspecified fracture morphology Qualified Code(s): S52.502A - Unspecified fracture of the lower end of left radius, initial encounter for closed fracture Condition: Stable Prescriptions: No Action albuterol sulfate [Ventolin HFA] 90 mcg/actuation HFA aerosol inhaler 2 puff inhalation QID PRN (Reason: shortness of breath or wheezing) Qty: 6.7 0RF hydrocodone-acetaminophen 5-325 mg tablet 1 tab PO TID PRN (Reason: Pain) Patient Comments: Dr. Clint Winters Pen 40 mg/0.8 mL pen injector kit 40 mg SUBCUT .Q7 Qty: 4 5RF Rx Instructions: Sundays diclofenac sodium 1 % gel 4 g topical QID PRN (Reason: Pain) Qty: 100 1RF duloxetine [Cymbalta] 60 mg capsule,delayed release(DR/EC) 60 mg PO DAILY Qty: 90 1RF hydroxychloroquine 200 mg tablet 200 mg PO DAILY Qty: 90 1RF leflunomide 10 mg tablet 10 mg PO DAILY Qty: 90 1RF pregabalin 150 mg capsule 150 mg PO TID Qty: 90 5RF prednisone 20 mg tablet See Rx Instructions .ROUTE .COMPLEX Rx Instructions: Take 2 tablets (40mg) by mouth daily for 7 days as needed for arthritis or joint flare. rosuvastatin 5 mg tablet 5 mg PO QPM Discharge Orders: Discharge ED (Routine); Ordered 01/26/25 Ordered By: Emre Ruffin Referrals: Jana Avilez FNP [Primary Care Provider, Family Practice] Patient Instructions: Wrist Fracture in Adults (ED) Activity Restrictions/Additional Instructions: Splint and sling for immobilization, elevate at home to reduce swelling. Alternate Motrin and Tylenol for pain relief. Please follow-up with orthopedist early next week for further evaluation. Please return if pain severely worsens, develop any fever, or any other concerns you have. Print Language: Turkish Coding Level of Care Code ED Police Crime Scene Technician for Bert Smith
[2025-01-26 16:48] VITALS: BP 116/67; PULSE 78; O2SAT 95
--- NOTE | 2025-01-28 08:22 | DCPLANNER ---
messaged ortho for er f/u
== END 2025-01-26 16:53 | disposition home or self-care (01) ==
PROVIDERS: Emergency Provider Physician Assistant; PCP Nurse Practitioner Family
DX: S52.612A Displaced fracture of left ulna styloid process, initial encounter for closed fracture (principal); S52.502A Unspecified fracture of the lower end of left radius, initial encounter for closed fracture; E78.5 Hyperlipidemia, unspecified; W19.XXXA Unspecified fall, initial encounter
CPT/HCPCS: 29125; 73080; 73100; 99283; J9999

== ENCOUNTER → 2025-01-30 09:00 | Outpatient (BNVA) | payer MEDICAID, SELFPAY | PROVIDERS: PCP Nurse Practitioner Family; Visit Provider Physician Assistant | DX: M25.539 Pain in unspecified wrist (principal); M25.529 Pain in unspecified elbow; M25.532 Pain in left wrist; M25.522 Pain in left elbow; S52.502A Unspecified fracture of the lower end of left radius, initial encounter for closed fracture; W18.39XA Other fall on same level, initial encounter | CPT/HCPCS: 73080; 73110 ==

== ENCOUNTER 2025-02-01 11:20 | Day surgery (SDC) | payer MEDICAID, SELFPAY ==
[2025-02-01 11:52] VITALS: BP 157/99; PULSE 76; RESP 18; TEMP 36.3; O2SAT 95
[2025-02-01] MEDS: ketorolac 30 mg/mL INJ IVP (11:55)
[2025-02-01] MEDS: acetaminophen 1,000 MG/100 ML PIGGYBACK 400 MG IV (11:55)
[2025-02-01] MEDS: sodium chloride 0.9% 1,000 ML 30 ML IV (11:55)
--- NOTE | 2025-02-01 12:11 | ANES.PREANE2 ---
Pre-Anesthetic Assessment Height/Weight: Height 5 ft 10 in Temp Pulse Resp BP Pulse Ox O2 Del Method 97.4 F L 76 18 157/99 95 Room Air 02/01/25 11:52 02/01/25 11:52 02/01/25 11:52 02/01/25 11:52 02/01/25 11:52 02/01/25 11:52 Preop Diagnosis: Distal radius fracture Operation Date: 02/01/25 13:10 Proposed Procedures p ORIF Wrist ORIF Distal Radius(Left) - Joshua Venancio, DO Was Beta Justin taken within 24 hours: N/A Was Clonidine taken within 24 hours: N/A Last intake: Intake Last Liquid Date 01/31/25 Last Liquid Time 21:00 Last Solid Date 01/31/25 Last Solid Time 21:00 Social No alcohol and No tobacco Exam alert, oriented x 3, clear to auscultation bilaterally and regular rate & rhythm Airway Submandibular: within normal limits Cervical ROM: within normal limits Mallampati: Class III Comments: Comments: Edentulous Anesthetic Plan ASA status: 3 Anesthesia: Choice and Regional (specify below) Other: No prior issues with anesthesia NPO since yesterday evening Patient has a history of polymyalgia rheumatica and rheumatoid arthritis, on chronic adalimumab Denies any cardiac or pulmonary issues Stage III CKD Labs reviewed from November and for procedure Echo performed in 2023 showing EF of 65% Plan for preop nerve block with MAC anesthesia Medications/Allergies Home Medications ?Medication ?Instructions ?Recorded ?Confirmed ?Last Taken ?Type hydrocodone 5 mg-acetaminophen 325 1 tab PO TID PRN Pain 06/13/24 01/31/25 01/31/25 History mg tablet albuterol sulfate 90 mcg/actuation 2 puff inhalation QID PRN 10/31/24 01/31/25 01/31/25 Rx aerosol inhaler (Ventolin HFA) shortness of breath or wheezing #6.7 grams rosuvastatin 5 mg tablet 5 mg PO QPM 12/19/24 01/31/25 01/30/25 History adalimumab 40 mg/0.8 mL 40 mg (0.8 mL) SUBCUT .Q7Day #4 ea 01/24/25 01/31/25 01/27/25 Rx subcutaneous pen kit (Humira Pen) diclofenac sodium 1 % topical gel 4 g topical QID PRN Pain #100 grams 01/24/25 01/31/25 01/31/25 Rx duloxetine 60 mg capsule,delayed 60 mg PO DAILY #90 caps 01/24/25 01/31/25 01/31/25 Rx release (Cymbalta) hydroxychloroquine 200 mg tablet 200 mg PO DAILY #90 tabs 01/24/25 01/31/25 01/31/25 Rx leflunomide 10 mg tablet 10 mg PO DAILY #90 tabs 01/24/25 01/31/25 01/31/25 Rx pregabalin 150 mg capsule 150 mg PO TID #90 caps 01/24/25 01/31/25 01/31/25 Rx prednisone 20 mg tablet 40 mg PO DAILY 01/26/25 01/31/25 Unknown History left volar fast form #1 ea 01/30/25 01/30/25 Unknown Rx Allergies Allergy/AdvReac Type Severity Reaction Status Date / Time Penicillins Allergy ALGY-Hives Verified 01/30/25 08:31 Sulfa (Sulfonamide Allergy ALGY-Hives Verified 01/30/25 08:31 Antibiotics) Current Medications Generic Name Dose Route Start Last Admin Trade Name Freq PRN Reason Stop Dose Admin Sodium Chloride 1,000 mls @ 30 mls/hr 02/01/25 11:30 02/01/25 11:55 Sodium Chloride 0.9% IV 02/02/25 11:29 30 mls/hr .Q24H JIM Administration PFSH Anesthesia Medical History Hyperlipidemia Seronegative rheumatoid arthritis of both hands Osteoarthritis of knees, bilateral Immunization counseling High risk medication use Inflammatory arthritis COVID-19 04/2021 Polymyalgia rheumatica Lumbago with sciatica Surgical History History of tubal ligation No history of previous surgery Family History Father Cancer Colon cancer Sister Cancer Colon cancer Diabetes Mother Diabetes Rheumatoid arthritis Grandmother CAD (coronary artery disease) Other Psychiatric illness Denies family history of PMR (polymyalgia rheumatica) Lupus Hyperlipidemia Lung disease Hypertension Stroke Social History Smoking and tobacco/nicotine status: never used tobacco/nicotine Alcohol intake: never Substance/Drug Use: never Lives independently: Yes Household members: family Housing: House Marital status: / Data Anesthesia Cardiac Studies: Echocardiogram 11/25/23
--- NOTE | 2025-02-01 12:46 | ANES.PROC ---
Anesthesia Procedures Procedure/Date: 02/01/25 Nerve Block ^: Nerve Block 1: Main Anesthesia: other (100 mcg fentanyl and 2 mg Versed) Time Out Performed: Yes Consent: requested by attending/covering physician and from patient Nerve block location: supraclavicular Anesthesia monitors applied: pulse oximetry, EKG, BP cuff and oxygen Nerve block position: supine Anesthetic Used: ropivicaine 0.5% Amount of anesthesia used (mL): 30 Ultrasound used to: recognize landmarks Nerve Stimulator Used?: Yes Interscalene/Femoral BLK: other needle (pjunk 4inch) Injection: neg aspiration of heme Patient Tolerated Procedure: well Complications: none Additional Comments: Decadron 4 mg added to the block
--- NOTE | 2025-02-01 12:47 | PC.NURSE ---
1234 1234: Patient placed on monitor and 2lpm via nasal cannula , time out performed . using ultrasound guidance left upper extremity/shoulder block performed by cameron. 30 ml 0.5% ropivicaine injected. Patient tolerated procedure well, images printed
--- NOTE | 2025-02-01 12:59 | W.PM.OPSUD ---
Surgery/Procedure H&P Update DATE OF PROCEDURE: February 01, 2025 DATE H&P PERFORMED: 01/30/25 H&P UPDATE INFORMATION: I have reviewed H&P completed within last 30 days, I have examined patient prior to procedure and No changes to prior documentation PREOP DIAGNOSIS: Left distal radius fracture displaced and angulated PRIMARY INDICATION FOR PROCEDURE: Left distal radius fracture displaced and angulated PLANNED PROCEDURE: Operation Date: 02/01/25 13:10 Proposed Procedures p ORIF Wrist ORIF Distal Radius(Left) - Joshua Craft DO
[2025-02-01 13:03] VITALS: BP 144/86; PULSE 72; RESP 18; TEMP 36.1; O2SAT 95
[2025-02-01] MEDS: clindamycin 900 MG/50 ML PREMIX 100 MG IV (13:07)
--- NOTE | 2025-02-01 14:39 | W.PM.BPON ---
Date of Procedure: 02/01/2025 Surgeon: Joshua Craft DO [employer] Cell Assembly Supervisor(s): None Procedure(s) performed: Left distal radius open reduction internal fixation (3 part intra-articular) Left distal radial ulnar joint percutaneous pinning Findings of the procedure(s): Patient was found to have comminuted three-part intra-articular fracture underwent distal radius ORIF splint without issues or complications did have a large radial styloid fracture fragment for better fixation of this this was then pinned transversely to help Rafter the joint while holding reduction and was advanced across the DRUJ joint to fix the DRUJ joint to increase construct rigidity as well as to hold distal radius radial styloid fracture fragment. This was held in neutral position while fixation was performed to the DRUJ joint. Patient tolerated well without issue or complication patient volar splint taken to PACU in stable condition. Estimated blood loss: 10 mL Specimen(s) removed: None Post-operative diagnosis: Left distal radius fracture displaced and angulated intra-articular three-part
--- NOTE | 2025-02-01 14:42 | P.OP_ITS ---
Operative Report Date of procedure: February 01, 2025 Surgeon: Joshua Craft DO Procedure: Preop Diagnosis ?Left?distal?radius fracture ? Procedure: Post-op diagnosis: Same, 3 part intra-articular Procedure done: Left distal radius open reduction internal fixation (3 part intra-articular) Left distal radial ulnar joint percutaneous pinning Implants: ?Arthrex left 3-hole standard volar locking plate Combination of locking and nonlocking screws 2.7 mm?distal Combination of locking and nonlocking screws 3.5 mm proximal Surgeon: Joshua Craft DO Anesthesia: General and nerve Block (Regional) Estimated blood loss: 10 mL Tourniquet time: 49 minutes IV fluids: See anesthesia record Complications: None Findings: See operative report narrative Condition: stable Disposition: same day Brief History: Patient is a 60-year-old female who presented to my office for a [id number] left?distal?radius fracture.? Patient has significant comminution and shortening as well as dorsal angulation patient active and at this point time through shared decision making patient like to proceed with a left?distal?radius?ORIF.? We had a detailed discussion in the office about nonoperative and operative intervention.? At this point time I feel through shared decision? best option would be open reduction internal fixation she is active and already has a considerable deformity?? as result through shared decision making patient would like to proceed with?ORIF?left?distal?radius fracture.? Detail the risk benefits complication alternatives to treatment option.? Understanding risk for surgery patient elects to proceed with surgical intervention.? All questions been answered at this time. Procedure: Patient seen and evaluated in the preoperative holding area.? Consent reviewed and signed with patient.? Correct extremities were marked and consent was rev iewed and signed.? Patient was seen and evaluated by anesthesia department.? Underwent regional anesthesia. Once cleared for surgery pt was taken back to the operative suite.? Patient was then transported into the operative suite and kept on the OR gurney, all bony prominences well-padded patient was appropriate secured to bed in supine position.? An armboard was applied to the left upper extremity.? The left upper extremity had a nonsterile tourniquet applied.? Patient subsequently was then prepped and draped in standard orthopedic fashion she underwent anesthesia per the anesthesia department.? A final timeout was performed.? Patient received appropriate preoperative antibiotics. Esmarch was used exsanguinate the left upper extremity and tourniquet was insufflated to 250 mmHg. A standard modified FCR volar approach was performed to the left?distal?radius.? Sharp scalpel incision through skin and subcutaneous tissue.? I then switched to Littler dissection scissors identify the FCR tendon releases out of the sheath both proximally and?distally mobilized the tendon ulnarly and then subsequently incised the floor of the FCR tendon sheath with care to just incise the floor.? I then bluntly sweep the FPL tendon muscle belly ulnarly and placed blunt self- retaining retractor.? At this point time I direct visualization of the pronator quadratus which was incised in standard L fashion off the?radial and?distal?border in the?distal?radius and fracture site was scraped clean of interposed muscle belly.? I then identified the 3 part intra- articular?distal?radius fracture.? This was subsequently opened above and freed of interposing muscle belly as well as periosteum and fracture hematoma.? I did have to utilize my [place] which was placed through the fracture pattern and disengage the fracture and performed manual manipulation and anatomic reduction of the?distal?radius fracture.? Patient had a complex fracture pattern with an isolated radial styloid fracture fragment as well as fragmentation of the volar ulnar corner. I utilized a [place] to disengage all these fracture fragments as well as release periosteum along the radial styloid to attain mobility. Originally pinned this from the radial styloid across the fracture fragment and then achieved my reduction manually restoring normal volar tilt. ?Once satisfied with reduction and had appropriate anatomic reduction of the volar cortex.? This was confirmed with mini C arm in multiple orthogonal imaging.? At this point time? I selected a Arthrex anatomic?distal?radius plate utilizing a standard 3-hole plate which would have appropriate spread?distally.? This was then placed up to the?distal?radius while maintaining my reduction, pins were placed?distally and proximally to confirm appropriate placement of the plate along the?distal?radius.? Minor adjustments were made and once I was satisfied I then subsequently drilled a bicortical 3.5 screw proximally in the oblong hole to allow for appropriate sliding of the?distal?radius plate appropriately to perfect position on the?distal?radius.? This had excellent fixation and purchase and brought the plate to bone.? While maintaining my reduction I then confirmed in multiple orthogonal imaging that my plate was in appropriate position.? Once satisfied with my position I then subsequently placed the peek targeting guide on the?distal?locking screws with Arthrex.? The locking guide was then subsequently loaded and I subsequently drilled and placed a fully threaded cortical screw to compress the plate to bone for the?distal?fracture fragment.? This was performed with plan to then remove this and placed a shorter locking screw had bicortical fixation with excellent purchase and appropriate reduction of my volar tilt and bringing plate to bone of the?distal?fragment and plate.? Once I was satisfied with my plate position as well as reduction of the?distal?radius which was confirmed on AP oblique and lateral imaging I then subsequently drilled measured and placed 3 locking screws around this cortical screw.? At this point in time I did appreciate that the radial styloid fragment slightly had a step-off as result of a remove the styloid pin as well as my styloid screw and then achieved manipulation bring this up against the bone and then subsequently did a rafting screw from radial to ulnar right under the subchondral surface while maintaining my reduction under direct visualization. At this point I was satisfied this and then subsequently placed 2 additional screws on the radial aspect of the plate into the radial styloid fracture fragme nt which had good fixation. Then I subsequently removed the cortical screw and placed a shorter locking screw that did not penetrate the dorsal cortex.?? This completed my?distal?fixation.? I did utilize mini C arm to confirm appropriate placement of the screws these were all within the?distal?radius and no joint involvement within the?radiocarpal joint or the DRUJ.? These had appropriate subchondral support and maintenance of reduction and fixation of the?distal?radius fracture.? ?I then turned my attention proximally and then I screwed in the locking guides for my final to screws proximally these were then subsequently drilled measured and appropriate length locking screws were then placed proximally with excellent fixation and locking technology into the plate.? This completed my construct.? The peek guide was subsequently removed and final imaging of the left?distal?radius open reduction internal fixation was taken of AP lateral as well and is orthogonal imaging.? I then took a inclination view which showed my?radial styloid screw was out of the penetration of the joint.? All my?distal?screws were appropriate length did not penetrate dorsal cortex and did not penetrate the joint.? This completed my fixation.? Smooth wrist range of motion was then noted with no evidence of clicking. Wrist was then taken through pronation supination and stressed the DRUJ. There is subtle instability in order to increase my fracture fixation with my styloid pin I subsequently advanced this across the DRUJ joint while holding this in neutral position holding good reduction this was advanced for increased fixation and DRUJ stability. Plan will be to pull the pin in 4 weeks. Subsequently then clamped bent cut and capped the radial styloid pin. The wound was then thoroughly irrigated.? Tourniquet was then subsequently deflated.? Hemostasis satisfactory with bipolar electrocautery.? I then subsequently placed interrupted 3-0 Vicryl sutures for subcutaneous tissue and then subsequently placed a nylon the skin for closure.? Incision was then dressed with Xeroform 4 x 4's Kerlix cast padding and a volar Ortho-Glass splint was then applied with Mook wrap and placed in a sling.? Disposition: Patient taken to PACU in stable condition recovering well receive appropriate discharge instructions as well as pain medication postoperatively.? Maintain splint until follow-up.? Nonweightbearing to operative upper extremity We will follow-up with Dr. Craft in the office in 2 weeks.? If any questions or concerns feel free to contact the office.
[2025-02-01 14:48] VITALS: BP 119/65; PULSE 71; RESP 18; TEMP 36.1; O2SAT 95
[2025-02-01 14:53] VITALS: BP 126/72; PULSE 80; RESP 18; O2SAT 96
[2025-02-01 14:58] VITALS: BP 155/95; PULSE 74; RESP 18; O2SAT 95
[2025-02-01 15:03] VITALS: BP 144/86; PULSE 71; RESP 18; TEMP 36.1; O2SAT 96
--- NOTE | 2025-02-01 15:47 | ANE.PACU2 ---
Inpatient post-anesthesia follow up: Airway intact: Yes Vital signs: Temperature 97.0 F Pulse Rate 71 Respiratory Rate 18 Blood Pressure 144/86 Pulse Oximetry 96 Oxygen Delivery Me thod Room Air Oxygen Flow Rate 8 Fraction of Inspir ed Oxygen Hydration adequate: Yes Nausea and vomiting: No Pain level: 1 Mental status: Baseline
== END 2025-02-01 15:47 | disposition home or self-care (01) ==
PROVIDERS: PCP Nurse Practitioner Family; Visit Provider Student in an Organized Health Care Education/Training Program
PROC: (CPT 25609; principal; 2025-02-01 13:00)
DX: S52.572A Other intraarticular fracture of lower end of left radius, initial encounter for closed fracture (principal); S52.612A Displaced fracture of left ulna styloid process, initial encounter for closed fracture; N18.30 Chronic kidney disease, stage 3 unspecified; E78.5 Hyperlipidemia, unspecified; M35.3 Polymyalgia rheumatica; M06.042 Rheumatoid arthritis without rheumatoid factor, left hand; M06.041 Rheumatoid arthritis without rheumatoid factor, right hand; Z79.620 Long term (current) use of immunosuppressive biologic; Z79.899 Other long term (current) drug therapy; Z88.2 Allergy status to sulfonamides; Z88.0 Allergy status to penicillin; W18.30XA Fall on same level, unspecified, initial encounter
CPT/HCPCS: 25609; 25652; C1713 ×2; J0131; J1885; J2704; J3490; J7030; J9999

== ENCOUNTER → 2025-02-13 14:54 | Outpatient (BNVA) | payer MEDICAID, SELFPAY | PROVIDERS: PCP Nurse Practitioner Family; Visit Provider Physician Assistant | DX: Z98.890 Other specified postprocedural states (principal); Z87.81 Personal history of (healed) traumatic fracture; Z46.89 Encounter for fitting and adjustment of other specified devices | CPT/HCPCS: 73110 ==

== ENCOUNTER 2025-02-24 16:11 | Emergency (ER) | payer MEDICAID, SELFPAY ==
[2025-02-24 16:16] VITALS: BP 127/85; PULSE 76; RESP 16; TEMP 36.3; O2SAT 93; BMI 22.9
--- NOTE | 2025-02-24 16:26 | XRR_ITS ---
PROCEDURE INFORMATION: Exam: XR Left Wrist Exam date and time: 02/24/2025 4:30 PM Age: 60 years old Clinical indication: Pain; Wrist; Left; Additional info: Lt wrist pain post fall TECHNIQUE: Imaging protocol: Radiologic exam of the left wrist. Views: 3 or more views. COMPARISON: 1. CR (UP EXM, ) 01/26/2025 3:23 PM 2. CR XR wrist LT min 3V* [id number] 02/13/2025 3:03 PM 3. CR XR wrist LT min 3V* [id number] 01/30/2025 9:01 AM FINDINGS: Bones/joints: There is comminuted intra-articular fracture of the distal left radius status post open reduction internal fixation with metallic hardware. Compared with postoperative examination 02/13/2025, the appearance of the distal left radius and the associated hardware is unchanged. There is also a tiny avulsion fracture of the tip of the ulnar styloid unchanged. Soft tissues: Swelling noted. XR/XR wrist LT min 3V* [id number] IMPRESSION: Stable appearance of distal left radius fracture status post internal fixation with metallic hardware
--- NOTE | 2025-02-24 16:30 | ED_ITS ---
HPI - Extremity Problem General: Chief complaint: Extremity Injury, Upper Stated complaint: fall, L arm pain Time Seen by Provider: 02/24/25 16:15 Source: patient Mode of arrival: ambulatory Limitations: no limitations History of Present Illness: 60-year-old female who had had wrist chris sanjana on her left wrist roughly a month ago. States she had fell going up the stairs today and landed on her wrist she is having some pain over the ulnar portion of the left wrist rates the pain 4-10 currently no other injuries from the fall Associated symptoms: Deny chest pain, fever(s) or rash Related Data Home Medications ?Medication ?Instructions ?Recorded ?Confirmed rosuvastatin 5 mg tablet 5 mg PO QPM 12/19/24 5 prednisone 20 mg tablet 40 mg PO DAILY 01/26/2505/13 hydrocodone 5 mg-acetaminophen 325 1 tab PO Q6H PRN Pa in 02/24/25 02/24/25 mg tablet Previous Rx's ?Medication ?Instructions ?Recorded albuterol sulfate 90 mcg/actuation 2 puff inhalation Q ID PRN 10/31/24 aerosol inhaler (Ventolin HFA) shortness of breath or wheezing #6.7 grams adalimumab 40 mg/0.8 mL 40 mg (0.8 mL) SUBCUT .Q7Day #4 ea 01/24/25 subcutaneous pen kit (Humira Pen) Held on 02/01/25. Instructions: Resume on 02/15/25. diclofenac sodium 1 % topical gel 4 g topical QID PRN Pain #100 grams 01/24/25 duloxetine 60 mg capsule,delayed 60 mg PO DAILY #90 ca ps 01/24/25 release (Cymbalta) hydroxychloroquine 200 mg tablet 200 mg PO DAILY #90 t abs 01/24/25 leflunomide 10 mg tablet 10 mg PO DAILY #90 tabs 05/13 pregabalin 150 mg capsule 150 mg PO TID #90 caps 01/24 left volar fast form #1 ea 01/30/25 calcium 600 mg (as 1 tab PO DAILY Bone health a nd 02/01/25 carbonate)-vitamin D3 10 mcg (400 healing 30 days #30 tabs unit) tablet (Calcium 600 + D(3)) custom volar splint #1 ea 02/13/25 Allergies Allergy/AdvReac Type Severity Reaction Status Date / Time Penicillins Allergy ALGY-Hives Verified 02/13/25 15:27 Sulfa (Sulfonamide Allergy ALGY-Hives Verified 02/13/25 15:27 Antibiotics) Review of Systems Const: Denies: fever(s), chills, body aches or change in appetite ENMT: Denies: throat pain or dental pain Card: Denies: chest pain Resp: Denies: dyspnea GI: Denies: abdominal pain, nausea, vomiting or diarrhea Musc: Reports: extremity pain; Denies: neck pain or back pain Skin/Breast: Denies: rash Neuro: Denies: headache(s) PFSH ED PFSH: Medical History Hyperlipidemia Seronegative rheumatoid arthritis of both hands Osteoarthritis of knees, bilateral Immunization counseling High risk medication use Inflammatory arthritis COVID-19 04/2021 Polymyalgia rheumatica Lumbago with sciatica Surgical History History of tubal ligation No history of previous surgery Family History Father Cancer Colon cancer Sister Cancer Colon cancer Diabetes Mother Diabetes Rheumatoid arthritis Grandmother CAD (coronary artery disease) Other Psychiatric illness Denies family history of PMR (polymyalgia rheumatica) Lupus Hyperlipidemia Lung disease Hypertension Stroke Social History Smoking and tobacco/nicotine status: never used tobacco/nicotine Alcohol intake: never Substance/Drug Use: never Lives independently: Yes Household members: family Housing: House Marital status: / Physical Exam Const: COMMON NORMALS: no acute distress, patient oriented x3 and healthy appearing HENMT: COMMON NORMALS: normocephalic and atraumatic HEAD & SCALP: normocephalic and atraumatic Neck/C-Spine: COMMON NORMALS: full ROM and supple Chest: COMMONS NORMALS: normal inspection of the chest Resp: COMMON NORMALS: normal respiratory effort Cardio: COMMON NORMALS: regular rate RATE: regular rate Extremity: COMMON NORMALS: normal to inspection and full ROM NARRATIVE EXTREMITY EXAM: Some slight tenderness to left wrist has pin in place from previous surgery no obvious deformity neurovascular intact Neuro: COMMON NORMALS: patient oriented x3, moves all extremities and no focal motor deficits Psych: COMMON NORMALS: mental status grossly normal, Normal thought process present and cooperative THOUGHT PROCESS: Normal thought process present Skin: COMMON NORMALS: no rashes or lesions noted and no wounds GENERAL SKIN EXAM: no rashes or lesions noted Course Vital Signs: Vital signs: Vital Signs Temperature 97.4 F L 02/24/25 16:16 Pulse Rate 76 02/24/25 16:16 Respiratory Rate 16 02/24/25 16:16 Blood Pressure 127/85 02/24/25 16:16 Pulse Oximetry 93 02/24/25 16:16 Oxygen Delivery Me thod Room Air 02/24/25 16:16 MDM - Extremity (Nontraumatic) Medical Decision Making Patient presents here with wrist injury after fall she did have recent surgery do not see any new fractures on x-ray. She is to wear her cock up splint follow-up with her orthopedist Dr. Craft as scheduled on Tuesday Medical Records I reviewed the patient's medical records. XR interpretation done by ED provider, pending radiology final review ED provider radiology interpretation(s): xr L wrist: no acute fx Discharge Plan Discharge Patient Disposition: Home Clinical Impression: Left wrist injury Condition: Stable Prescriptions: No Action albuterol sulfate [Ventolin HFA] 90 mcg/actuation HFA aerosol inhaler 2 puff inhalation QID PRN (Reason: shortness of breath or wheezing) Qty: 6.7 0RF Humira Pen 40 mg/0.8 mL pen injector kit 40 mg SUBCUT .Q7 Qty: 4 5RF Rx Instructions: Sundays diclofenac sodium 1 % gel 4 g topical QID PRN (Reason: Pain) Qty: 100 1RF duloxetine [Cymbalta] 60 mg capsule,delayed release(DR/EC) 60 mg PO DAILY Qty: 90 1RF hydroxychloroquine 200 mg tablet 200 mg PO DAILY Qty: 90 1RF leflunomide 10 mg tablet 10 mg PO DAILY Qty: 90 1RF pregabalin 150 mg capsule 150 mg PO TID Qty: 90 5RF (DME) left volar fast form See Rx Instructions .Route .MEDSUPPLY Qty: 1 0RF Rx Instructions: [place] [place] custom volar splint See Rx Instructions .Route .MEDSUPPLY Qty: 1 0RF Rx Instructions: As directed prednisone 20 mg tablet 40 mg PO DAILY Rx Instructions: Take 2 tablets (40mg) by mouth daily for 7 days as needed for arthritis or joint flare. rosuvastatin 5 mg tablet 5 mg PO QPM calcium carbonate-vitamin D3 [Calcium 600 + D(3)] 600 mg-10 mcg (400 unit) tablet 1 tab PO DAILY 30 Days Qty: 30 0RF hydrocodone-acetaminophen 5-325 mg tablet 1 tab PO Q6H PRN (Reason: Pain) Discharge Orders: Discharge ED (Routine); Ordered 02/24/25 Ordered By: Radha Haile Referrals: Jana Avilez FNP [Primary Care Provider, Family Practice] Joshua Craft DO [Physician, Orthopedics] - 4-7 days Discharge Diet: Advance as tolerated Discharge Activity: Resume usual activity Patient Instructions: Wrist Injury (ED) Print Language: Divehi Coding Level of Care Code ED Family And Divorce Legal Assistant for Bert Smith
[2025-02-24 16:57] VITALS: BP 122/78; PULSE 77; O2SAT 95
== END 2025-02-24 17:17 | disposition home or self-care (01) ==
PROVIDERS: Emergency Provider Emergency Medicine; PCP Nurse Practitioner Family
DX: S69.92XA Unspecified injury of left wrist, hand and finger(s), initial encounter (principal); E78.5 Hyperlipidemia, unspecified; M06.042 Rheumatoid arthritis without rheumatoid factor, left hand; M06.041 Rheumatoid arthritis without rheumatoid factor, right hand; W10.9XXA Fall (on) (from) unspecified stairs and steps, initial encounter; Z79.899 Other long term (current) drug therapy
CPT/HCPCS: 73110; 99283

== ENCOUNTER → 2025-02-27 14:52 | Outpatient (BNVA) | payer MEDICAID, SELFPAY | PROVIDERS: PCP Nurse Practitioner Family; Visit Provider Physician Assistant | DX: Z98.890 Other specified postprocedural states (principal); S52.502D Unspecified fracture of the lower end of left radius, subsequent encounter for closed fracture with routine healing; X58.XXXD Exposure to other specified factors, subsequent encounter | CPT/HCPCS: 73110 ==

== ENCOUNTER 2025-03-06 12:34 | Outpatient (RCR) | payer MEDICAID, SELFPAY | END 2025-03-18 23:59 | disposition home or self-care (01) | LOC: SOT 12:34 | PROVIDERS: Visit Provider Physician Assistant | DX: S52.502A Unspecified fracture of the lower end of left radius, initial encounter for closed fracture (principal); X58.XXXA Exposure to other specified factors, initial encounter | CPT/HCPCS: 97165 ==

== ENCOUNTER → 2025-04-09 09:38 | Outpatient (BNVA) | payer MEDICAID, SELFPAY | PROVIDERS: PCP Nurse Practitioner Family; Visit Provider Physician Assistant | DX: Z98.890 Other specified postprocedural states (principal); S52.502D Unspecified fracture of the lower end of left radius, subsequent encounter for closed fracture with routine healing; X58.XXXD Exposure to other specified factors, subsequent encounter | CPT/HCPCS: 73110 ==

== ENCOUNTER 2025-05-24 08:06 | Outpatient (CLI) | payer MEDICAID, SELFPAY ==
--- NOTE | 2025-05-24 08:45 | US_ITS ---
WS: [id number] RIGHT UPPER QUADRANT ULTRASOUND HISTORY: R10.11 - Right upper quadrant pain COMPARISON: None available. Liver: 15.4 cm in length. Normal size liver and echogenicity. No bile duct dilatation or mass. Portal Vein: Normal hepatopetal flow with monophasic waveform. Gallbladder: Nondistended gallbladder with stones. No wall thickening. No pericholecystic fluid. CBD: 0.7 cm Pancreas: As visualized negative. Right kidney: 11.0 cm in length. Normal size and echogenicity. No hydronephrosis or mass. Aorta and IVC: Unremarkable abdominal aorta and IVC. No ascites. US/US gall bladder [id number] IMPRESSION: 1. Cholelithiasis without evidence for acute cholecystitis. 2. Common bile duct is measuring just greater than normal. Similar findings no kenyatta on a prior CT of 08/31/2021. No intrahepatic duct dilatation.
== END 2025-05-24 08:07 | disposition home or self-care (01) ==
LOC: RAD 08:07
PROVIDERS: PCP Nurse Practitioner Family; Visit Provider Nurse Practitioner Family
DX: K80.20 Calculus of gallbladder without cholecystitis without obstruction (principal)
CPT/HCPCS: 76705

== ENCOUNTER 2025-05-31 18:10 | Inpatient (IN) | payer MEDICAID, SELFPAY ==
[2025-05-31] VITALS (7 sets, daily range): BP systolic 107–154; BP diastolic 71–85; PULSE 72–76; RESP 16–18; TEMP 36.5–36.7; O2SAT 94–97; BMI 25.9; BMI 22.8
--- OUTSIDE RECORDS SUMMARY | 2025-05-31 18:14 | XMS_ITS | Clinical Summary ---
Author Organization [facility] Address [address] [place]: Epic Prelude ADT [place] [id number] Care Team Providers Care Presentation Team Member Name Role Phone Abdiel Waters NP Primary Care Provider Allergies Active Allergy Reactions Criticality Noted Date Comments Penicillins Swelling Low 04/06/2015 Sulfa (Sulfonamide Antibiotics) Hives High 06/19 Started 12/2018 Medications celecoxib (CeleBREX) 50 mg capsule Take 25 mg by mouth daily. 07/03/2019 Active triamcinolone acetonide (KENALOG) 0.5 % Cream Apply to affected area 2 times daily. 15 Gram 1 03/13/2017 Active menthol/zinc oxide (GOLD JAMIL MEDICATED TOPICAL) Apply to affected area 1 time daily as needed. 03/13/2017 Active traMADoL 5 mg/mL Solution Take by mouth. 11/03/2021 Active Farxiga 10 mg Tablet Take 10 mg by mouth daily in the morning. 02/24/2024 Active pregabalin (LYRICA) 150 mg Capsule Take 1 Capsule by mouth 3 times daily. 02/27/2024 Active leflunomide (ARAVA) 10 mg tablet Take 1 Tablet by mouth daily. 02/23/2024 Active DULoxetine (CYMBALTA) 60 mg Capsule, Delayed Release(E.C.) Take 1 Capsule by mouth daily. 01/31/2024 Active hydroxychloroqu ine (PLAQUENIL) 200 mg tablet Take 1 Tablet by mouth daily. 02/23/2024 Active Humira Pen 40 mg/0.8 mL Pen Injector Kit 03/19/2024 Active Active Problems Problem Noted Date Diagnosed Date Closed displaced fracture of acromial end of right clavicle, DOI 01/23/2024 03/30/2024 Sprain of coracoclavicular l igament of right shoulder, DOI 01/23/2024 03/30/2024 Encounters Date Type Department Care Team Description 03/12/2025 External Device Data [facility] ABSTRACTION Provider, Abstract from Last 3 Months Social History Tobacco Use Types Packs/Day Years Used Date Smoking Tobacco: Never Smokeless Tobacco: Never Tobacco Cessation:Counseling Given: Not Answered Alcohol Use Standard Drinks/Week Comments No 0 (1 standard drink = 0.6 oz pur e alcohol) Feeling Safe Answer Date Recorded Are you in a relationship wi th someone who hurts you emotionally and/or physically? No 01/23/2024 Comments Unknown Sex and Gender Information Value Date Recorded Sex Assigned at Not on file Legal Sex Female 9:12 AM [employer] Gender Identity Not on file Sexual Orientation Not on file Last Filed Vital Signs Vital Sign Reading Time Taken Comments Blood Pressure 148/70 04/10/2024 2:51 PM CDT Pulse 89 01/23/2024 11:00 PM CDT Temperature 36.1 C (96.9 F) 01/23/2024 9:57 PM CDT Respiratory Rate 18 01/23/2024 11:00 PM CDT Oxygen Saturation 95% 01/23/2024 11:00 PM CDT Inhaled Oxygen Concentration - - Weight 78.2 kg (172 lb 8 oz) 04/10/2024 2:51 PM CDT Height 175.3 cm (5' 9 ) 04/10/2024 2:51 PM CDT Body Mass Index 25.47 04/10/2024 2:51 PM CDT Plan of Treatment Health Maintenance Due Date Last Done Comments DTAP/TDAP/TD VACCINES (1 - Tdap) 1982 ZOSTER VACCINE (1 of 2) 1982 HPV/Cotest (21-29) 01/03/1984 CERVICAL CANCER SCREENING 1993 HPV/Cotest (30-65) 1993 PAP SMEAR 1993 BREAST CANCER SCREENING 2003 COLORECTAL SCREENING 01/03/2008 Colorectal Cancer Screening 01/03/2008 FIT-DNA Q 3 years 01/03/2008 FIT/FOBT Q 1 year 01/03/2008 Flex Sig/CT Colonography Q 5 years 01/03/2008 RSV VACCINE (60+ or ) (1 - Risk 60-74 years 1-dose series) 2023 INFLUENZA VACCINE (#1) 2025 Insurance [employer] EXCHANGE ME Care Teams Presentation Team Member Relationship Specialty Start Date End Date Abdiel Waters NP [address] [place] [phone] PCP - General NURSE PRACTITIONER 07/03/19
--- OUTSIDE RECORDS SUMMARY | 2025-05-31 18:14 | XMS_ITS | Patient Health Record ---
Author Organization [facility] Address [address] [place] [address] Care Team Providers Care Supercalender Operator Helper Name Role Phone Jana Avilez APRN Primary Care Provider Eloisa Guzman Unavailable Mervin Collado Unavailable Unavailable Allergies Allergen (clinical drug ingredient) Drug/Non Drug Allergy documented on EMR Reaction Allergy Type Onset Date Status Sulfur hives Drug Allergy Active menthol Biofreeze rash Drug Allergy Active Penicillin rash Drug Allergy Active Results Component Value Reference Range Flag Notes Urine Drug Screen (cup read) - 70053 Reviewed date:04/16/2025 11:52:41 AM Interpretation: Performing Lab: Notes/Report: BZO + OPI + Urine Confirmation Panel (in strument) - [id number] Reviewed date:05/03/2025 02:45:55 PM Interpretation: Performing Lab: Notes/Report: 6-Acetylmorphine 0 <6 ng/mL N This sherry t was developed and its performance characteristics determined by [facility]. It has not been cleared or approved by the U.S. Food and Drug Administration. 7-Aminoclonazepam 0 <60 ng/mL N This te st was developed and its performance characteristics determined by [facility]. It has not been cleared or approved by the U.S. Food and Drug Administration. Alprazolam 0 <60 ng/mL N This test was developed and its performance characteristics determined by [facility]. It has not been cleared or approved by the U.S. Food and Drug Administration. Amphetamine 0 <75 ng/mL N This test was developed and its performance characteristics determined by [facility]. It has not been cleared or approved by the U.S. Food and Drug Administration. aOH-Alprazolam 0 <60 ng/mL N This test was developed and its performance characteristics determined by [facility]. It has not been cleared or approved by the U.S. Food and Drug Administration. Buprenorphine 0.0 <7.5 ng/mL N This test w as developed and its performance characteristics determined by [facility]. It has not been cleared or approved by the U.S. Food and Drug Administration. Norbuprenorphine 0.0 <37.5 ng/mL N This te st was developed and its performance characteristics determined by [facility]. It has not been cleared or approved by the U.S. Food and Drug Administration. Carisoprodol 0 <75 ng/mL N This test wa s developed and its performance characteristics determined by [facility]. It has not been cleared or approved by the U.S. Food and Drug Administration. Codeine 0 <75 ng/mL N This test was developed and its performance characteristics determined by [facility]. It has not been cleared or approved by the U.S. Food and Drug Administration. EDDP 0 <75 ng/mL N This test was developed and its performance characteristics determined by [facility]. It has not been cleared or approved by the U.S. Food and Drug Administration. Fentanyl 0 <6 ng/mL N This test was developed and its performance characteristics determined by [facility]. It has not been cleared or approved by the U.S. Food and Drug Administration. Hydrocodone >5000 <75 ng/mL > This test was developed and its performance characteristics determined by [facility]. It has not been cleared or approved by the U.S. Food and Drug Administration. Hydromorphone 1399 <75 ng/mL H This test w as developed and its performance characteristics determined by [facility]. It has not been cleared or approved by the U.S. Food and Drug Administration. Lorazepam 0 <60 ng/mL N This test was developed and its performance characteristics determined by [facility]. It has not been cleared or approved by the U.S. Food and Drug Administration. MDMA 0 <75 ng/mL N This test was developed and its performance characteristics determined by [facility]. It has not been cleared or approved by the U.S. Food and Drug Administration. Meperidine 0.0 <37.5 ng/mL N This test was developed and its performance characteristics determined by [facility]. It has not been cleared or approved by the U.S. Food and Drug Administration. Meprobamate 0 <75 ng/mL N This test was developed and its performance characteristics determined by [facility]. It has not been cleared or approved by the U.S. Food and Drug Administration. Methamphetamine 0 <75 ng/mL N This test was developed and its performance characteristics determined by [facility]. It has not been cleared or approved by the U.S. Food and Drug Administration. Methadone 0 <75 ng/mL N This test was developed and its performance characteristics determined by [facility]. It has not been cleared or approved by the U.S. Food and Drug Administration. Morphine 0 <75 ng/mL N This test was developed and its performance characteristics determined by [facility]. It has not been cleared or approved by the U.S. Food and Drug Administration. Nordiazepam 0 <60 ng/mL N This test was developed and its performance characteristics determined by [facility]. It has not been cleared or approved by the U.S. Food and Drug Administration. Norfentanyl 0 <6 ng/mL N This test was developed and its performance characteristics determined by [facility]. It has not been cleared or approved by the U.S. Food and Drug Administration. Normeperidine 0.0 <37.5 ng/mL N This test was developed and its performance characteristics determined by [facility]. It has not been cleared or approved by the U.S. Food and Drug Administration. O-desmethyltramadol 0 <75 ng/mL N This test was developed and its performance characteristics determined by [facility]. It has not been cleared or approved by the U.S. Food and Drug Administration. Oxazepam 0 <60 ng/mL N This test was developed and its performance characteristics determined by [facility]. It has not been cleared or approved by the U.S. Food and Drug Administration. Oxycodone 0.0 <37.5 ng/mL N This test was developed and its performance characteristics determined by [facility]. It has not been cleared or approved by the U.S. Food and Drug Administration. Oxymorphone 0 <75 ng/mL N This test was developed and its performance characteristics determined by [facility]. It has not been cleared or approved by the U.S. Food and Drug Administration. Phencyclidine 0.0 <7.5 ng/mL N This test w as developed and its performance characteristics determined by [facility]. It has not been cleared or approved by the U.S. Food and Drug Administration. Tapentadol 0.0 <37.5 ng/mL N This test was developed and its performance characteristics determined by [facility]. It has not been cleared or approved by the U.S. Food and Drug Administration. Temazepam 0 <60 ng/mL N This test was developed and its performance characteristics determined by [facility]. It has not been cleared or approved by the U.S. Food and Drug Administration. Tramadol 0 <75 ng/mL N This test was developed and its performance characteristics determined by [facility]. It has not been cleared or approved by the U.S. Food and Drug Administration. Norhydrocodone >5000 <75 ng/mL > This test was developed and its performance characteristics determined by [facility]. It has not been cleared or approved by the U.S. Food and Drug Administration. Noroxycodone 0 <38 ng/mL N This test wa s developed and its performance characteristics determined by [facility]. It has not been cleared or approved by the U.S. Food and Drug Administration. Pregabalin >23747 <225 ng/mL > This test was developed and its performance characteristics determined by [facility]. It has not been cleared or approved by the U.S. Food and Drug Administration. Gabapentin 147 <225 ng/mL N This test was developed and its performance characteristics determined by [facility]. It has not been cleared or approved by the U.S. Food and Drug Administration. Benzoylecgonine 0.0 <37.5 ng/mL N This sherry t was developed and its performance characteristics determined by [facility]. It has not been cleared or approved by the U.S. Food and Drug Administration. 4-Hydroxy Xylazine 0 <25 ng/mL N This t est was developed and its performance characteristics determined by [facility]. It has not been cleared or approved by the U.S. Food and Drug Administration. 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) Referring Provider First Name Jana Referring Provider Last Name Fatmata Referring Provider Speciality Nurse Prac titioner Referred Organization [facility] Referred Provider Francisco J Jeff Referred Address [address] [facility],[address] Referred Provider Specialty Pain Medicin e General Notes Araceli Macedo 03:46:29 PM >Schedluled and mailed NPP Referral Priority Routine Medications Medication SIG (Take, Route, Frequency, Duration) Notes Start Date End Date Status DULoxetine HCl 60 MG Capsule Delayed Release Particles 1 capsule Orally Once a day Active Rosuvastatin Calcium 5 MG Tablet 1 tablet Orally Once a day Active Hydroxychloroquine Sulfate 200 MG Tablet as directed Orally Active predniSONE 20 MG Tablet 1 tablet with fo od or milk Orally Once a day Active Pregabalin 150 MG Capsule 1 capsule Oral ly Once a day Active HYDROcodone-Acetaminophen 5-325 MG Tablet 1 tablet as needed Orally every 4-6 hrs; Duration: 28 days As needed Not to exceed 3 per day fill 05/23/25 04/16/2025 06/20/2025 Active HYDROcodone-Acetaminophen 5-325 MG Tablet 1 tablet as needed Orally every 6 hrs Active Humira (2 Pen) 40 MG/0.4ML Auto-injector Kit 0.4 mL Subcutaneous Active Methocarbamol 750 MG Tablet 1 tablet Orally 3 times a day; Duration: 30 days 04/16/2025 Active Vitamin D3 25 MCG (1000 UT) Capsule 1 capsule Orally Once a day Active Fish Oil 1200 MG Capsule 1 capsule Orall y Once a day Active Social History Tobacco Use: Social History Observation Description Date Details (start date - stop date) Never Smoker NA - NA Social History Tobacco Use: Social Info Question Answer Notes Tobacco Control (Standard) Tobacco use: Nonsmoker Additional Details Category Social Info Options Details Miscellaneous: Sexually active: no Sexual abuse: no Drugs/Alcohol: Do you smoke marijuana? De nies Do you drink alcohol? No Problems Problem Type SNOMED Code ICD Code Onset Dates Problem Status W/U Status Risk Notes Problem Chronic pain syndrome (748676742) Chronic pain syndrome (G89.4) Active confirmed Problem Lumbosacral spondylosis without myelopathy (19449435) Spondylosis of lumbosacral region without myelopathy or radiculopathy (M47.817) Active confirmed Problem Myalgia (00081509) Myalgia (M79.10) Active confirmed Problem Rheumatoid arthritis (14289132) Rheumatoid arthritis (M06.9) Active confirmed Problem Lumbosacral spondylosis without myelopathy (39636277) Lumbosacral radiculopathy due to degenerative joint disease of spine (M47.27) Active confirmed Problem Lumbosacral radiculopathy (6800960) Lumbosacral radiculopathy (M54.17) Active confirmed Procedures Procedure Date Ordered Date Performed Result Body Sit e Epidural, Transforaminal, Britney mbar/Sacral, 2 or more levels - 43246, 99437 05/29/2025 05/29/2025- Conscious Sedation, Professi onal Only - 52769 05/29/2025 05/29/2025 N/A Encounters Encounter Location Date Provider Diagnosis Formerly [facility] [place] [address] [place] [address] 04/16/2025 Eloisa Velazquez-Bandar e Chronic pain syndrome G89.4 ; Lumbosacral radiculopathy due to degenerative joint disease of spine M47.27 ; Myalgia M79.10 ; Rheumatoid arthritis M06.9 ; [facility] (current) use of opiate analgesic Z79.891 ; Spondylosis of lumbosacral region without myelopathy or radiculopathy M47.817 and Lumbosacral radiculopathy M54.17 Formerly [facility] [address] [address] 05/29/2025 Eloisa Velazquez-Bandar e Lumbosacral radiculopathy M54.17 Assessments Encounter Date Diagnosis (ICD Code) Assessment Notes Treatment Notes Treatment Clinical Notes Section Notes 05/29/2025 Lumbosacral radiculopathy (ICD-10 - M54.17) 04/16/2025 Chronic pain syndrome (ICD-10 - G89.4) Ms. Arriaga is a very pleasant patient and former Dr. Collado patient with lumbosacral spondylosis mediated pain status post rhizotomies with Dr. Burden. Positive Francis's on examination today. She's not interested in getting her medial branch RFTC repeated, and I suspect that they were actually beneficial for her. She denies any side effects on her current medications to include Hydrocodone 5/325 mg up to three tablets per day. I reviewed her MRI with her using a 3D model. She would benefit from bilateral L4/5 TFESI with sedation. We'll continue her Hydrocodone 5/325 mg up to three tablets a day as well as Robaxin 750 mg #90. We'll see her back in four weeks with the nurse practitioner for reevaluation. 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 Patient has tried conservative measures including medication with limited benefit including medications to include gabapentin if they could tolerate it and physical therapy including home exercise regimen under a physician's guidance for at least 6 weeks. They have had a decrease in their quality of life as a result of this pain. This pain is impairing their ability to perform ADLs and care for their family. This pain is also interfering with their ability to work. They now have had to increase their medication use. It is medically necessary to proceed with this procedure, risks and expectations of the procedure were discussed with the patient and they agreed to proceed. The options for treatment were explained in detail, this included PT, medications, injections, lifestyle modifications and exercise. Proceed with bilateral L4/L5 transforaminal epidural steroid injection with sedation The aforementioned procedure is medically necessary to be performed with minimal sedation. This sedation is necessary to ensure patient comfort and cooperation, while also minimizing anxiety and discomfort. 04/16/2025 Other I, Tasha Szymanski, am scribing for Dr. Marques. I, Dr. Marques, personally performed the services described in this documentation, as scribed by Tasha Szymanski, and it is both accurate and complete. RECOMMEND URINE TESTING TODAY Urine drug screening will be performed today to monitor compliance with opioid therapy or to serve as a baseline screen for a patient who may be a candidate for opioid therapy in the future, pending UDS results. We will monitor with in-office testing (rapid testing) today and review the results prior to dispensing prescription. All positive results will be sent for quantitative analysis to ensure accuracy and quantify amounts. Any expected positive results that return negative will also be sent for quantitative analysis. Any questionable read or any medication we cannot test for in the office confidently will be sent for quantitative analysis, as well. Patient has been made aware of this policy and agrees to abide by our urine testing policy. Plan Of Treatment Next Appt Details Provider Name:Yasmine Colleen hendricks, 06/27/2025 02:40:00 PM, [address] [place], [address], Insurance Providers Payer Name Payer Address Payer Phone Subscriber Number Group Number Insured Name Patient Relationship to Insured Coverage Start Date Coverage End Date [facility] Medicaid Replacement [address] [place] [address] [phone] [id number] Jana Arriaga Self - patient is the insured [place] Medicaid [address] [place] [address] [id number] [phone] [id number] Jana Arriaga Self - patient is the insured Medical (General) History Medical History History ICD Code High Blood Pressure Arthritis fibromyalgia neuropathy Surgical History Surgery Date(Month/Year) nerve block broken wrist surgery
--- OUTSIDE RECORDS SUMMARY | 2025-05-31 18:14 | XMS_ITS | Clinical Summary ---
Author Organization [facility] Address [address] [facility] [address] [place] [address] Phone Care Team Providers Care Form Grader Name Role Phone Abdiel Waters NP Primary Care Provider Allergies Active Allergy Reactions Criticality Noted Date Comments Penicillins Swelling Low 04/06/2015 Sulfa (Sulfonamide Antibiotics) Hives High 06/19 Started 12/2018 Medications diphenhydrAMINE (BENADRYL) 25 mg tablet Take 50 mg by mouth every 6 hours as needed for Allergies. Active MENTHOL/ZINC OXIDE (GOLD JAMIL MEDICATED TOPICAL) Apply to affected area 1 time daily as needed. Active triamcinolone acetonide (KENALOG) 0.5 % Cream Apply to affected area 2 times daily. 15 Gram 1 03/13/2017 Active celecoxib (CeleBREX) 50 mg capsule Take 25 mg by mouth daily. Active ondansetron (ZOFRAN) 4 mg Tablet Take 1 Tablet (4 mg) by mouth every 8 hours as needed for Nausea. Dispense from ER for use at home until pharmacy opens. 2 Tablet 07/03/2019 Active ondansetron (ZOFRAN) 4 mg Tablet Take 1 Tablet (4 mg) by mouth every 8 hours as needed for Nausea. 4 Tablet 07/03/2019 Active milnacipran (SAVELLA) 25 mg tablet Take 25 mg by mouth 2 times daily. Active Social History Tobacco Use Types Packs/Day Years Used Date Smoking Tobacco: Never Smokeless Tobacco: Never Alcohol Use Standard Drinks/Week Comments No 0 (1 standard drink = 0.6 oz pur e alcohol) Comments No Sex and Gender Information Value Date Recorded Sex Assigned at Not on file Legal Sex Female 7:54 PM CDT Gender Identity Not on file Sexual Orientation Not on file Last Filed Vital Signs Vital Sign Reading Time Taken Comments Blood Pressure 110/68 07/03/2019 11:45 PM CDT Pulse 87 07/03/2019 8:54 PM CDT Temperature 36.8 C (98.2 F) 07/03/2019 11:45 PM CDT Respiratory Rate 20 07/03/2019 11:45 PM CDT Oxygen Saturation 98% 07/03/2019 11:45 PM CDT Inhaled Oxygen Concentration - - Weight 65.4 kg (144 lb 4 oz) 07/03/2019 7:50 PM CDT Height 175.3 cm (5' 9 ) 07/03/2019 7:50 PM CDT Body Mass Index 21.3 07/03/2019 7:50 PM CDT Plan of Treatment Health Maintenance Due Date Last Done Comments DTAP/TDAP/TD VACCINES (1 - Tdap) 1982 HPV/Cotest (21-29) 01/03/1984 CERVICAL CANCER SCREENING 1993 HPV/Cotest (30-65) 1993 PAP SMEAR 1993 BREAST CANCER SCREENING 2003 COLORECTAL SCREENING 01/03/2008 Colorectal Cancer Screening 01/03/2008 FIT-DNA Q 3 years 01/03/2008 FIT/FOBT Q 1 year 01/03/2008 Flex Sig/CT Colonography Q 5 years 01/03/2008 ZOSTER VACCINE (1 of 2) 2013 INFLUENZA VACCINE (#1) 2025 RSV VACCINE (60+ or ) (1 - 1-dose 75+ series) 2038 Insurance [employer] Care Teams Form Grader Relationship Specialty Start Date End Date Abdile Waters [employer] [address] [place] [phone] PCP - General NURSE PRACTITIONER 07/03/19
--- NOTE | 2025-05-31 18:23 | XRR_ITS ---
PROCEDURE INFORMATION: Exam: XR Left Hip Exam date and time: 05/31/2025 6:29 PM Age: 60 years old Clinical indication: Injury or trauma; Fall; Blunt trauma (contusions or hematomas); Left; Hip; Additional info: Fall L hip pain TECHNIQUE: Imaging protocol: Radiologic exam of the left hip. Views: 2 or 3 views hip with pelvis when performed. COMPARISON: CT abdomen pelvis w con* [id number] 08/31/2021 3:17 PM FINDINGS: Bones/joints: Mildly displaced left femoral neck fracture. Alignment is otherwise intact. No other fractures are identified. Soft tissues: The soft tissues are within normal limits. XR/XR hip LT 2-3V wo/w pel* [id number] IMPRESSION: Mildly displaced left femoral neck fracture.
--- NOTE | 2025-05-31 18:33 | W.ED.FALL ---
HPI - Fall General: Chief Complaint: Fall Stated Complaint: fall - left hip pain Time Seen by Provider: 05/31/25 18:11 History of Present Illness: Patient is a 60-year-old female who presents with left hip pain after tripping over her son's black Labrador approximately one hour prior to arrival. She reports falling and landing directly on her left hip. Patient states she is unable to bear weight on the affected extremity due to pain. She localizes the pain primarily to the lateral aspect of the hip and groin area. Pain is exacerbated with internal and external rotation of the hip. Patient denies head injury, neck pain, or other associated injuries. She has received some pain medication prior to examination, which she reports is starting to wear off. Of note, patient reports a previous fall down a flight of stairs approximately 20 years ago affecting the same hip. Related Data Home Medications ?Medication ?Instructions ?Recorded ?Confirmed rosuvastatin 5 mg tablet 5 mg PO QPM 12/19/24 05/31/25 hydrocodone 5 mg-acetaminophen 325 1 tab PO Q6H PRN Pain 02/24/25 05/31/25 mg tablet Previous Rx's ?Medication ?Instructions ?Recorded adalimumab 40 mg/0.8 mL 40 mg (0.8 mL) SUBCUT .Q7Day #4 ea 01/24/25 subcutaneous pen kit (Humira Pen) Held on 02/01/25. Instructions: Resume on 02/15/25. diclofenac sodium 1 % topical gel 4 g topical QID PRN Pain #100 grams 01/24/25 duloxetine 60 mg capsule,delayed 60 mg PO DAILY #90 caps 01/24/25 release (Cymbalta) hydroxychloroquine 200 mg tablet 200 mg PO DAILY #90 tabs 01/24/25 leflunomide 10 mg tablet 10 mg PO DAILY #90 tabs 01/24/25 pregabalin 150 mg capsule 150 mg PO TID #90 caps 01/24/25 left volar fast form #1 ea 01/30/25 custom volar splint #1 ea 02/13/25 left wrist cock up brace #1 ea 04/09/25 pantoprazole 40 mg tablet,delayed 40 mg PO DAILY #30 tabs 05/17/25 release (Protonix) Allergies Allergy/AdvReac Type Severity Reaction Status Date / Time Penicillins Allergy ALGY-Hives Verified 05/17/25 15:00 Sulfa (Sulfonamide Allergy ALGY-Hives Verified 05/17/25 15:00 Antibiotics) PFSH ED PFSH: Medical History (Updated 05/31/25 @ 22:50 by Sebastian Gonzales DO) Hyperlipidemia Seronegative rheumatoid arthritis of both hands Osteoarthritis of knees, bilateral Immunization counseling High risk medication use Inflammatory arthritis COVID-19 04/2021 Polymyalgia rheumatica Lumbago with sciatica Surgical History History of tubal ligation No history of previous surgery Family History Father Cancer Colon cancer Sister Cancer Colon cancer Diabetes Mother Diabetes Rheumatoid arthritis Grandmother CAD (coronary artery disease) Other Psychiatric illness Denies family history of PMR (polymyalgia rheumatica) Lupus Hyperlipidemia Lung disease Hypertension Stroke Social History Smoking and tobacco/nicotine status: never used tobacco/nicotine Alcohol intake: never Substance/Drug Use: never Lives independently: Yes Household members: family Housing: House Marital status: / Physical Exam Const: COMMON NORMALS: no acute distress GENERAL APPEARANCE: cooperative; not ill appearing and not frail appearing HENMT: COMMON NORMALS: normocephalic, atraumatic and Normal external nose present HEAD & SCALP: normocephalic and atraumatic FACE & SINUS: normal facial exam and face symmetric NOSE: Normal external nose present Eye: COMMON NORMALS: Equal, round and reactive pupils present and EOMs intact bilaterally PUPIL: Yes Equal, round and reactive pupils present Neck/C-Spine: GENERAL: Yes trachea midline Chest: CHEST: Yes Symmetrical chest wall rise Resp: COMMON NORMALS: normal respiratory effort, No retractions, No use of accessory muscles and clear to auscultation bilaterally AUSCULTATION: clear to auscultation bilaterally Cardio: COMMON NORMALS: regular rate and regular rhythm RATE: regular rate RHYTHM: regular rhythm GI: COMMON NORMALS: Normal to inspection, nondistended, normoactive bowel sounds present Extremity: COMMON NORMALS: no pedal edema NARRATIVE EXTREMITY EXAM: Exam of the left lower extremity reveals tenderness over the lateral hip and less so to the anterior hip. There is no shortening or external rotation deformity. There is pain with logroll testing. There is pain with RENATO testing. Pulses and sensation are intact distally. Neuro: ESTHELA COMA SCALE: document GCS findings Esthela coma scale eye opening: Spontaneous Esthela coma scale verbal response: Orientated Esthela coma scale motor response: Obey commands Esthela coma scale total score: 15 SENSORY EXAM: Yes extremities (intact) Psych: COMMON NORMALS: speech normal SPEECH: Yes normal speech Skin: COMMON NORMALS: no rashes or lesions noted GENERAL SKIN EXAM: no rashes or lesions noted Course Vital Signs: Vital signs: Vital Signs Temperature 98.1 F 05/31/25 18:14 Pulse Rate 76 05/31/25 21:22 Respiratory Rate 18 05/31/25 21:47 Blood Pressure 107/71 05/31/25 21:22 Pulse Oximetry 97 05/31/25 21:47 Oxygen Delivery Me thod Room Air 05/31/25 21:37 MDM - Fall Medical Decision Making Spoke to orthopedics. They agree to consult on the patient. Spoke with hospitalist, she has seen the patient in the ER and will admit. Patient is stable at this time. Lab Data 05/31/25 19:59 05/31/25 19:59 Radiology Impressions Hip/Pelvis X-Ray 05/31/25 18:23 IMPRESSION: Mildly displaced left femoral neck fracture. Chest X-Ray 05/31/25 18:56 IMPRESSION: No acute cardiopulmonary disease. Laboratory Results WBC 7.89 10^3/uL (3.29-11.43) 05/31/25 19:59 RBC 4.20 10^6/uL (3.85-5.65) 05/31/25 19:59 Hgb 11.40 g/dL (11.27-16.99) 05/31/25 19:59 Hct 34.9 % (36-47) L 05/31/25 19:59 MCV 83.1 fl (85-98) L 05/31/25 19:59 MCH 27.1 pg (27-33) 05/31/25 19:59 MCHC 32.7 g/dL (30-55) 05/31/25 19:59 RDW 13.9 % (12.1-15.1) 05/31/25 19:59 Plt Count 326 10^3/cmm (157-399) 05/31/25 19:59 MPV 11.2 fL (7.4-10.4) H 05/31/25 19:59 Neut % (Auto) 67.2 % 05/31/25 19:59 Lymph % (Auto) 18.5 % 05/31/25 19:59 Hudson % (Auto) 11.7 % 05/31/25 19:59 Eos % (Auto) 1.3 % 05/31/25 19:59 Baso % (Auto) 0.8 % 05/31/25 19:59 Neut # (Auto) 5.31 10^3/uL (1.8-7.7) 05/31/25 19:59 Lymph # (Auto) 1.5 10^3/uL (0.8-4.8) 05/31/25 19:59 Hudson # (Auto) 0.9 10^3/uL (0.2-0.9) 05/31/25 19:59 Eos # (Auto) 0.1 10^3/uL (0.0-0.8) 05/31/25 19:59 Baso # (Auto) 0.1 10^3/uL (0.0-0.1) 05/31/25 19:59 Nucleated RBC % (auto) 0 % 05/31/25 19:59 Nucleated RBCs # 0.0 /100WBC 05/31/25 19:59 PT 12.70 SECONDS (12.1-14.9) 05/31/25 19:59 INR 0.89 (0.8-1.2) 05/31/25 19:59 APTT 26.8 SECONDS (23.9-36.7) 05/31/25 19:59 Sodium 137 mmol/L (136-145) 05/31/25 19:59 Potassium 4.1 mmol/L (3.5-5.1) 05/31/25 19:59 Chloride 103 mmol/L (98-107) 05/31/25 19:59 Carbon Dioxide 24 mmol/L (22-29) 05/31/25 19:59 Anion Gap 14.1 (5-19) 05/31/25 19:59 BUN 15 mg/dL (8-23) 05/31/25 19:59 Creatinine 0.8 mg/dL (0.5-0.9) 05/31/25 19:59 GFR Calculation 72.7 mL/min (90-130) L 05/31/25 19:59 Glucose 116 mg/dL (65-115) H 05/31/25 19:59 Calculated Osmolality 286 mOsm/kg (285-295) 05/31/25 19:59 Calcium 8.8 mg/dL (8.5-10.5) 05/31/25 19:59 Magnesium 2.0 mg/dL (1.7-2.3) 05/31/25 19:59 Total Bilirubin 0.2 mg/dL (0.15-1.2) 05/31/25 19:59 AST 12 U/L (0-32) 05/31/25 19:59 ALT 8 U/L (0-33) 05/31/25 19:59 Alkaline Phosphatase 102 U/L (35-105) 05/31/25 19:59 Creatine Kinase 38 U/L (26-192) 05/31/25 19:59 Total Protein 7.0 g/dL (6.6-8.7) 05/31/25 19:59 Albumin 3.6 g/dL (3.5-5.2) 05/31/25 19:59 Globulin 3.4 g/dL (1.3-4.6) 05/31/25 19:59 All radiology interpretation(s) finalized by discharge Discharge Plan Discharge Patient Disposition: Admitted As Inpatient Admit Provider: Liane Galindo Clinical Impression: Closed left hip fracture Condition: Stable Coding Level of Care Code 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
--- NOTE | 2025-05-31 18:56 | XRR_ITS ---
PROCEDURE INFORMATION: Exam: XR Chest Exam date and time: 05/31/2025 6:35 PM Age: 60 years old Clinical indication: Pre-operative exam; Respiratory screening exam; Additional info: Lt hip FX; Pre operative clearance TECHNIQUE: Imaging protocol: Radiologic exam of the chest. Views: 1 view. COMPARISON: CR XR chest 2V* [id number] 05/19/2021 12:15 PM FINDINGS: Lungs: No pulmonary consolidation. Pleural spaces: No pleural effusion or pneumothorax. Heart/Mediastinum: Heart size is within normal limits. Bones/joints: No acute osseous abnormalities are seen. XR/XR chest 1V portable [id number] IMPRESSION: No acute cardiopulmonary disease.
--- NOTE | 2025-05-31 18:59 | ECG_ITS ---
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
[2025-05-31] MEDS: ondansetron 2 mg/ML SDV 2 mL 4 MG IVP (19:18)
[2025-05-31] MEDS: morphine 4 mg/mL SDV 1 mL IVP ×2 (19:19→21:47)
[2025-05-31 20:13] LABS: Hematocrit 34.9 % (36-47); Hemoglobin 11.40 g/dL (11.27-16.99); Mean Corpuscular HGB Conc 32.7 g/dL (30-55); Mean Corpuscular Hemoglobin 27.1 pg (27-33); Mean Corpuscular Volume 83.1 fl (85-98); Nucleated Red Blood Cells % 0 %; Platelet Count 326 10^3/cmm (157-399); Red Blood Count 4.20 10^6/uL (3.85-5.65); White Blood Count 7.89 10^3/uL (3.29-11.43)
[2025-05-31 20:25] LABS: INR 0.89 (0.8-1.2); Partial Thromboplastin Time 26.8 SECONDS (23.9-36.7); Prothrombin Time 12.70 SECONDS (12.1-14.9)
[2025-05-31 20:31] LABS: Alanine Aminotransferase 8 U/L (0-33); Albumin Level 3.6 g/dL (3.5-5.2); Alkaline Phosphatase 102 U/L (35-105); Anion Gap 14.1 (5-19); Aspartate Amino Transferase 12 U/L (0-32); Blood Urea Nitrogen 15 mg/dL (8-23); Calcium 8.8 mg/dL (8.5-10.5); Carbon Dioxide 24 mmol/L (22-29); Chloride 103 mmol/L (98-107); Creatinine Clr Calc Pharmacy 82.4754; Globulin 3.4 g/dL (1.3-4.6); Glucose 116 mg/dL (65-115); Magnesium 2.0 mg/dL (1.7-2.3); Osmolality Calculated 286 mOsm/kg (285-295); Potassium 4.1 mmol/L (3.5-5.1); Sodium 137 mmol/L (136-145); Total Protein 7.0 g/dL (6.6-8.7)
[2025-05-31 21:04] LABS: Glucose Urine UA Negative (Normal); Nitrate Urine Negative (Negative); Specific Gravity, Urine 1.022 (1.005-1.030)
[2025-05-31 21:07] LABS: Add Urine Microscopic? YES
--- NOTE | 2025-05-31 21:37 | P.HP_ITS ---
Providers/Chief Complaint 2 Admitting Physician: Liane Galindo MD--- I have seen patient before 12 midnight Primary Care Provider: YADIEL Bui Chief Complaint: fall - left hip pain History of Present Illness Jana Arriaga is a 60 year old female with medical history significant for hyperlipidemia multiple fractures in the past seronegative rheumatoid arthritis osteoarthritis polymyalgia rheumatica, patient has sustained a mechanical fall after a dog in the house ran underneath her causing her to fall on her left hip. Patient fractured. Patient came to the emergency room in pain and for care and evaluation of the hip. Patient is noted to have left hip fracture. Orthopedics Dr. Rodney Madrid had been consulted for repair of the left hip. Patient is n.p.o. after midnight should be able to follow through with hip fracture repair tomorrow. Medically patient is cleared for surgery chest x-ray did not have any heart failure EKG were unremarkable. Patient is on room air hemodynamically stable with blood pressures heart rate and respiration pulse oxing at 99% on room air. Review of Systems 2 Narrative: System review upon 10 organ review we are remarkable for musculoskeletal disorder due to fracture of the left hip otherwise system review at this particular time is noted to be unremarkable. Medications/Allergies Home Medications ?Medication ?Instructions ?Recorded ?Confirmed ?Last Taken ?Type rosuvastatin 5 mg tablet 5 mg PO QPM 12/19/24 5 02/23/25 History adalimumab 40 mg/0.8 mL 40 mg (0.8 mL) SUBCUT .Q7Day #4 ea 01/24/25 05/17/25 01/27/25 Rx subcutaneous pen kit (Humira Pen) Held on 02/01/25. Instructions: Resume on 02/15/25. diclofenac sodium 1 % topical gel 4 g topical QID PRN Pain #100 grams 01/24/25 05/17/25 01/31/25 Rx duloxetine 60 mg capsule,delayed 60 mg PO DAILY #90 ca ps 01/24/25 05/17/25 02/24/25 Rx release (Cymbalta) hydroxychloroquine 200 mg tablet 200 mg PO DAILY #90 t abs 01/24/25 05/17/25 02/24/25 Rx leflunomide 10 mg tablet 10 mg PO DAILY #90 tabs 05/1305/17/25 02/24/25 Rx pregabalin 150 mg capsule 150 mg PO TID #90 caps 01/2405/17/25 02/24/25 Rx left volar fast form #1 ea 01/30/25 05/17/25 Unkn own Rx custom volar splint #1 ea 02/13/25 05/17/25 Unkn own Rx hydrocodone 5 mg-acetaminophen 325 1 tab PO Q6H PRN Pa in 02/24/25 05/17/25 02/24/25 History mg tablet left wrist cock up brace #1 ea 04/09/25 05/17/25 Unkn own Rx pantoprazole 40 mg tablet,delayed 40 mg PO DAILY #30 t abs 05/17/25 05/17/25 Unknown Rx release (Protonix) Allergies Allergy/AdvReac Type Severity Reaction Status Date / Time Penicillins Allergy ALGY-Hives Verified 05/17/25 15:00 Sulfa (Sulfonamide Allergy ALGY-Hives Verified 05/17/25 15:00 Antibiotics) PFSH Acute 2 PFSH: Medical History Hyperlipidemia Seronegative rheumatoid arthritis of both hands Osteoarthritis of knees, bilateral Immunization counseling High risk medication use Inflammatory arthritis COVID-19 04/2021 Polymyalgia rheumatica Lumbago with sciatica Surgical History History of tubal ligation No history of previous surgery Family History Father Cancer Colon cancer Sister Cancer Colon cancer Diabetes Mother Diabetes Rheumatoid arthritis Grandmother CAD (coronary artery disease) Other Psychiatric illness Denies family history of PMR (polymyalgia rheumatica) Lupus Hyperlipidemia Lung disease Hypertension Stroke Social History Smoking and tobacco/nicotine status: never used tobacco/nicotine Alcohol intake: never Substance/Drug Use: never Lives independently: Yes Household members: family Housing: House Marital status: / Vitals/I&O/Wt Last Vital Signs Temp 98.1 F 05/31/25 18:14 Pulse 76 05/31/25 21:22 Resp 17 05/31/25 19:19 BP 107/71 05/31/25 21:22 Pulse Ox 95 05/31/25 21:22 O2 Del Method Room Air 05/31/25 20:30 Weight last 48 hrs Weight 79.832 kg Physical Exam 2 Narrative: The patient looks well lying supine with cheerful disposition though in pain upon movement. HEENT normocephalic atraumatic neck neck is supple cardiovascular heart rate is regular lungs are pretty much clear abdomen soft nontender nondistended unremarkable extremities are intact no edema has good pulses neurology has no focality lab studies lab studies reviewed and noted. Urinary Catheter Management: King: Cath Placed During This Visit: yes Urinary Catheter Date of Insertion: 05/31/25 Urinary Catheter Time of Insertion: 20:30 Data 05/31/25 19:59 05/31/25 19:59 A&P Assessment and plan 1. Closed left hip fracture: 2. Fall: 3. Hyperlipidemia: 4. Vitamin D deficiency: 5. DDD (degenerative disc disease), lumbar: 6. Seronegative rheumatoid arthritis of both hands: 7. Hyperglycemia: 8. Osteoarthritis of knees, bilateral: Plan: #1 Closed left hip fracture - Secondary to a mechanical fall tripping over a dog - Pain management with morphine - Monitor pain and optimize accordingly - Keep n.p.o. after midnight for possible left hip surgical repair - Gentle hydration with normal saline for volume #2 Status post mechanical fall tripping over a dog - Patient sustained a fall leading to left hip fracture #3 Chronic medical conditions Such as--degenerative disks disease/hyperlipidemia/vitamin D deficiency/seronegative rheumatoid arthritis Patient to continue home medications for the aforementioned chronic medical conditions #4 GI and DVT prophylaxis in place PDMP PDMP Reviewed: Last Reviewed 05/31/25 21:53 by Liane Galindo MD Attestations 2 Medical Necessity Statement*: Patient is seen patient at this time with left hip fracture for repair of the hip fracture and this will at least take minimum of 2 midnight stays. Patient is inpatient Coding Level of Care Code 76361 Diagnoses Closed left hip fracture S72.002A Fall W19.XXXA Hyperlipidemia E78.5 Vitamin D deficiency E55.9 DDD (degenerative disc disease), lumbar M51.369 Seronegative rheumatoid arthritis of both hands M06.041; M06.042 Hyperglycemia R73.9 Osteoarthritis of knees, bilateral M17.0 Time Spent (min) 60
[2025-05-31 21:57] LABS: UA Slide Review UA Slide Review Perf
[2025-06-01] VITALS (21 sets, daily range): BP systolic 90–118; BP diastolic 54–87; PULSE 64–106; RESP 16–20; TEMP 36.4–37.2; O2SAT 93–100
[2025-06-01] MEDS: morphine 4 mg/mL SDV 1 mL IVP ×2 (01:56→08:34)
[2025-06-01 03:47] LABS: Hematocrit 31.5 % (36-47); Hemoglobin 10.30 g/dL (11.27-16.99); Mean Corpuscular HGB Conc 32.7 g/dL (30-55); Mean Corpuscular Hemoglobin 27.0 pg (27-33); Mean Corpuscular Volume 82.7 fl (85-98); Nucleated Red Blood Cells % 0 %; Platelet Count 255 10^3/cmm (157-399); Red Blood Count 3.81 10^6/uL (3.85-5.65); White Blood Count 6.24 10^3/uL (3.29-11.43)
[2025-06-01 04:14] LABS: Alanine Aminotransferase 6 U/L (0-33); Albumin Level 3.3 g/dL (3.5-5.2); Alkaline Phosphatase 97 U/L (35-105); Anion Gap 14.1 (5-19); Aspartate Amino Transferase 10 U/L (0-32); Blood Urea Nitrogen 12 mg/dL (8-23); Calcium 8.4 mg/dL (8.5-10.5); Carbon Dioxide 24 mmol/L (22-29); Chloride 104 mmol/L (98-107); Creatinine Clr Calc Pharmacy 78.0899; Globulin 2.8 g/dL (1.3-4.6); Glucose 121 mg/dL (65-115); Magnesium 1.9 mg/dL (1.7-2.3); Osmolality Calculated 287 mOsm/kg (285-295); Potassium 4.1 mmol/L (3.5-5.1); Sodium 138 mmol/L (136-145); Total Protein 6.1 g/dL (6.6-8.7)
--- NOTE | 2025-06-01 09:26 | P.CONIM_ITS ---
Providers/Reason For Consult 2 Consulting Physician/Specialty*: Julius Morris MD/orthopedic surgery Reason for Consult*: Left hip fracture Attending Physician: Graham Almaguer DO Primary Care Provider: YADIEL Bui History of Present Illness History of Present Illness Jana Arriaga is a 60 year old female who yesterday tripped over her son's Labrador falling directly on her left hip. She was unable to bear weight and had severe pain in the area. She is brought to [facility] [place] ER where x- rays demonstrated femoral neck fracture minimally displaced partially angulated. She is subsequently admitted into the hospital through the hospitalist service and orthopedic consultation was obtained. Patient is resting comfortably in her room upon my arrival for discussion about repair of her fracture. Review of Systems 2 Narrative: System review upon 10 organ review we are remarkable for musculoskeletal disorder due to fracture of the left hip otherwise system review at this particular time is noted to be unremarkable. Eyes: Denies: photophobia ENMT: Denies: enlarged tonsils Musc: Denies: joint warmth Medications/Allergies Home Medications ?Medication ?Instructions ?Recorded ?Confirmed ?Last Taken ?Type rosuvastatin 5 mg tablet 5 mg PO QPM 12/19/24 5 05/30/25 History adalimumab 40 mg/0.8 mL 40 mg (0.8 mL) SUBCUT .Q7Day #4 ea 01/24/25 05/31/25 05/26/25 Rx subcutaneous pen kit (Humira Pen) Held on 02/01/25. Instructions: Resume on 02/15/25. diclofenac sodium 1 % topical gel 4 g topical QID PRN Pain #100 grams 01/24/25 05/31/25 01/31/25 Rx hydroxychloroquine 200 mg tablet 200 mg PO DAILY #90 t abs 01/24/25 05/31/25 05/31/25 Rx leflunomide 10 mg tablet 10 mg PO DAILY #90 tabs 05/1305/31/25 05/31/25 Rx pregabalin 150 mg capsule 150 mg PO TID #90 caps 01/2405/31/25 05/31/25 Rx left volar fast form #1 ea 01/30/25 06/01/25 Unkn own Rx custom volar splint #1 ea 02/13/25 06/01/25 Unkn own Rx hydrocodone 5 mg-acetaminophen 325 1 tab PO Q6H PRN Pa in 02/24/25 05/31/25 02/24/25 History mg tablet left wrist cock up brace #1 ea 04/09/25 06/01/25 Unkn own Rx pantoprazole 40 mg tablet,delayed 40 mg PO DAILY #30 t abs 05/17/25 05/31/25 05/31/25 Rx release (Protonix) duloxetine 60 mg capsule,delayed 60 mg PO DAILY 06/01/25 05/31/25 History release Allergies Allergy/AdvReac Type Severity Reaction Status Date / Time Penicillins Allergy ALGY-Hives Verified 05/17/25 15:00 Sulfa (Sulfonamide Allergy ALGY-Hives Verified 05/17/25 15:00 Antibiotics) Current Medications Generic Name Dose Route Start Last Admin Trade Name Freq PRN Reason Stop Dose Admin Docusate Sodium 100 mg 06/01/25 09:00 06/01/25 08:34 Docusate Sodium 100 Mg Capsule PO 100 mg BID JIM Administration Sodium Chloride 1,000 mls @ 75 mls/hr 05/31/25 21:33 05/31/25 21:48 Sodium Chloride 0.9% IV 75 mls/hr .[id number] JIM Administration Morphine Sulfate 4 mg 05/31/25 21:33 06/01/25 08:34 Morphine 4 Mg/Ml Sdv 1 Ml IVP 4 mg Q4H PRN Administration SEVERE PAIN Pantoprazole Sodium 40 mg 06/01/25 09:00 06/01/25 08:[address] 40 Mg Tablet PO 40 mg DAILY JIM Administration PFSH Acute 2 PFSH: Medical History (Updated 06/01/25 @ 09:29 by Julius Morris MD) Hyperlipidemia Seronegative rheumatoid arthritis of both hands Osteoarthritis of knees, bilateral Immunization counseling High risk medication use Inflammatory arthritis COVID-19 04/2021 Polymyalgia rheumatica Lumbago with sciatica Surgical History History of tubal ligation No history of previous surgery Family History Father Cancer Colon cancer Sister Cancer Colon cancer Diabetes Mother Diabetes Rheumatoid arthritis Grandmother CAD (coronary artery disease) Other Psychiatric illness Denies family history of PMR (polymyalgia rheumatica) Lupus Hyperlipidemia Lung disease Hypertension Stroke Social History Smoking and tobacco/nicotine status: never used tobacco/nicotine Alcohol intake: never Substance/Drug Use: never Lives independently: Yes Household members: family Housing: House Marital status: / Dietary Habits: Current diet type/program: regular Caffeine: Yes Exercise: What type of physical activity do you participate in?: none P hysical activity functional status: independent ambulation Safety: Seatbelt use: sometimes Drive intoxicated or ride with intoxicated motorcoach driver?: never Home Safety: Water heater temperature set < 120 degrees: Yes Working smoke detector in home: Yes Fire extinguisher in home: Yes Carbon monoxide detector in home: No Personal Safety: Do you feel safe at home: Yes Victim of physical abuse: No Victim of emotional abuse: No Victim of sexual abuse: No NHANES Social Connection/Isolation: In a typical week, how many times do you talk on the telephone with family, friends, or neighbors?: Three or More Times per Week How often do you get together with friends or relatives?: Twice per Week Social isolation score (0-1 are the most socially isolated patients): 1 Vitals/I&O/Wt Last Vital Signs Temp 97.9 F 06/01/25 07:46 Pulse 66 06/01/25 07:46 Resp 18 06/01/25 08:34 BP 101/58 06/01/25 07:46 Pulse Ox 94 06/01/25 07:46 O2 Del Method Room Air 06/01/25 07:46 05/31/25 06/01/25 06/01/25 22:59 06:59 14:59 Output Total 300 / 300 500 / 800 Balance -300 / -300 -500 / -800 Weight last 48 hrs Weight 155 lb Weight 176 lb Physical Exam 2 Narrative: Patient is awake and alert and appears understand our conversation with questions and answers noted given her. She is laying in bed supine with no evidence of shortening or rotation of her left lower extremity. She has tenderness to palpation over the greater trochanteric region of her hip. She is tenderness/pain with any motion of her left leg. She is neurovascularly intact distally. No other injuries to identify Urinary Catheter Management: King: Cath Placed During This Visit: yes Reason for Continuing Indwelling Catheter: Perioperative Use in Selected Surgeries Urinary Catheter Date of Insertion: 05/31/25 Urinary Catheter Time of Insertion: 20:30 Data 06/01/25 02:47 06/01/25 02:47 A&P Assessment and plan 1. Closed fracture of left hip, initial encounter: Patient by history, it exam, and x-ray demonstrates a femoral neck fracture of the left hip minimally displaced. Plan: Plan at this time is that I have offered her endoprosthetic replacement of her left hip to allow her to get back up and ambulatory in a quicker amount of time. I have discussed possible pin fixation but this will require nonweightbearing for the next 4 to 8 weeks prior to being able to weight-bear. Due to her age and appearance of her bone I believe that endoprosthetic replacement would be most beneficial for at this time and to get her back to an ambulatory status as soon as possible. All risk benefits treatment alternatives were discussed with her today and she is agreeable to this at this time. PDMP PDMP Reviewed: Not Reviewed Consult Attestations 2 Medical Necessity Statement: Patient is in need of surgical repair of a left hip fracture Coding Level of Care Code Critical Care >/= 30 minutes Diagnoses Closed fracture of left hip, initial encounter S72.002A Encounter type: initial encounter
--- NOTE | 2025-06-01 09:52 | ANES.PREANE2 ---
Pre-Anesthetic Assessment Height/Weight: Height 1.75 m Weight 70.307 kg Temp Pulse Resp BP Pulse Ox O2 Del Method 98.9 F 64 18 99/65 93 Room Air 06/01/25 09:40 06/01/25 09:40 06/01/25 09:40 06/01/25 09:40 06/01/25 09:40 06/01/25 09:40 Operation Date: 06/01/25 09:45 Proposed Procedures p Hemiarthroplasty Hip(Left) - Julius Morris MD Familial anesthetic complications: none Was Beta Justin taken within 24 hours: N/A Was Clonidine taken within 24 hours: N/A Last intake: Intake Last Liquid Date 05/31/25 Last Liquid Time 23:00 Last Solid Date 05/31/25 Last Solid Time 15:00 Social No alcohol and No tobacco Exam alert, oriented x 3, clear to auscultation bilaterally and regular rate & rhythm Airway Mallampati: Class II Dentition: other (no teeth) Chronic Renal Insufficiency Metabolic Hyperlipidemia [facility] [place] Rheumatoid Arthritis Anesthetic Plan ASA status: 3 Anesthesia: Regional (specify below) Risk of > 500 ml blood loss (7ml/kg in children): No Medications/Allergies Home Medications ?Medication ?Instructions ?Recorded ?Confirmed ?Last Taken ?Type rosuvastatin 5 mg tablet 5 mg PO QPM 12/19/24 05/31/25 05/30/25 History adalimumab 40 mg/0.8 mL 40 mg (0.8 mL) SUBCUT .Q7Day #4 ea 01/24/25 05/31/25 05/26/25 Rx subcutaneous pen kit (Humira Pen) Held on 02/01/25. Instructions: Resume on 02/15/25. diclofenac sodium 1 % topical gel 4 g topical QID PRN Pain #100 grams 01/24/25 05/31/25 01/31/25 Rx hydroxychloroquine 200 mg tablet 200 mg PO DAILY #90 tabs 01/24/25 05/31/25 05/31/25 Rx leflunomide 10 mg tablet 10 mg PO DAILY #90 tabs 01/24/25 05/31/25 05/31/25 Rx pregabalin 150 mg capsule 150 mg PO TID #90 caps 01/24/25 05/31/25 05/31/25 Rx left volar fast form #1 ea 01/30/25 06/01/25 Unknown Rx custom volar splint #1 ea 02/13/25 06/01/25 Unknown Rx hydrocodone 5 mg-acetaminophen 325 1 tab PO Q6H PRN Pain 02/24/25 05/31/25 02/24/25 History mg tablet left wrist cock up brace #1 ea 04/09/25 06/01/25 Unknown Rx pantoprazole 40 mg tablet,delayed 40 mg PO DAILY #30 tabs 05/17/25 05/31/25 05/31/25 Rx release (Protonix) duloxetine 60 mg capsule,delayed 60 mg PO DAILY 06/01/25 06/01/25 05/31/25 History release Allergies Allergy/AdvReac Type Severity Reaction Status Date / Time Penicillins Allergy ALGY-Hives Verified 05/17/25 15:00 Sulfa (Sulfonamide Allergy ALGY-Hives Verified 05/17/25 15:00 Antibiotics) Current Medications Generic Name Dose Route Start Last Admin Trade Name Freq PRN Reason Stop Dose Admin Docusate Sodium 100 mg 06/01/25 09:00 06/01/25 08:34 Docusate Sodium 100 Mg Capsule PO 100 mg On Hold: 06/01/25 09:39 BID JIM Administration Comment: Order held by Process Transfer Sodium Chloride 1,000 mls @ 75 mls/hr 05/31/25 21:33 05/31/25 21:48 Sodium Chloride 0.9% IV 75 mls/hr On Hold: 06/01/25 09:39 .[id number] JIM Administration Comment: Order held by Process Transfer Morphine Sulfate 4 mg 05/31/25 21:33 06/01/25 08:34 Morphine 4 Mg/Ml Sdv 1 Ml IVP 4 mg On Hold: 06/01/25 09:39 Q4H PRN Administration Comment: Order held by Process SEVERE PAIN Transfer Pantoprazole Sodium 40 mg 06/01/25 09:00 06/01/25 08:[address] 40 Mg Tablet PO 40 mg On Hold: 06/01/25 09:39 DAILY JIM Administration Comment: Order held by Process Transfer [facility] Anesthesia Medical History (Updated 06/01/25 @ 09:29 by Julius Morris MD) Hyperlipidemia Seronegative rheumatoid arthritis of both hands Osteoarthritis of knees, bilateral Immunization counseling High risk medication use Inflammatory arthritis COVID-19 04/2021 Polymyalgia rheumatica Lumbago with sciatica Surgical History History of tubal ligation No history of previous surgery Family History Father Cancer Colon cancer Sister Cancer Colon cancer Diabetes Mother Diabetes Rheumatoid arthritis Grandmother CAD (coronary artery disease) Other Psychiatric illness Denies family history of PMR (polymyalgia rheumatica) Lupus Hyperlipidemia Lung disease Hypertension Stroke Social History Smoking and tobacco/nicotine status: never used tobacco/nicotine Alcohol intake: never Substance/Drug Use: never Lives independently: Yes Household members: family Housing: House Marital status: / Data Anesthesia 06/01/25 02:47 06/01/25 02:47 Short CBC 05/31/25 06/01/25 Range/Units 19:59 02:47 WBC 7.89 6.24 (3.29-11.43) 10^3/uL Hgb 11.40 10.30 L (11.27-16.99) g/dL Hct 34.9 L 31.5 L (36-47) % MCV 83.1 L 82.7 L (85-98) fl Plt Count 326 255 (157-399) 10^3/cmm Neut % (Auto) 67.2 55.3 % Neut # (Auto) 5.31 3.45 (1.8-7.7) 10^3/uL BMP 05/31/25 06/01/25 19:59 02:47 Sodium 137 138 Potassium 4.1 4.1 Chloride 103 104 Carbon Dioxide 24 24 BUN 15 12 Creatinine 0.8 0.8 Glucose 116 H 121 H Calcium 8.8 8.4 L Cardiac Enzymes 05/31/25 Range/Units 19:59 Creatine Kinase 38 (26-192) U/L Liver Function 05/31/25 06/01/25 Range/Units 19:59 02:47 Total Bilirubin 0.2 0.3 (0.15-1.2) mg/dL AST 12 10 (0-32) U/L ALT 8 6 (0-33) U/L Alkaline Phosphatase 102 97 (35-105) U/L Albumin 3.6 3.3 L (3.5-5.2) g/dL Urine 05/31/25 Range/Units 20:40 Urine Color Yellow (Yellow) Urine Appearance Clear (CLEAR) Urine pH 5.5 (5-7) Ur Specific [place] 1.022 (1.005-1.030) Urine Protein 1+ A (Negative) Urine Glucose (UA) Negative (Normal) Urine Ketones Trace (Negative) Urine Nitrate Negative (Negative) Urine Bilirubin Negative (Negative) Ur Leukocyte Esterase Negative (Negative) Urine RBC 0-2 (0-2) /hpf Urine WBC 0-5 (0-5) /hpf Coags 05/31/25 19:59 PT 12.70 INR 0.89 APTT 26.8 Cardiac Studies: Echocardiogram 11/25/23
--- NOTE | 2025-06-01 11:45 | XRR_ITS ---
PROCEDURE INFORMATION: Exam: XR Pelvis Exam date and time: 06/01/2025 11:53 AM Age: 60 years old Clinical indication: Hip pain; Left hip; Prior surgery; Surgery date: Post-operative (0-2 days); Surgery type: Lt hip oralia; Additional info: Endoprosthetic replacement of left hip TECHNIQUE: Imaging protocol: Radiologic exam of the pelvis. Views: 1 or 2 view. COMPARISON: CR (PELVIS, ) 05/31/2025 6:29 PM FINDINGS: Bones/joints: Postsurgical changes of left hip prosthesis. Hardware appears intact. Osseous structures show no acute abnormality. Soft tissues: Postsurgical soft tissue changes including skin eamon. XR/XR pelvis 1-2V* [id number] IMPRESSION: Postsurgical changes related to left hip prosthesis with intact hardware and without acute osseous abnormality.
--- NOTE | 2025-06-01 11:47 | PC.CHAP ---
Pastoral Care Encounter/Spiritual Assessment Type of Contact [] Declined production specialist visit [] Patient/Family/Request visit [] Outpatient visit [] Follow-up visit [] Physician referral [] Code/Alert [x] Routine visit [] Staff referral [] Actively dying [] Patient sleeping [] Family support [] [x] Out of room [] Palliative care [] [] Receiving care in room [] Pre-surgical visit [] Trauma [] Long length of stay [] ICU visit [] Other: Relational/Emotional Strength [] Patient feels connected with others/family/visitors/staff [] Distress [] Loneliness/isolation [] Abandonment Spirituality of Patient [] Person of Jenny [] Attends Buddhist of their Jenny [] Believes in Prayer [] Reads Bible or Sikh materials [] There are Spiritual issues to be addressed 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 [] Prayer [] Active listening [] Non-anxious presence [] Spiritual/emotional support [] Crisis/trauma care [] Spiritual counseling [] Bereavement support [] Provided bereavement packet [] Provided Bible/devotional materials [] Provided toy/stuffed animal, coloring book to patient or family member [] Provided Communion [] Anointing/[place] [] Salvation [] Completed spiritual assessment [] Other: Impact on Illness or Injury [] Angry [] Fearful [] Anxious [] Often cries [] Exhaustion [] Unable to work [] Unable to attend church [] Unable to walk/stand [] Unable to read [] Unable to drive [] Unable to eat/drink [] Unable to sleep [] Unable to be with family [] Patient intubated [] Other: Summary Time spent with patient
[2025-06-01] MEDS: HYDROcodone-acetaminophen 5-325 mg Tablet 1 TAB PO (12:29)
[2025-06-01] MEDS: chlorhexidine gluconate 0.12% Btl 473 mL 30 ML MUCOUS MEM ×3 (12:31→21:05)
--- NOTE | 2025-06-01 14:24 | PM.OP ---
Operative Report Date of procedure: June 01, 2025 Surgeon: Julius Morris MD Procedure: Preoperative diagnosis: Left femoral neck fracture Postoperative diagnosis: Same Procedure: Endoprosthetic replacement left hip Surgeon: Julius Morris MD Anesthesia: General EBL: 50 cc Indications: Jana is a 60-year-old white female who tripped over a dog yesterday landing on her left hip. She had debilitating pain and inability to walk and subsequently was brought to [facility] for further evaluation. Patient was found to have on x-ray a minimally displaced femoral neck fracture on the left. Patient was admitted through the hospitalist service and orthopedic consultation was obtained. After initial evaluation and review of the x-rays it is felt patient would most benefit from endoprosthetic replacement of her left hip to bring her back to ambulatory status as soon as possible. All risk benefits treatment alternatives were discussed with her and she is agreeable to this at this time. Procedure: After obtaining her consent patient was taken on her hospital bed to the operating room and general anesthetic administered. Once good anesthesia achieved patient was placed upon the surgical bed and then into a lateral decubitus position with left hip up. Patient was held and placed on a pegboard with good padding. Left hip and leg were prepped and draped usual fashion. After surgical timeout the hip was flexed 90 degrees and a minimally invasive incision made over the posterior lateral aspect of the greater trochanter. Sharp dissection taken down to the subcutaneous tissues electrocautery used for hemostasis. Further dissection was done by electrocautery all the way down to the IT band which was divided through the central portion of the greater trochanter along the course of its fibers. Deep self-retaining retractors then placed within the hip and the leg was internally rotated. Dissection was taken on down the posterior aspect the greater trochanter down the femoral neck stripping all soft tissues from the femoral neck. Capsule is opened up in a T-type fashion. It is found that the capsule is very thickened and abundant on the superior and lateral aspects of. Once down to this point and femoral neck was cleared. Femoral template was placed on the femur and femoral neck cut was marked with electrocautery. Using a sagittal saw femoral cut was done. Bone fragments from the femoral cut were removed with a rongeur. At this point further dissection around the posterior superior aspect of the acetabulum releasing soft tissue was allowed to release the femoral head. Femoral head is sized to a size 48 trial femoral head. Trial femoral head was placed in acetabulum found to be good fit with good fill and stability. Attention was then turned towards the proximal femur. Box cut osteotome was used to make an entry point. Hand reaming was done and then broaching was done of the femur in a stepwise fashion from [address] up to a #4. #4 broach was found to be of adequate fit and fill and therefore a permanent size 4 femoral stem was placed with appropriate anteversion. Once impacted a trial femoral head that being a 48 with a standard neck was placed on this component and the hip was reduced and put the range of motion. Found to be stable. Leg lengths appear to be equal at this time. Hip was dislocated and the area was washed with copious amounts of sterile irrigation. Femoral component was dried and a permanent size 48 head with a standard neck was placed on the Gonsalves taper and impacted. Hip was reduced and again put range of motion found to be stable. A bump was placed between both legs to allow for abduction. Leg was slightly internally rotated and the capsule was repaired #1 Vicryl [id number] sutures. Deep fascia was reapproximated #1 Vicryl as well as #0 Vicryl [id number] sutures. Subcutaneous tissue reapproximated 0 Vicryl interrupted sutures and skin was closed with skin eamon. Wounds were cleaned and dry dressed with Xeroform gauze sterile gauze dressing and a Silverlon adhesive dressing. Patient was placed in abduction pillow awakened transferred recovery in stable condition
[2025-06-01] MEDS: sennosides-docusate Tablet 2 TAB PO (16:33)
[2025-06-01] MEDS: mupirocin oint 22 gm 1 APPLIC NASAL ×2 (16:34→16:36)
--- NOTE | 2025-06-01 18:44 | P.PN_ITS ---
Subjective 2 Subjective: Patient seen shortly postop in her room. She was lying in her bed. She was resting comfortably in Trendelenburg. Without complaints. In fact she said her pain was markedly improved Vitals/I&O/Wt Last Vital Signs Temp 98.0 F 06/01/25 17:20 Pulse 100 06/01/25 17:20 Resp 20 H 06/01/25 17:20 BP 112/77 06/01/25 17:20 Pulse Ox 97 06/01/25 17:20 O2 Del Method Room Air 06/01/25 17:20 O2 Flow Rate 6 06/01/25 11:49 06/01/25 06/01/25 06/01/25 06:59 14:59 22:59 Intake Total 0 / 0 480 / 480 Output Total 500 / 800 545 / 545 450 / 995 Balance -500 / -800 -545 / -545 30 / -515 Weight last 48 hrs Weight 70.307 kg Weight 79.832 kg Physical Exam 2 Narrative: Awake alert oriented in no acute distress Heart regular rate and rhythm normal S1-S2 without murmurs clicks gallops or rubs Lungs clear to auscultation anteriorly Abdomen soft nontender nondistended positive bowel sounds No edema in the bilateral lower extremities left extremity in a postsurgical wrap Urinary Catheter Management: King: Cath Placed During This Visit: yes Reason for Continuing Indwelling Catheter: Perioperative Use in Selected Surgeries Urinary Catheter Date of Insertion: 05/31/25 Urinary Catheter Time of Insertion: 20:30 Data 06/01/25 02:47 06/01/25 02:47 A&P Assessment and plan 1. Closed left hip fracture: - Secondary to a mechanical fall tripping over a dog - Pain management with morphine - Status post ORIF 2. Fall: 3. Hyperlipidemia: 4. Vitamin D deficiency: 5. DDD (degenerative disc disease), lumbar: 6. Seronegative rheumatoid arthritis of both hands: 7. Hyperglycemia: 8. Osteoarthritis of knees, bilateral: Plan: Continue home meds for depression GERD neurologic pain and hypercholesterolemia PDMP PDMP Reviewed: Not Reviewed Attestations 2 Medical Necessity Statement*: Patient requires 2 midnight stay for repair of the hip fracture and appropriate postoperative care Coding Level of Care Code Acute Code for Chg Fwd Diagnoses Closed left hip fracture S72.002A Fall W19.XXXA Hyperlipidemia E78.5 Vitamin D deficiency E55.9 DDD (degenerative disc disease), lumbar M51.369 Seronegative rheumatoid arthritis of both hands M06.041; M06.042 Hyperglycemia R73.9 Osteoarthritis of knees, bilateral M17.0
[2025-06-02] VITALS: BP 105/67; PULSE 81; RESP 18; TEMP 36.5; O2SAT 94
[2025-06-02 03:58] LABS: Hematocrit 29.9 % (36-47); Hemoglobin 9.60 g/dL (11.27-16.99); Mean Corpuscular HGB Conc 32.1 g/dL (30-55); Mean Corpuscular Hemoglobin 27.0 pg (27-33); Mean Corpuscular Volume 84.0 fl (85-98); Nucleated Red Blood Cells % 0 %; Platelet Count 261 10^3/cmm (157-399); Red Blood Count 3.56 10^6/uL (3.85-5.65); White Blood Count 6.39 10^3/uL (3.29-11.43)
[2025-06-02 04:00] VITALS: BP 97/56; PULSE 96; RESP 16; TEMP 37.4; O2SAT 92
[2025-06-02 04:25] LABS: Anion Gap 13.2 (5-19); Blood Urea Nitrogen 13 mg/dL (8-23); Calcium 8.0 mg/dL (8.5-10.5); Carbon Dioxide 25 mmol/L (22-29); Chloride 105 mmol/L (98-107); Creatinine Clr Calc Pharmacy 68.4662; Glucose 124 mg/dL (65-115); Osmolality Calculated 290 mOsm/kg (285-295); Potassium 4.2 mmol/L (3.5-5.1); Sodium 139 mmol/L (136-145)
[2025-06-02 08:13] VITALS: BP 100/71; PULSE 82; RESP 16; TEMP 36.3; O2SAT 94
[2025-06-02] MEDS: sennosides-docusate Tablet 2 TAB PO (08:50)
[2025-06-02] MEDS: multivitamin therapeutic Tablet 1 TAB PO (08:51)
[2025-06-02] MEDS: chlorhexidine gluconate 0.12% Btl 473 mL 30 ML MUCOUS MEM ×2 (08:51→12:09)
[2025-06-02] MEDS: mupirocin oint 22 gm 1 APPLIC NASAL (08:52)
--- NOTE | 2025-06-02 10:46 | P.PN_ITS ---
Subjective 2 Subjective: Jana is now postop day 1 from a endoprosthetic replacement of her left hip fracture. She is up to a chair today and doing quite well. She states she is having only incisional pain but is feeling much better than prior to surgery. She has no concerns or questions at this time. Vitals/I&O/Wt Last Vital Signs Temp 97.4 F L 06/02/25 08:13 Pulse 82 06/02/25 08:13 Resp 16 06/02/25 08:13 BP 100/71 06/02/25 08:13 Pulse Ox 94 06/02/25 08:13 O2 Del Method Room Air 06/02/25 08:13 O2 Flow Rate 6 06/01/25 11:49 06/01/25 06/02/25 06/02/25 22:59 06:59 14:59 Intake Total 530 / 1530 50 / 1580 Output Total 450 / 995 225 / 1220 Balance 80 / 535 -175 / 360 Weight last 48 hrs Weight 149 lb 14.4 oz Weight 155 lb Weight 176 lb Physical Exam 2 Narrative: On exam she is sitting up in a chair. She appears to be neurovascular intact in the left lower extremity. Dressings are clear Urinary Catheter Management: King: Cath Placed During This Visit: yes, but has since been removed by the nurse Reason for Continuing Indwelling Catheter: Decision to DC Catheter Urinary Catheter Date of Insertion: 05/31/25 Urinary Catheter Time of Insertion: 20:30 Date Urinary Catheter Removed: 06/02/25 Time Urinary Catheter Discontinued: 06:00 Data 06/02/25 02:54 06/02/25 02:54 A&P Assessment and plan 1. Closed fracture of left hip with routine healing, subsequent encounter: Patient is status post endoprosthetic replacement of the left hip secondary to a femoral neck fracture. All is going well. She been up and ambulatory some. She has done bed to chair transfer. Pain is well-controlled at this time. Only complaining of incisional pain. H&H is stable Plan: Plan at this time is to have her work with physical therapy today to master walking and steps. If all goes well she could be discharged today. I briefly spoke with the hospitalist on her case and they also feel comfortable with her being discharged. If discharged today have her follow-up in 2 weeks. She may remove the dressing in 3 to 4 days. She should cover her incision for showering until she is seen in the clinic and has her eamon removed. PDMP PDMP Reviewed: Not Reviewed Attestations 2 Medical Necessity Statement*: Patient is in need of physical therapy to master ambulation with a walker. She may weight-bear as tolerated on the left. Pain control is also necessary Coding Level of Care Code 34182 Diagnoses Closed fracture of left hip with routine healing, subsequent encounter S72.002D Encounter type: subsequent encounter Fracture healing: with routine healing
[2025-06-02 11:30] VITALS: BP 91/65; PULSE 96; RESP 17; TEMP 36.7; O2SAT 95
[2025-06-02] MEDS: ondansetron 2 mg/ML SDV 2 mL 4 MG IVP (12:08)
--- NOTE | 2025-06-02 15:08 | P.DS_ITS ---
Discharge Providers Date of Admission: 05/31/25 20:22 Date of Discharge: June 02, 2025 Attending Provider at Admission: Liane Galindo MD Attending Provider at Discharge: Graham Almaguer DO Primary Care Provider: YADIEL Bui Diagnoses at Discharge Discharge Diagnosis 1. Closed fracture of left hip with routine healing, subsequent encounter: Reason for Visit Reason for Visit: fall - left hip pain Brief History: Jana Arriaga is a 60 year old female with medical history significant for hyperlipidemia multiple fractures in the past seronegative rheumatoid arthritis osteoarthritis polymyalgia rheumatica, patient has sustained a mechanical fall after a dog in the house ran underneath her causing her to fall on her left hip. Patient fractured. Patient came to the emergency room in pain and for care and evaluation of the hip. Patient is noted to have left hip fracture. Orthopedics Dr. Rodney Madrid had been consulted for repair of the left hip. Patient is n.p.o. after midnight should be able to follow through with hip fracture repair tomorrow. Medically patient is cleared for surgery chest x-ray did not have any heart failure EKG were unremarkable. Patient is on room air hemodynamically stable with blood pressures heart rate and respiration pulse oxing at 99% on room air. Hospital Course Hospital Course Patient was taken to the OR on 06/01/2025 for an ORIF. Patient did well postoperatively. She is using a walker and ambulatory on her own without assistance. Hemodynamically she is stable and her pain is well-controlled Physical Exam Narrative: Awake alert oriented in no acute distress Heart regular rate and rhythm normal S1-S2 without murmurs clicks gallops or rubs Lungs clear to auscultation anteriorly Abdomen soft nontender nondistended positive bowel sounds No edema in the bilateral lower extremities left extremity in a postsurgical wrap Urinary Catheter Management: King: Cath Placed During This Visit: yes, but has since been removed by the nurse Reason for Continuing Indwelling Catheter: Decision to DC Catheter Urinary Catheter Date of Insertion: 05/31/25 Urinary Catheter Time of Insertion: 20:30 Date Urinary Catheter Removed: 06/02/25 Time Urinary Catheter Discontinued: 06:00 Discharge Data Studies Completed and Pending Completed Studies During Hospitalization Category Date Time Status XR chest 1V portable [id number] Stat Exams 05/31/25 18:56 Completed XR hip LT 2-3V wo/w pel* [id number] Stat Exams 05/31/25 18:23 Completed XR pelvis 1-2V* [id number] Routine Exams 06/01/25 11:45 Completed Pending at discharge Category Date Time Status Complete Blood Count w/Auto AM LABS Lab 06/03/25 04:00 Ordered Complete Blood Count w/Auto AM LABS Lab 06/04/25 04:00 Ordered Radiology Impressions Hip/Pelvis X-Ray 05/31/25 18:23 IMPRESSION: Mildly displaced left femoral neck fracture. Chest X-Ray 05/31/25 18:56 IMPRESSION: No acute cardiopulmonary disease. Pelvis X-Ray 06/01/25 11:45 IMPRESSION: Postsurgical changes related to left hip prosthesis with intact hardware and without acute osseous abnormality. Laboratory Results WBC 6.39 10^3/uL (3.29-11.43) 06/02/25 02:54 RBC 3.56 10^6/uL (3.85-5.65) L 06/02/25 02:54 Hgb 9.60 g/dL (11.27-16.99) L 06/02/25 02:54 Hct 29.9 % (36-47) L 06/02/25 02:54 MCV 84.0 fl (85-98) L 06/02/25 02:54 MCH 27.0 pg (27-33) 06/02/25 02:54 MCHC 32.1 g/dL (30-55) 06/02/25 02:54 RDW 14.3 % (12.1-15.1) 06/02/25 02:54 Plt Count 261 10^3/cmm (157-399) 06/02/25 02:54 MPV 11.4 fL (7.4-10.4) H 06/02/25 02:54 Neut % (Auto) 64.8 % 06/02/25 02:54 Lymph % (Auto) 19.1 % 06/02/25 02:54 [place] % (Auto) 13.8 % 06/02/25 02:54 Eos % (Auto) 0.9 % 06/02/25 02:54 Baso % (Auto) 0.9 % 06/02/25 02:54 Neut # (Auto) 4.14 10^3/uL (1.8-7.7) 06/02/25 02:54 Lymph # (Auto) 1.2 10^3/uL (0.8-4.8) 06/02/25 02:54 Rankin # (Auto) 0.9 10^3/uL (0.2-0.9) 06/02/25 02:54 Eos # (Auto) 0.1 10^3/uL (0.0-0.8) 06/02/25 02:54 Baso # (Auto) 0.1 10^3/uL (0.0-0.1) 06/02/25 02:54 Nucleated RBC % (auto) 0 % 06/02/25 02:54 Nucleated RBCs # 0.0 /100WBC 06/02/25 02:54 PT 12.70 SECONDS (12.1-14.9) 05/31/25 19:59 INR 0.89 (0.8-1.2) 05/31/25 19:59 APTT 26.8 SECONDS (23.9-36.7) 05/31/25 19:59 Sodium 139 mmol/L (136-145) 06/02/25 02:54 Potassium 4.2 mmol/L (3.5-5.1) 06/02/25 02:54 Chloride 105 mmol/L (98-107) 06/02/25 02:54 Carbon Dioxide 25 mmol/L (22-29) 06/02/25 02:54 Anion Gap 13.2 (5-19) 06/02/25 02:54 BUN 13 mg/dL (8-23) 06/02/25 02:54 Creatinine 0.9 mg/dL (0.5-0.9) 06/02/25 02:54 GFR Calculation 63.4 mL/min (90-130) L 06/02/25 02:54 Glucose 124 mg/dL (65-115) H 06/02/25 02:54 Calculated Osmolality 290 mOsm/kg (285-295) 06/02/25 02:54 Calcium 8.0 mg/dL (8.5-10.5) L 06/02/25 02:54 Phosphorus 3.8 mg/dL (2.5-4.5) 06/01/25 02:47 Magnesium 1.9 mg/dL (1.7-2.3) 06/01/25 02:47 Total Bilirubin 0.3 mg/dL (0.15-1.2) 06/01/25 02:47 AST 10 U/L (0-32) 06/01/25 02:47 ALT 6 U/L (0-33) 06/01/25 02:47 Alkaline Phosphatase 97 U/L (35-105) 06/01/25 02:47 Creatine Kinase 38 U/L (26-192) 05/31/25 19:59 Total Protein 6.1 g/dL (6.6-8.7) L 06/01/25 02:47 Albumin 3.3 g/dL (3.5-5.2) L 06/01/25 02:47 Globulin 2.8 g/dL (1.3-4.6) 06/01/25 02:47 Urine Color Yellow (Yellow) 05/31/25 20:40 Urine Appearance Clear (CLEAR) 05/31/25 20:40 Urine pH 5.5 (5-7) 05/31/25 20:40 Ur Specific [place] 1.022 (1.005-1.030) 05/31/25 20:40 Urine Protein 1+ (Negative) A 05/31/25 20:40 Urine Glucose (UA) Negative (Normal) 05/31/25 20:40 Urine Ketones Trace (Negative) 05/31/25 20:40 Urine Blood Negative (Negative) 05/31/25 20:40 Urine Nitrate Negative (Negative) 05/31/25 20:40 Urine Bilirubin Negative (Negative) 05/31/25 20:40 Urine Urobilinogen 0.2 mg/dL (Negative) 05/31/25 20:40 Ur Leukocyte Esterase Negative (Negative) 05/31/25 20:40 Urine RBC 0-2 /hpf (0-2) 05/31/25 20:40 Urine WBC 0-5 /hpf (0-5) 05/31/25 20:40 Ur Squamous Epith Cells 0-5 /hpf (0-5) 05/31/25 20:40 Amorphous Sediment Not Reportable 05/31/25 20:40 Urine Bacteria None seen /hpf (NONE) 05/31/25 20:40 Hyaline Casts 6.17 /lpf 05/31/25 20:40 Vitals Last Vital Signs Temp 98.0 F 06/02/25 11:30 Pulse 96 06/02/25 11:30 Resp 17 06/02/25 11:30 BP 91/65 06/02/25 11:30 Pulse Ox 95 06/02/25 11:30 O2 Del Method Room Air 06/02/25 08:13 O2 Flow Rate 6 06/01/25 11:49 Discharge Plan Discharge Patient Disposition: Home Condition: Stable Prescriptions: New hydrocodone-acetaminophen 5-325 mg Tablet 1 tab PO Q4H PRN (Reason: Moderate Pain) Qty: 20 0RF docusate sodium 100 mg Capsule 100 mg PO BID Qty: 30 0RF Continued (DME) left wrist cock up brace See Rx Instructions .Route .MEDSUPPLY Qty: 1 0RF Rx Instructions: As directed Humira Pen 40 mg/0.8 mL pen injector kit 40 mg SUBCUT .Q Qty: 4 5RF Rx Instructions: Sundays diclofenac sodium 1 % gel 4 g topical QID PRN (Reason: Pain) Qty: 100 1RF hydroxychloroquine 200 mg tablet 200 mg PO DAILY Qty: 90 1RF leflunomide 10 mg tablet 10 mg PO DAILY Qty: 90 1RF pregabalin 150 mg capsule 150 mg PO TID Qty: 90 5RF (DME) left volar fast form See Rx Instructions .Route .MEDSUPPLY Qty: 1 0RF Rx Instructions: As directed (DME) custom volar splint See Rx Instructions .Route .MEDSUPPLY Qty: 1 0RF Rx Instructions: As directed pantoprazole [Protonix] 40 mg tablet,delayed release (DR/EC) 40 mg PO DAILY Qty: 30 0RF rosuvastatin 5 mg tablet 5 mg PO QPM hydrocodone-acetaminophen 5-325 mg tablet 1 tab PO Q6H PRN (Reason: Pain) duloxetine 60 mg capsule,delayed release(DR/EC) 60 mg PO DAILY 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 OK for DC: Orthopedics and Hospitalist Discharge Order = DC NOW: Discharge Order (Routine); Ordered 06/02/25 Ordered By: Graham Almaguer Other Ambulatory Orders: DME: [facility] (Order) Location: None Selected Ordered By: Julius Morris Discharge Diet: Advance as tolerated Discharge Activity: As per PT/OT instructions Patient Instructions: Acute Wound Care (DC), Opioid Safety, Post Anesthesia Care, Patient Portal & Moni Instructions Discharge Attestations Time Spent in Discharge Care*: less than 30 min Quality Metrics Clinical Quality Measures [ No reported AMI, CVA or VTE this stay] Coding Level of Care Code Acute Code for Chg Fwd Diagnoses Closed fracture of left hip with routine healing, subsequent encounter S72.002D Encounter type: subsequent encounter Fracture healing: with routine healing
--- NOTE | 2025-06-03 08:31 | PC.OT ---
OT EVALUATION ORDERS RECEIVED; PATIENT D/C BEFORE EVALUATION COULD BE COMPLETED
== END 2025-06-02 16:55 | disposition home or self-care (01) | DRG 482 ==
LOC: ER 20:12 → MEDSURG 21:03
PROVIDERS: Orthopaedic Surgery; Admitting Provider Internal Medicine; Emergency Provider Emergency Medicine; PCP Nurse Practitioner Family; Visit Provider Internal Medicine
PROC: 0QR70JZ Replacement of Left Upper Femur with Synthetic Substitute, Open Approach (ICD-10-PCS; principal; 2025-06-01 09:15)
DX: S72.002A Fracture of unspecified part of neck of left femur, initial encounter for closed fracture (principal); W01.0XXA Fall on same level from slipping, tripping and stumbling without subsequent striking against object, initial encounter; M06.042 Rheumatoid arthritis without rheumatoid factor, left hand; M06.041 Rheumatoid arthritis without rheumatoid factor, right hand; E78.5 Hyperlipidemia, unspecified; E55.9 Vitamin D deficiency, unspecified; M51.369 Other intervertebral disc degeneration, lumbar region without mention of lumbar back pain or lower extremity pain; R73.9 Hyperglycemia, unspecified; M17.0 Bilateral primary osteoarthritis of knee
CPT/HCPCS: 36415; 51702; 71045; 72170; 73502; 80048; 80053; 81001; 82550; 83735; 84100; 85025; 85610; 85730; 93005; 96374; 96375; 97116; 97161; 99285; C1776; J1885; J2270; J2371; J2405; J2704; J3010; J3490; J7030; J9999

== ENCOUNTER → 2025-06-11 15:55 | Outpatient (BNVA) | payer MEDICAID, SELFPAY | PROVIDERS: PCP Nurse Practitioner Family; Visit Provider Orthopaedic Surgery | DX: M25.552 Pain in left hip (principal); S72.002D Fracture of unspecified part of neck of left femur, subsequent encounter for closed fracture with routine healing; X58.XXXD Exposure to other specified factors, subsequent encounter | CPT/HCPCS: 73502 ==

== ENCOUNTER → 2025-06-18 11:14 | Outpatient (BNVA) | payer MEDICAID, SELFPAY | PROVIDERS: PCP Nurse Practitioner Family; Visit Provider Orthopaedic Surgery | DX: Z98.890 Other specified postprocedural states (principal); S72.002D Fracture of unspecified part of neck of left femur, subsequent encounter for closed fracture with routine healing; X58.XXXD Exposure to other specified factors, subsequent encounter | CPT/HCPCS: 73502 ==

== ENCOUNTER → 2025-06-25 08:36 | Outpatient (BNVA) | payer MEDICAID, SELFPAY | PROVIDERS: PCP Nurse Practitioner Family; Visit Provider Physician Assistant | DX: Z98.890 Other specified postprocedural states (principal) | CPT/HCPCS: 73110 ==

== ENCOUNTER → 2025-08-19 08:43 | Outpatient (BNVA) | payer MEDICAID, SELFPAY | PROVIDERS: PCP Nurse Practitioner Family; Visit Provider Orthopaedic Surgery | DX: S72.002D Fracture of unspecified part of neck of left femur, subsequent encounter for closed fracture with routine healing (principal); X58.XXXD Exposure to other specified factors, subsequent encounter | CPT/HCPCS: 73502 ==

== ENCOUNTER 2025-09-10 11:20 | Outpatient (CLI) | payer MEDICAID, SELFPAY ==
--- NOTE | 2025-09-10 11:20 | MM_ITS ---
WS: [id number] Bilateral screening 3D tomosynthesis digital mammogram, 09/10/2025 11:25 AM Clinical Data: SCREENING Comparison: 08/28/2024, 02/24/2018, 07/15/2014, 01/08/2014, 12/25/2013. Findings: No spiculated masses or clustered calcifications are seen. There are no secondary signs of carcinoma. MM/MM scr BI tomosynthesis [id number] Impression: Negative bilateral mammogram unchanged. Recommend annual screening mammograms. BIRADS: 1 - Negative. FOLLOW UP: 1 Year Follow-up DENSITY: There are scattered areas of fibroglandular density. The CAD cylinder checker was used
== END 2025-09-10 11:21 | disposition home or self-care (01) ==
LOC: MOBLMAM 09-12 06:46
PROVIDERS: PCP Nurse Practitioner Family; Visit Provider Nurse Practitioner Family
DX: Z12.31 Encounter for screening mammogram for malignant neoplasm of breast (principal); R92.323 Mammographic fibroglandular density, bilateral breasts
CPT/HCPCS: 77063; 77067